=== PATIENT | male | born 1950 | race Caucasian/White ===

== ENCOUNTER 2017-07-27 15:06 | Inpatient (IN) | payer MEDICARE ==
--- OUTSIDE RECORDS SUMMARY | 2017-07-27 15:08 | XMS | Clinical Summary ---
:1950 Author Organization [facility] Address [address] [place] [address] Phone Care Team Providers Name Role Phone , Primary Care Provider Unavailable Allergies Not on File Current Medications Not on file Active Problems Not on file Social History Tobacco Use Types Packs/Day Years Used Date Never Assessed Sex Assigned at Date Recorded Not on file Last Filed Vital Signs Not on file Plan of Treatment Not on file Results Not on filefrom Last 3 Months
[2017-07-27] MEDS ORDERED: Ondansetron HCl/PF 4 MG/2 ML Vial IVP PRN (18:28)
[2017-07-27] MEDS ORDERED: Ondansetron ODT 4 MG TAB SL PRN (18:28)
[2017-07-27] MEDS ORDERED: Acetaminophen 325 MG TAB PO PRN (18:28)
[2017-07-27] MEDS ORDERED: Piperacillin/Tazobactam 3.375 GM in Sodium Chloride 0.9% 100 ML IVPB SCH ×2 (18:30→23:59)
[2017-07-27] MEDS ORDERED: traMADol HCl 50 MG TAB PO PRN (19:09)
[2017-07-27] MEDS ORDERED: PROVENTIL INHALER 6.7 G (200 INHALATIONS) INH PRN (19:09)
[2017-07-27] MEDS ORDERED: Fluticasone Propionate Nasal Spray 16 gm Bottle NASAL PRN (19:09)
--- NOTE | 2017-07-27 20:15 | HP ---
DATE OF ADMISSION: 07/27/2017 CHIEF COMPLAINT: Right hand pain. HISTORY OF PRESENT ILLNESS: Mr. Nelson is a 67-year-old male who was fishing 3 days ago. He was nuvia gifty a catfish when the fin spiked his right index finger. He had a very small puncture wound. Thi s does not bother him initially; however, over the next day, he developed swelling and pain of the f mindy. This has worsened. He had increased pain overnight. He presented to the [facility] earlier today and then was transferred for further care. He has been afebrile. He estela es any other injury. He has had no other recent infection. He is right hand dominant. He was on L evaquin from [place]. He has received vancomycin and Zosyn since arrival here today. PAST MEDICAL HISTORY: 1. Anxiety disorder. 2. Chronic back pain with lumbar radiculopathy. 3. Peptic ulcer disease. 4. Obesity. 5. Gastroesophageal reflux disease. 6. Benign prostatic hypertrophy. 7. History of encephalopathy from pain medication. PSYCHIATRIC HISTORY: Positive for anxiety disorder. PAST SURGICAL HISTORY: Ulcer surgery in 2008, hernia repair, tonsillectomy, cholecystectomy, previo us ACDF, previous lumbar back surgery, previous epidural spinal injection for radiculopathy and nerv e stimulator placement. SOCIAL HISTORY: The patient denies tobacco, alcohol, or drug use. ALLERGIES: To ZANAFLEX. FAMILY MEDICAL HISTORY: Noncontributory. PHYSICAL EXAMINATION: VITAL SIGNS: Temperature is 98.3, pulse is 78, respiratory rate 16, oxygen saturation 98, blood pre ssure 126/52. GENERAL: The patient is alert and oriented, sitting upright, in no apparent distress. RESPIRATORY: Breathing comfortably. ABDOMEN: Soft, nontender, nondistended. MUSCULOSKELETAL: The patient's right hand has swelling and erythema. He is very tender to palpatio n along the flexor tendon sheath. He has fusiform swelling. He has difficulty with flexion and ext ension of the finger. There is no open wound, no drainage. Sensation is intact distally. Two seco nd capillary refill. IMPRESSION: Early flexor tenosynovitis of the right index finger. PLAN: The patient has been started on vancomycin and Zosyn. We will continue this overnight. He s hould be n.p.o. at midnight tonight. He will elevate the hand. If he does not improve by tomorrow morning, we will take him to the operating room for irrigation and debridement of the index finger f lexor tendon sheath to hopefully eradicate infection and speed up his recovery process. He agrees w ith the plan and wants to proceed as scheduled.
[2017-07-27] MEDS: guaiFENesin ER 600 MG TAB PO SCH (21:30)
[2017-07-27] MEDS: Piperacillin/Tazobactam 3.375 GM in Sodium Chloride 0.9% 100 ML IVPB SCH (21:31)
[2017-07-27 21:59] VITALS: BMI 33.8
[2017-07-27] MEDS: ALPRAZolam 1 MG TAB PO PRN (22:21)
[2017-07-27] MEDS ORDERED: Vancomycin HCl 1.5 GM in Sodium Chloride 0.9% 250 ML 300 ML IVPB SCH (23:00)
[2017-07-28] MEDS: Piperacillin/Tazobactam 3.375 GM in Sodium Chloride 0.9% 100 ML IVPB SCH ×4 (04:00→23:35)
[2017-07-28] MEDS: Mometasone/Formoterol 120 PUFF INHALER INH SCH ×2 (08:21→19:58)
[2017-07-28] MEDS ORDERED: Bupivacaine PF 0.5% 30 ML VIAL ONE (08:59)
[2017-07-28] MEDS ORDERED: Midazolam HCl 2 mg/2 ml Vial ONE (08:59)
[2017-07-28] MEDS: guaiFENesin ER 600 MG TAB PO SCH ×2 (09:00→20:37)
[2017-07-28] MEDS ORDERED: Morphine Sulfate 2 MG/ML SYRINGE SLOW IVP PRN (09:22)
[2017-07-28] MEDS ORDERED: Propofol 200 MG/20 ML VIAL ONE (09:31)
[2017-07-28] MEDS ORDERED: Dexamethasone 20 MG/5 ML VIAL ONE (09:31)
[2017-07-28] MEDS ORDERED: Ondansetron HCl/PF 4 MG/2 ML Vial ONE (09:31)
--- NOTE | 2017-07-28 15:52 | OP ---
DATE OF OPERATION: 07/28/2017 OPERATION: Irrigation and debridement of right index finger infection with irrigation of flexor ten don sheath. PREOPERATIVE DIAGNOSIS: Right flexor tenosynovitis of the index finger with hand infection. POSTOPERATIVE DIAGNOSIS: Right flexor tenosynovitis of the index finger with hand infection. COMPLICATIONS: None. ESTIMATED BLOOD LOSS: Minimal. SURGEON: Mahendra Grover M.D. ANESTHESIA: General plus local. INDICATIONS: Mr. Nelson is a 67-year-old male who has developed a severe infection of the right index finger after a catfish fin injured his hands. He has been indicated for irrigation and debridement to eradicate infection and hopefully prevent further complication. Risks have been reviewed. He h as elected to proceed with the operation. DESCRIPTION OF PROCEDURE: Mr. Nelson was identified in the preoperative holding area. His correct ex tremity was marked. He was carried to the operating room. He was positioned supine. General anest hesia was induced. A multidisciplinary timeout was performed. The right upper extremity was preppe d and draped in sterile fashion. We began the procedure with incision of the index finger at the patient's puncture wound. We extend ed this over the palmar aspect to the flexor tendon. We exposed the tendon sheath. The sheath was incised. We cultured fluid from the sheath. At this point, we made a second small oblique incision over the palm proximal to the MCP joint. We again dissected down to the flexor tendon sheath. The sheath was opened once more. This allowed access proximally and distally. We then thoroughly irri gated with copious lavage, flushing the tendon sheath itself with an angiocatheter. We were able to achieve a good irrigation with copious fluid. Once we had a thorough irrigation, we loosely closed the wounds with 4-0 nylon suture. A sterile dressing was applied. The patient was then taken to [facility] recovery room in good condition without complication.
[2017-07-28] MEDS: Vancomycin HCl 1 GM in Premix Bag 1 BAG IVPB SCH (20:37)
[2017-07-29] MEDS: Piperacillin/Tazobactam 3.375 GM in Sodium Chloride 0.9% 100 ML IVPB SCH ×2 (05:50→12:18)
[2017-07-29] MEDS: Mometasone/Formoterol 120 PUFF INHALER INH SCH ×2 (06:23→18:43)
[2017-07-29] MEDS: HYDROcodone/Acetaminophen 5/325 mg Tablet PO PRN ×3 (06:38→21:41)
[2017-07-29] MEDS: ALPRAZolam 1 MG TAB PO PRN ×2 (06:38→23:30)
[2017-07-29] MEDS ORDERED: Milk Of Magnesia 30 ML UDCUP PO PRN (09:02)
[2017-07-29] MEDS: Vancomycin HCl 1 GM in Premix Bag 1 BAG IVPB SCH ×2 (10:10→10:26)
[2017-07-29] MEDS: guaiFENesin ER 600 MG TAB PO SCH ×2 (10:10→21:35)
[2017-07-29] MEDS: Amoxicillin/Potassium Clav 875 MG TAB PO SCH (21:34)
[2017-07-29] MEDS: Docusate 100 MG CAP PO SCH (21:35)
[2017-07-30] MEDS: Mometasone/Formoterol 120 PUFF INHALER INH SCH (07:08)
[2017-07-30 09:12] VITALS: BP 169/112; TEMP 98.4
[2017-07-30] MEDS: Docusate 100 MG CAP PO SCH (09:26)
[2017-07-30] MEDS: guaiFENesin ER 600 MG TAB PO SCH (09:26)
[2017-07-30] MEDS: Amoxicillin/Potassium Clav 875 MG TAB PO SCH (09:26)
[2017-07-30] MEDS: HYDROcodone/Acetaminophen 5/325 mg Tablet PO PRN (09:31)
--- NOTE | 2017-07-31 12:59 | DIS ---
DATE OF ADMISSION: 07/27/2017 DATE OF DISCHARGE: 07/30/2017 PREOPERATIVE DIAGNOSIS: Right flexor tenosynovitis to the index finger with hand infection secondar y to catfish sting. DISCHARGE DIAGNOSIS: Right flexor tenosynovitis to the index finger with hand infection secondary t o catfish sting. PROCEDURE: The patient underwent irrigation and debridement of right index finger infection with ir rigation of flexor tendon sheath. HOSPITAL COURSE: Hospital stay was unremarkable. The patient did not get a block, it did not wear off until late the second day, and by the time he started feeling better and moving his hand, he was a little bit dizzy , so he did spent a little more time in the hospital, though was anticipated, bu t he had no really other dramatic hospital complications. DISCHARGE CONDITION: Good/stable. DISPOSITION: Home. FOLLOWUP: Followup would be in 7-10 days, sooner if there are problems or concerns. DISCHARGE MEDICATIONS: Given with usage instructions. This is Seamus Hayward PA-C, dictating for Mahendra Grover M.D.
== END 2017-07-30 11:23 | disposition home or self-care (01) | DRG 514 ==
LOC: ERS 15:06 → SURG B 18:15
PROVIDERS: ADMIT Orthopaedic Surgery; ATTEND Orthopaedic Surgery
PROC: 0JDJ0ZZ Extraction of Right Hand Subcutaneous Tissue and Fascia, Open Approach (ICD-10-PCS; principal; 2017-07-28)
DX: M65.841 Other synovitis and tenosynovitis, right hand (principal); K27.9 Peptic ulcer, site unspecified, unspecified as acute or chronic, without hemorrhage or perforation; L03.011 Cellulitis of right finger; F41.9 Anxiety disorder, unspecified; G89.29 Other chronic pain; M54.9 Dorsalgia, unspecified; M54.16 Radiculopathy, lumbar region; E66.9 Obesity, unspecified; Z68.33 Body mass index [BMI] 33.0-33.9, adult; K21.9 Gastro-esophageal reflux disease without esophagitis; N40.0 Benign prostatic hyperplasia without lower urinary tract symptoms; Z88.8 Allergy status to other drugs, medicaments and biological substances; Z96.651 Presence of right artificial knee joint
CPT/HCPCS: 87070; 87205; 94664; 96374; A4216; J1100; J2250; J2270; J2405; J2543; J2704; J3370; J7050; S0020

== ENCOUNTER 2018-04-25 18:00 | Emergency (ER) | payer MEDICARE ==
--- NOTE | 2018-04-25 21:53 | CT ---
CTA OF THE CHEST WITH CONTRAST: 04/25/18 HISTORY: Elevated D-dimer and shortness of breath. TECHNIQUE: Multiple contiguous axial images were obtained in a CTA of the chest per pulmonary embolism protocol. 3D oblique MIP reformats and direct coronal reformats were performed. FINDINGS: The pulmonary arteries are well opacified without filling defects to suggest pulmonary emboli. The he art is normal in size. No hilar or mediastinal lymphadenopathy are seen. Atelectasis is seen in the dependent aspect of the lungs. No pneumothorax or pleural effusion are see n. No focal infiltrates or suspicious pulmonary nodules are seen. The visualized subdiaphragmatic structures are unremarkable. The patient is status post cholecystecto my. Degenerative changes are seen in the spine. A spinal stimulation device is seen in the mid thorac ic spine. the chest wall soft tissues are unremarkable. IMPRESSION: No evidence of pulmonary thromboembolism. POS: [facility]
[2018-04-25 22:45] LABS: Troponin I 0.035 ng/mL (< 0.028)
== END 2018-04-25 22:45 | disposition home or self-care (01) ==
LOC: ERS 18:00
DX: R06.00 Dyspnea, unspecified (principal); J06.9 Acute upper respiratory infection, unspecified; K21.9 Gastro-esophageal reflux disease without esophagitis; F17.220 Nicotine dependence, chewing tobacco, uncomplicated; Z79.899 Other long term (current) drug therapy
CPT/HCPCS: 36415; 71275; 83605; 83690; 85379; 94640; J7620

== ENCOUNTER 2019-02-13 19:33 | Emergency (ER) | payer MEDICARE ==
--- NOTE | 2019-02-13 20:53 | RAD ---
Chest 2 views HISTORY: Fall. Chest injury. COMPARISON: 04/25/2018. FINDINGS: Cardiac silhouette and pulmonary vasculature are unremarkable. Mediastinum is midline with dorsal column stimulator leads. No confluent airspace consolidation, pneumothorax, or pleural fluid. Degenerative changes of the thoracic spine. IMPRESSION: No active cardiopulmonary abnormalities are demonstrated.
--- NOTE | 2019-02-13 20:54 | RAD ---
Left knee 4 views HISTORY: Left knee injury. FINDINGS: Joint spaces are preserved. Osteophytosis most pronounced at the tibial spines. Tiny linear ossific fragment lies immediately medial to the medial tibial spine. No acute fracture, dislocation, or fluid distention of the suprapatellar bursa are apparent. IMPRESSION: Degenerative changes. No acute osseous abnormalities are demonstrated.
--- NOTE | 2019-02-13 21:15 | CT ---
CT head noncontrast HISTORY: Head injury. COMPARISON: 01/27/2018. FINDINGS: There is no evidence of acute intracranial hemorrhage or infarct. Postoperative changes lef t parietal calvarium with underlying encephalomalacia, stable. 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 There is no mass effect or shift of midline structures. Visualized para nasal sinuses remain well aerated. IMPRESSION: Chronic type findings are stable. No acute intracranial abnormalities are demonstrated.
[2019-02-13] MEDS ORDERED: Ketorolac Tromethamine 30 MG/ML VIAL ONE (21:56)
[2019-02-13] MEDS ORDERED: Acetaminophen 325 MG TAB ONE (21:56)
[2019-02-13] MEDS ORDERED: Bacitracin Zinc 1 Packet ONE (22:14)
== END 2019-02-13 22:52 | disposition home or self-care (01) ==
LOC: ERS 19:33
DX: S51.811A Laceration without foreign body of right forearm, initial encounter (principal); S80.212A Abrasion, left knee, initial encounter; K21.9 Gastro-esophageal reflux disease without esophagitis; F41.9 Anxiety disorder, unspecified; F17.220 Nicotine dependence, chewing tobacco, uncomplicated; Z79.899 Other long term (current) drug therapy; Z79.51 Long term (current) use of inhaled steroids; W18.30XA Fall on same level, unspecified, initial encounter; Y93.02 Activity, running
CPT/HCPCS: 70450; 71046; 96372; J1885

== ENCOUNTER 2020-09-27 14:38 | Inpatient (IN) | payer MEDICARE ==
[~2020-09-27 14:38] MED LIST: Iopamidol-370 76% 500 ML 1 ML ONE
[2020-09-27] MEDS ORDERED: Senokot S 8.6-50 MG TAB PO PRN (16:05)
[2020-09-27] MEDS ORDERED: Acetaminophen 325 MG TAB PO PRN (16:05)
[2020-09-27] MEDS ORDERED: Ondansetron PF 4 MG/2 ML Vial IVP PRN (16:05)
[2020-09-27] MEDS ORDERED: Ketorolac Tromethamine 30 MG/ML VIAL ONE (16:28)
[2020-09-27 16:40] LABS: PTT 29.9 sec (22.9-36.1); Prothrombin Time 13.7 sec (12.0-14.7)
[2020-09-27] MEDS ORDERED: Albuterol 200 PUFF (6.7GM INHALER) INH PRN (16:42)
[2020-09-27] MEDS ORDERED: Morphine 4 MG/ML VIAL ONE (17:04)
[2020-09-27] MEDS ORDERED: Dexamethasone 4 mg/ml Vial ONE (17:04)
[2020-09-27 17:13] LABS: SARS-CoV-2 NAA Rapid Test Not Detected (NotDetected)
[2020-09-27] MEDS ORDERED: cefTRIAXone\\ROCEPHIN 1 GM in Sodium Chloride 0.9% 100 ML IVPB SCH (18:00)
--- NOTE | 2020-09-27 21:09 | CT ---
CTA THORAX WITH CONTRAST: 09/27/20at 8:40 p.m. (Computed Tomographic Angiography, chest(noncoronary) with contrast material, and image postprocessin g) (PE protocol) HISTORY: 70-year-old male with chest pain and hypoxia with dyspnea. TECHNIQUE: IV injection of iodinated contrast: 100 mL Isovue 370 Scan acquisition timing attempted to coincide with iodinated contrast bolus reaching maximal density in pulmonary arteries. 3D MIP reconstructions. COMPARISON: 04/25/18. FINDINGS: There is a new finding of multifocal patchy infiltrates in central and peripheral locations throughou t superior and posterior segments of bilateral lower lobes, bilateral upper lobes, right greater than left. There is milder involvement of the right middle lobe. No pleural effusion or pneumothorax. No thoracic aortic aneurysm or dissection. No evidence of pulmonary thromboembolism. There is again demonstration of a small soft tissue density filling defect in the right side of the l umen of the distal trachea, including at the justino. This could be recurrent secretion or a polyp. No high grade stenosis of trachea or bilateral mainstem bronchi. IMPRESSION: 1. Moderately severe bilateral lower lobe and upper lobe infiltrates representing pneumonia. 2. No pulmonary thromboembolism. jn[] POS: [facility]
[2020-09-27] MEDS: Azithromycin 500 MG in Sodium Chloride 0.9% 250 ML 250 ML IVPB SCH (22:53)
[2020-09-27] MEDS: Famotidine 20 MG TAB PO SCH (22:53)
[2020-09-27] MEDS: Morphine 4 MG/ML VIAL SLOW IVP PRN (22:54)
[2020-09-27] MEDS: Enoxaparin Sodium 40 MG/0.4 ML SYRINGE SC SCH (22:54)
[2020-09-27] MEDS: Mometasone 200 MCG/Formoterol 5 MCG 120 PUFF INHALER INH SCH (22:58)
[2020-09-27 23:46] VITALS: BMI 33.0
--- NOTE | 2020-09-28 00:18 | HP ---
CHIEF COMPLAINT: Shortness of breath. HISTORY OF PRESENT ILLNESS: The patient is a 70-year-old male, who initially presented at [facility] with complaints of shortness of breath and some chest pain going on for the past week. The patient states that he was at [facility] and was recently discharged on last week . He was unable to tell me what he was treated for. The patient states that he had a Fountain catheter placed at [facility]. He states that his pain in the chest described as tightness, however, this has been going on for the past week. He denies lifting any heavy objects. The patient lives alone. He denies any fever or chills. Denies any cough or sputum production. REVIEW OF SYSTEMS: All negative except for the ones mentioned above in the HPI. PAST MEDICAL HISTORY: 1. The patient has a history of anxiety disorder, chronic back pain with lumbar radiculopathy. 2. Peptic ulcer disease. 3. Obesity. 4. Gastroesophageal reflux disease. 5. Benign prostatic hypertrophy. 6. History of encephalopathy from pain medications. 7. Hepatitis C. PAST SURGICAL HISTORY: 1. He has a history of ulcer surgery in 2008, hernia repair. 2. Tonsillectomy. 3. Cholecystectomy, lumbar back surgery. 4. Previous epidural spinal injection for radiculopathy and nerve stimulator placement. SOCIAL HISTORY: The patient chews tobacco. Denies any alcohol use or drug use. He is a full code. Lives by himself. ALLERGIES: HE IS ALLERGIC TO ZANAFLEX. FAMILY HISTORY: No history of heart disease or stroke. PHYSICAL EXAMINATION: VITAL SIGNS: As of the following; temperature of 97.9, 99% on room air, 111/65, 81 pulse rate, 14. GENERAL: He is awake, alert, and oriented x3. Does not appear in any distress. CV: S1, S2 present. No murmurs, rubs, or gallops. LUNGS: Clear to auscultation. No rhonchi or wheezes noted. ABDOMEN: Soft and nontender. Bowel sounds are present x2. He does have a mid abdominal scar. EXTREMITIES: Mild 1+ lower extremity edema. Pedal pulses are present x2. Neurovascular escoto, he is able to move bilateral upper extremity and bilateral lower extremity. MEDICATIONS: This is per the ER note. The patient does not recall them by heart. 1. Alprazolam 2 mg t.i.d. as needed. 2. Ambien 5 mg daily. 3. Flomax 0.4 mg daily. 4. Protonix 40 mg daily. 5. Zofran as needed and promethazine as needed. REVIEW OF SYSTEMS: As mentioned, all negative except for the ones mentioned in the HPI. LABORATORY RESULTS: WBC of 6.7, hemoglobin of 11.1, hematocrit of 32.1, platelets of 193. He has no neutrophils that are elevated. Chemistry; sodium 138, potassium of 3.7, BUN of 8, creatinine 0.71, glucose is 150. His BNP is 129. His troponin is 0.036. His LDH is 326. The patient had a chest x-ray done that indicate interval appearance of patchy bilateral infiltrates, worse in the right lung. Infectious is presumed and COVID should be strongly considered. ASSESSMENT AND PLAN: The patient is a 70-year-old male, who presents to the hospital with shortness of breath. 1. Shortness of breath could be secondary to COVID pneumonia versus influenza versus bacterial pneumonia. At this time, he does not have a significant elevated white count. He is afebrile. He is on room air. His BNP is just mildly elevated. Also, heart failure is definitely a possibility. His last echocardiogram was in 2016, which indicated an EF of 55% to 60% with mild MR and TR. I will go ahead and get records from [facility] to see if he was recently there. He will be undergoing a CTA. I will take a look at that. I will start him on prophylactic Decadron for now. We will check COVID swab on him and continue to monitor. I will also go ahead and start the patient on prophylactic antibiotics. He states that he was in the hospital and was discharged last . At this time, I will put him on some vancomycin and some Zosyn until I get the CT scan and then will go from there. I will also order some inflammatory markers and put him on a droplet precaution. 2. Chest pain. The patient's pain is reproducible upon palpation. His troponins are mildly elevated, however, they are not significantly elevated from his previous one. The patient is unable to tell me if he really has seen a cafeteria director. Does not know if he has any stents. He is not a very great historian. I will go ahead and order an echocardiogram once his COVID is ruled out. 3. Chronic back pain. We will continue his home medications. 4. Deep venous thrombosis prophylaxis. We will put the patient on subcu Lovenox. Job ID: [id number]
[2020-09-28] MEDS: Piperacillin/Tazobactam 3.375 GM in Sodium Chloride 0.9% 100 ML IVPB SCH ×5 (00:56→23:55)
[2020-09-28 01:44] LABS: Bacteria/HPF None Seen HPF (None Seen); Bilirubin Negative (Negative); Blood, Urine 2+ (Negative); Clarity Clear (Clear); Glucose, Urine (Dipstick) Normal (Negative); Ketone, Urine Negative (Negative); Leukocyte Negative Leu/uL (Negative); Nitrite Negative (Negative); Protein, Urine (Dipstick) Negative (Neg-Trace); Specific Gravity, Urine 1.013 (1.002-1.036); Squamous Epithelial None Seen HPF (0-3); Urobilinogen Normal mg/dL (Less than 2); WBC/HPF 0-3 HPF (0-3)
[2020-09-28 01:52] LABS: Urine Culture Reflex No No
[2020-09-28 05:44] LABS: #Lymphocytes 0.7 thou/uL (1.20-3.40); #Monocytes 0.1 thou/uL (0.11-0.59); #Neutrophils 1.6 thou/uL (1.40-6.50); %Basophils 0.4 % (0.0-1.0); %Eosinophils 0.1 % (0.0-10.0); %Lymphocytes 30.5 % (21.0-51.0); %Monocytes 3.3 % (0.0-10.0); %Neutrophils 65.7 % (42.0-75.0); Mean Corpuscular HGB CONC 33.6 g/dL (32.0-36.0); Mean Corpuscular Hemoglobin 30.6 pg (27.0-31.0); Mean Corpuscular Volume 91.2 fL (78.0-98.0); Mean Platelet Volume 7.9 fL (7.4-10.4); Platelet Count 212 thou/uL (130-400); RBC Distribution Width 12.9 % (11.5-14.5); Red Blood Cell (RBC) Count 3.59 mill/uL (4.70-6.10); White Blood Cell (WBC) Count 2.4 thou/uL (4.8-10.8)
[2020-09-28 06:09] LABS: ALT (SGPT) 21 U/L (8-55); AST (SGOT) 23 U/L (5-34); Albumin 3.1 g/dL (3.4-4.8); Alkaline Phosphatase 91 U/L (40-110); Anion Gap 14 mmol/L (10-20); BUN (Urea Nitrogen) 11 mg/dL (8.4-25.7); Bilirubin, Total 0.5 mg/dL (0.2-1.2); Calc. Creatinine Clearance 135 mL/min (70-130); Calcium 8.4 mg/dL (7.8-10.44); Carbon Dioxide 19 mmol/L (23-31); Chloride 110 mmol/L (98-107); Globulin 3.8 g/dL (2.4-3.5); Glucose 204 mg/dL (80-115); Potassium 4.6 mmol/L (3.5-5.1); Protein, Total 6.9 g/dL (5.8-8.1); Sodium 138 mmol/L (136-145)
[2020-09-28] MEDS: Morphine 4 MG/ML VIAL SLOW IVP PRN ×3 (06:16→16:31)
[2020-09-28] MEDS: Mometasone 200 MCG/Formoterol 5 MCG 120 PUFF INHALER INH SCH ×2 (06:17→18:32)
[2020-09-28] MEDS ORDERED: Dexamethasone 4 mg/ml Vial SLOW IVP SCH (09:00)
[2020-09-28] MEDS: Enoxaparin Sodium 40 MG/0.4 ML SYRINGE SC SCH ×2 (09:02→20:04)
[2020-09-28] MEDS: Famotidine 20 MG TAB PO SCH ×2 (09:03→20:04)
[2020-09-28] MEDS: Tamsulosin HCl 0.4 MG CAP PO SCH (09:03)
[2020-09-28] MEDS: Gabapentin 300 MG CAP PO SCH (09:03)
[2020-09-28 14:45] LABS: SARS-CoV-2 MS2 Positive; SARS-CoV-2 N Gene Negative; SARS-CoV-2 S Gene Negative; SARS-CoV-2 by NAA Not Detected (NotDetected); SARS-CoV-2 orf1ab Negative
[2020-09-28] MEDS: Azithromycin 500 MG in Sodium Chloride 0.9% 250 ML 250 ML IVPB SCH (20:10)
[2020-09-28] MEDS ORDERED: chlorproMAZINE HCl 50 MG/2 ML AMP IM PRN (20:54)
[2020-09-28] MEDS: ALPRAZolam 1 MG TAB PO PRN (21:51)
[2020-09-28] MEDS: HYDROcodone/Acetaminophen 5/325 mg Tablet PO PRN (23:56)
[2020-09-29] MEDS ORDERED: Baclofen 10 MG TAB PO PRN (02:32)
[2020-09-29] MEDS: HYDROcodone/Acetaminophen 5/325 mg Tablet PO PRN ×4 (04:01→23:05)
[2020-09-29] MEDS: Piperacillin/Tazobactam 3.375 GM in Sodium Chloride 0.9% 100 ML IVPB SCH ×2 (06:13→12:11)
[2020-09-29] MEDS: Mometasone 200 MCG/Formoterol 5 MCG 120 PUFF INHALER INH SCH ×2 (06:14→17:38)
[2020-09-29] MEDS ORDERED: Furosemide 20 MG/2 ML VIAL SLOW IVP SCH (08:00)
--- NOTE | 2020-09-29 08:05 | PDOC.HOSPP ---
- Subjective Encounter Date: 09/29/20 Encounter Time: 11:15 Subjective: pt up in bed complains of pain to his right shoulder. - Objective Vital Signs & Weight: Vital Signs (12 hours) Temp Pulse Resp BP Pulse Ox 09/29/20 06:14 78 20 95 09/29/20 03:50 97.9 F 72 20 130/67 95 09/28/20 23:25 97.6 F 84 20 120/59 L 93 L 09/28/20 21:45 97.7 F 86 18 107/56 L 95 Weight Weight 230 lb 1.6 oz I&O: 09/28/20 09/29/20 09/30/20 06:59 06:59 06:59 Intake Total 240 Output Total 800 1300 Balance -560 -1300 Result Diagrams: 09/29/20 09:05 09/29/20 09:05 Hospitalist ROS - Review of Systems Cardiovascular: denies: chest pain, palpitations, orthopnea, paroxysmal noc. dyspnea, edema, light headedness, other Gastrointestinal: denies: nausea, vomiting, abdominal pain, diarrhea, constipation, melena, hematochezia, other Genitourinary: denies: dysuria, frequency, incontinence, hematuria, retention, other - Medication Medications: Active Medications Generic Name Dose Route Start Last Admin Trade Name Freq PRN Reason Stop Dose Admin Acetaminophen 650 mg 09/27/20 16:05 09/28/20 04:31 Acetaminophen 325 Mg Tab PO 650 mg Q6H PRN Administration Headache/Fever/Mild Pain (1-3) Hydrocodone Bitart/Acetaminophen 1 tab 09/28/20 23:43 09/28/20 23:56 Hydrocodone/Acetaminophen 5/325 Mg Tablet PO 1 tab Q4H PRN Administration Moderate Pain (4-6) Alprazolam 2 mg 09/28/20 03:54 09/28/20 21:51 Alprazolam 1 Mg Tab PO 2 mg TIDPRN PRN Administration ANXIETY Chlorpromazine HCl 25 mg 09/28/20 20:54 09/28/20 23:57 Chlorpromazine Hcl 50 Mg/2 Ml Amp IM 09/29/20 20:55 25 mg ONE PRN Administration Hiccups Famotidine 20 mg 09/27/20 21:00 09/28/20 20:04 Famotidine 20 Mg Tab PO 20 mg BID MIKE Administration Gabapentin 300 mg 09/28/20 09:00 09/28/20 09:03 Gabapentin 300 Mg Cap PO 300 mg DAILY MIKE Administration Azithromycin 500 mg/ Sodium 250 mls @ 250 mls/hr 09/27/20 18:00 09/28/20 20:10 Chloride IVPB 250 mls Q24HR MIKE Administration Piperacillin Sod/Tazobactam 100 mls @ 200 mls/hr 09/27/20 23:59 09/29/20 06:13 Sod 3.375 gm/ Sodium Chloride IVPB 100 mls Q6HR MIKE Administration Mometasone Furoate/Formoterol Fumar 2 puff 09/27/20 18:30 09/29/20 06:14 Mometasone 200 Mcg/Formoterol 5 Mcg 120 Puff Inhaler INH 2 puff BID-RT MIKE Administration Senna/Docusate Sodium 2 tab 09/27/20 16:05 09/28/20 23:56 Senokot S 8.6-50 Mg Tab PO 2 tab BIDPRN PRN Administration Constipation Tamsulosin HCl 0.4 mg 09/28/20 09:00 09/28/20 09:03 Tamsulosin Hcl 0.4 Mg Cap PO 0.4 mg DAILY MIKE Administration - Exam Neck: negative: supple, symmetric, no JVD, no thyromegaly, no lymphadenopathy, no carotid bruit, JVD Heart: negative: RRR, no murmur, no gallops, no rubs, normal peripheral pulses, irregular, diminshed peripheral pulses, murmur present, II/IV, III/IV Respiratory: negative: CTAB, no wheezes, no rales, no ronchi, normal chest expansion, no tachypnea, normal percussion, rales, rhonchi, tachypneic, wheezes Gastrointestinal: negative: soft, non-tender, non-distended, normal bowel sounds, no palpable masses, no hepatomegaly, no splenomegaly, no bruit, no guarding, no rigidity, tender to palpation, distended, diminished bowl sounds, voluntary guarding Extremities: 1+ LE edema Hosp A/P (1) Bilateral pneumonia Code(s): J18.9 - PNEUMONIA, UNSPECIFIED ORGANISM Status: Acute (2) Anxiety and depression Code(s): F41.9 - ANXIETY DISORDER, UNSPECIFIED; F32.9 - MAJOR DEPRESSIVE DISORDER, SINGLE EPISODE, UNSPECIFIED Status: Chronic (3) BPH (benign prostatic hypertrophy) Code(s): N40.0 - BENIGN PROSTATIC HYPERPLASIA WITHOUT LOWER URINRY TRACT SYMP Status: Chronic (4) Cervical radiculopathy Code(s): M54.12 - RADICULOPATHY, CERVICAL REGION Status: Chronic (5) GERD (gastroesophageal reflux disease) Code(s): K21.9 - GASTRO-ESOPHAGEAL REFLUX DISEASE WITHOUT ESOPHAGITIS Status: Chronic (6) Hepatitis C Code(s): B19.20 - UNSPECIFIED VIRAL HEPATITIS C WITHOUT HEPATIC COMA Status: Chronic - Plan pt's two covid test negative. will continue abx for pneumonia. His cta has high suspicious of covid. will get PT to evaluate pt. Pt on dvt ppx.
[2020-09-29] MEDS: Famotidine 20 MG TAB PO SCH ×2 (08:56→19:57)
[2020-09-29] MEDS: Tamsulosin HCl 0.4 MG CAP PO SCH (08:56)
[2020-09-29] MEDS: Gabapentin 300 MG CAP PO SCH (08:57)
[2020-09-29] MEDS: Enoxaparin Sodium 40 MG/0.4 ML SYRINGE SC SCH (08:57)
[2020-09-29 09:20] LABS: #Lymphocytes 1.2 thou/uL (1.20-3.40); #Monocytes 0.4 thou/uL (0.11-0.59); #Neutrophils 7.7 thou/uL (1.40-6.50); %Basophils 0.2 % (0.0-1.0); %Eosinophils 0.2 % (0.0-10.0); %Lymphocytes 13.3 % (21.0-51.0); %Monocytes 3.7 % (0.0-10.0); %Neutrophils 82.7 % (42.0-75.0); Hemoglobin 10.4 g/dL (14.0-18.0); Mean Corpuscular HGB CONC 33.2 g/dL (32.0-36.0); Mean Corpuscular Volume 93.4 fL (78.0-98.0); Mean Platelet Volume 7.7 fL (7.4-10.4); Platelet Count 232 thou/uL (130-400); RBC Distribution Width 12.9 % (11.5-14.5); Red Blood Cell (RBC) Count 3.35 mill/uL (4.70-6.10); White Blood Cell (WBC) Count 9.3 thou/uL (4.8-10.8)
[2020-09-29 09:37] LABS: ALT (SGPT) 24 U/L (8-55); AST (SGOT) 22 U/L (5-34); Albumin 3.2 g/dL (3.4-4.8); Alkaline Phosphatase 89 U/L (40-110); Anion Gap 15 mmol/L (10-20); BUN (Urea Nitrogen) 13 mg/dL (8.4-25.7); Bilirubin, Total 0.4 mg/dL (0.2-1.2); Calc. Creatinine Clearance 115 mL/min (70-130); Calcium 8.6 mg/dL (7.8-10.44); Carbon Dioxide 20 mmol/L (23-31); Chloride 112 mmol/L (98-107); Globulin 3.7 g/dL (2.4-3.5); Glucose 172 mg/dL (80-115); Potassium 3.8 mmol/L (3.5-5.1); Protein, Total 6.9 g/dL (5.8-8.1); Sodium 143 mmol/L (136-145)
[2020-09-29] MEDS: Lidocaine 4% Topical Sol 50 ML BOT TOP SCH ×2 (12:11→15:39)
--- NOTE | 2020-09-29 15:17 | PDOC.HOSPP ---
- Subjective Encounter Date: 09/29/20 Encounter Time: 11:15 Subjective: pt up in bed denies any chest pain or sob. - Objective Vital Signs & Weight: Vital Signs (12 hours) Temp Pulse Resp BP Pulse Ox 09/29/20 12:30 97.1 F L 72 16 133/81 100 09/29/20 08:40 97.6 F 90 18 142/82 H 100 09/29/20 06:14 78 20 95 09/29/20 03:50 97.9 F 72 20 130/67 95 Weight Weight 230 lb 1.6 oz I&O: 09/28/20 09/29/20 09/30/20 06:59 06:59 06:59 Intake Total 240 Output Total 800 1300 Balance -560 -1300 Result Diagrams: 09/29/20 09:05 09/29/20 09:05 Hospitalist ROS - Review of Systems Cardiovascular: denies: chest pain, palpitations, orthopnea, paroxysmal noc. dyspnea, edema, light headedness, other Gastrointestinal: denies: nausea, vomiting, abdominal pain, diarrhea, constipation, melena, hematochezia, other Genitourinary: denies: dysuria, frequency, incontinence, hematuria, retention, other - Medication Medications: Active Medications Generic Name Dose Route Start Last Admin Trade Name Freq PRN Reason Stop Dose Admin Acetaminophen 650 mg 09/27/20 16:05 09/28/20 04:31 Acetaminophen 325 Mg Tab PO 650 mg Q6H PRN Administration Headache/Fever/Mild Pain (1-3) Hydrocodone Bitart/Acetaminophen 1 tab 09/28/20 23:43 09/29/20 08:56 Hydrocodone/Acetaminophen 5/325 Mg Tablet PO 1 tab Q4H PRN Administration Moderate Pain (4-6) Alprazolam 2 mg 09/28/20 03:54 09/28/20 21:51 Alprazolam 1 Mg Tab PO 2 mg TIDPRN PRN Administration ANXIETY Chlorpromazine HCl 25 mg 09/28/20 20:54 09/28/20 23:57 Chlorpromazine Hcl 50 Mg/2 Ml Amp IM 09/29/20 20:55 25 mg ONE PRN Administration Hiccups Enoxaparin Sodium 40 mg 09/29/20 09:00 09/29/20 08:57 Enoxaparin Sodium 40 Mg/0.4 Ml Syringe SC 40 mg DAILY MIKE Administration Famotidine 20 mg 09/27/20 21:00 09/29/20 08:56 Famotidine 20 Mg Tab PO 20 mg BID MIKE Administration Gabapentin 300 mg 09/28/20 09:00 09/29/20 08:57 Gabapentin 300 Mg Cap PO 300 mg DAILY MIKE Administration Azithromycin 500 mg/ Sodium 250 mls @ 250 mls/hr 09/27/20 18:00 09/28/20 20:10 Chloride IVPB 250 mls Q24HR MIKE Administration Piperacillin Sod/Tazobactam 100 mls @ 200 mls/hr 09/27/20 23:59 09/29/20 12:11 Sod 3.375 gm/ Sodium Chloride IVPB 100 mls Q6HR MIKE Administration Mometasone Furoate/Formoterol Fumar 2 puff 09/27/20 18:30 09/29/20 06:14 Mometasone 200 Mcg/Formoterol 5 Mcg 120 Puff Inhaler INH 2 puff BID-RT MIKE Administration Senna/Docusate Sodium 2 tab 09/27/20 16:05 09/28/20 23:56 Senokot S 8.6-50 Mg Tab PO 2 tab BIDPRN PRN Administration Constipation Tamsulosin HCl 0.4 mg 09/28/20 09:00 09/29/20 08:56 Tamsulosin Hcl 0.4 Mg Cap PO 0.4 mg DAILY MIKE Administration - Exam Neck: negative: supple, symmetric, no JVD, no thyromegaly, no lymphadenopathy, no carotid bruit, JVD Heart: negative: RRR, no murmur, no gallops, no rubs, normal peripheral pulses, irregular, diminshed peripheral pulses, murmur present, II/IV, III/IV Respiratory: negative: CTAB, no wheezes, no rales, no ronchi, normal chest expansion, no tachypnea, normal percussion, rales, rhonchi, tachypneic, wheezes Gastrointestinal: negative: soft, non-tender, non-distended, normal bowel sounds, no palpable masses, no hepatomegaly, no splenomegaly, no bruit, no guarding, no rigidity, tender to palpation, distended, diminished bowl sounds, voluntary guarding Extremities: 1+ LE edema Hosp A/P (1) Bilateral pneumonia Code(s): J18.9 - PNEUMONIA, UNSPECIFIED ORGANISM Status: Acute (2) Anxiety and depression Code(s): F41.9 - ANXIETY DISORDER, UNSPECIFIED; F32.9 - MAJOR DEPRESSIVE DISORDER, SINGLE EPISODE, UNSPECIFIED Status: Chronic (3) BPH (benign prostatic hypertrophy) Code(s): N40.0 - BENIGN PROSTATIC HYPERPLASIA WITHOUT LOWER URINRY TRACT SYMP Status: Chronic (4) Cervical radiculopathy Code(s): M54.12 - RADICULOPATHY, CERVICAL REGION Status: Chronic (5) GERD (gastroesophageal reflux disease) Code(s): K21.9 - GASTRO-ESOPHAGEAL REFLUX DISEASE WITHOUT ESOPHAGITIS Status: Chronic (6) Hepatitis C Code(s): B19.20 - UNSPECIFIED VIRAL HEPATITIS C WITHOUT HEPATIC COMA Status: Chronic - Plan pt's two covid test negative. will continue abx for pneumonia. His cta has high suspicious of covid. will get PT to evaluate pt. Pt on dvt ppx. 09/29 will check another coivd test and will give him one dose of lasix. Asked for records from [facility]. pt had gama placed at [facility]. will continue current abx. pt evaluated by speech no change in consistency. PT recommeded pt for rehab. will consult correctional case records supervisor.
[2020-09-29 17:40] LABS: Anion Gap 16 mmol/L (10-20); BUN (Urea Nitrogen) 16 mg/dL (8.4-25.7); Calc. Creatinine Clearance 125 mL/min (70-130); Calcium 8.7 mg/dL (7.8-10.44); Carbon Dioxide 17 mmol/L (23-31); Chloride 113 mmol/L (98-107); Glucose 135 mg/dL (80-115); Potassium 4.2 mmol/L (3.5-5.1); Sodium 142 mmol/L (136-145)
[2020-09-29] MEDS ORDERED: Metoprolol Tartrate 25 MG TAB PO SCH (19:15)
[2020-09-29] MEDS: ALPRAZolam 1 MG TAB PO PRN (19:55)
[2020-09-29 20:10] LABS: SARS-CoV-2 MS2 Positive; SARS-CoV-2 N Gene Negative; SARS-CoV-2 S Gene Negative; SARS-CoV-2 by NAA Not Detected (NotDetected); SARS-CoV-2 orf1ab Negative
[2020-09-30] MEDS: Mometasone 200 MCG/Formoterol 5 MCG 120 PUFF INHALER INH SCH ×2 (06:48→18:38)
[2020-09-30] MEDS: Enoxaparin Sodium 40 MG/0.4 ML SYRINGE SC SCH (08:07)
[2020-09-30] MEDS: Gabapentin 300 MG CAP PO SCH (08:08)
[2020-09-30] MEDS: Famotidine 20 MG TAB PO SCH ×2 (08:08→20:32)
[2020-09-30] MEDS: Tamsulosin HCl 0.4 MG CAP PO SCH (08:09)
[2020-09-30] MEDS: HYDROcodone/Acetaminophen 5/325 mg Tablet PO PRN ×3 (08:51→20:32)
[2020-09-30] MEDS: ALPRAZolam 1 MG TAB PO PRN ×2 (10:27→23:19)
--- NOTE | 2020-09-30 16:34 | PDOC.HOSPP ---
- Subjective Encounter Date: 09/30/20 Encounter Time: 11:45 Subjective: pt up in bed no complains - Objective Vital Signs & Weight: Vital Signs (12 hours) Temp Pulse Resp BP Pulse Ox 09/30/20 16:07 98.2 F 77 20 122/71 97 09/30/20 08:00 97.8 F 74 24 H 135/70 100 Weight Weight 230 lb 1.6 oz I&O: 09/29/20 09/30/20 10/01/20 06:59 06:59 06:59 Intake Total 480 Output Total 1300 900 Balance -1300 -420 Result Diagrams: 09/29/20 09:05 09/29/20 17:14 Hospitalist ROS - Review of Systems Cardiovascular: denies: chest pain, palpitations, orthopnea, paroxysmal noc. dyspnea, edema, light headedness, other Gastrointestinal: denies: nausea, vomiting, abdominal pain, diarrhea, constipation, melena, hematochezia, other Genitourinary: denies: dysuria, frequency, incontinence, hematuria, retention, other - Medication Medications: Active Medications Generic Name Dose Route Start Last Admin Trade Name Freq PRN Reason Stop Dose Admin Acetaminophen 650 mg 09/27/20 16:05 09/28/20 04:31 Acetaminophen 325 Mg Tab PO 650 mg Q6H PRN Administration Headache/Fever/Mild Pain (1-3) Hydrocodone Bitart/Acetaminophen 1 tab 09/28/20 23:43 09/29/20 17:38 Hydrocodone/Acetaminophen 5/325 Mg Tablet PO 1 tab Q4H PRN Administration Moderate Pain (4-6) Hydrocodone Bitart/Acetaminophen 2 tab 09/28/20 23:43 09/30/20 13:03 Hydrocodone/Acetaminophen 5/325 Mg Tablet PO 2 tab Q4H PRN Administration Severe Pain (7-10) Alprazolam 2 mg 09/28/20 03:54 09/30/20 10:27 Alprazolam 1 Mg Tab PO 2 mg TIDPRN PRN Administration ANXIETY Enoxaparin Sodium 40 mg 09/29/20 09:00 09/30/20 08:07 Enoxaparin Sodium 40 Mg/0.4 Ml Syringe SC 40 mg DAILY MIKE Administration Famotidine 20 mg 09/27/20 21:00 09/30/20 08:08 Famotidine 20 Mg Tab PO 20 mg BID MIKE Administration Gabapentin 300 mg 09/28/20 09:00 09/30/20 08:08 Gabapentin 300 Mg Cap PO 300 mg DAILY MIKE Administration Levofloxacin 750 mg/ Device 150 mls @ 100 mls/hr 09/29/20 16:00 09/30/20 15:33 IVPB 150 mls 1600 MIKE Administration Mometasone Furoate/Formoterol Fumar 2 puff 09/27/20 18:30 09/30/20 06:48 Mometasone 200 Mcg/Formoterol 5 Mcg 120 Puff Inhaler INH 2 puff BID-RT IMKE Administration Senna/Docusate Sodium 2 tab 09/27/20 16:05 09/28/20 23:56 Senokot S 8.6-50 Mg Tab PO 2 tab BIDPRN PRN Administration Constipation Tamsulosin HCl 0.4 mg 09/28/20 09:00 09/30/20 08:09 Tamsulosin Hcl 0.4 Mg Cap PO 0.4 mg DAILY MIKE Administration - Exam Neck: negative: supple, symmetric, no JVD, no thyromegaly, no lymphadenopathy, no carotid bruit, JVD Heart: negative: RRR, no murmur, no gallops, no rubs, normal peripheral pulses, irregular, diminshed peripheral pulses, murmur present, II/IV, III/IV Respiratory: negative: CTAB, no wheezes, no rales, no ronchi, normal chest expansion, no tachypnea, normal percussion, rales, rhonchi, tachypneic, wheezes Gastrointestinal: negative: soft, non-tender, non-distended, normal bowel sounds, no palpable masses, no hepatomegaly, no splenomegaly, no bruit, no guarding, no rigidity, tender to palpation, distended, diminished bowl sounds, voluntary guarding Hosp A/P (1) Bilateral pneumonia Code(s): J18.9 - PNEUMONIA, UNSPECIFIED ORGANISM Status: Acute (2) Anxiety and depression Code(s): F41.9 - ANXIETY DISORDER, UNSPECIFIED; F32.9 - MAJOR DEPRESSIVE DISORDER, SINGLE EPISODE, UNSPECIFIED Status: Chronic (3) BPH (benign prostatic hypertrophy) Code(s): N40.0 - BENIGN PROSTATIC HYPERPLASIA WITHOUT LOWER URINRY TRACT SYMP Status: Chronic (4) Cervical radiculopathy Code(s): M54.12 - RADICULOPATHY, CERVICAL REGION Status: Chronic (5) GERD (gastroesophageal reflux disease) Code(s): K21.9 - GASTRO-ESOPHAGEAL REFLUX DISEASE WITHOUT ESOPHAGITIS Status: Chronic (6) Hepatitis C Code(s): B19.20 - UNSPECIFIED VIRAL HEPATITIS C WITHOUT HEPATIC COMA Status: Chronic - Plan pt's two covid test negative. will continue abx for pneumonia. His cta has high suspicious of covid. will get PT to evaluate pt. Pt on dvt ppx. 09/29 will check another coivd test and will give him one dose of lasix. Asked for records from [facility]. pt had gama placed at [facility]. will continue current abx. pt evaluated by speech no change in consistency. PT recommeded pt for rehab. will consult case resolution specialist. 09/30 patient had a run of PAT last night electrolytes checks they were normal. Patient currently off oxygen doing well. Will get infectious disease to see the patient since patient has had 3 - Covid test. Antibiotics changed yesterday to Levaquin.
--- NOTE | 2020-09-30 18:02 | CON ---
DATE OF CONSULTATION: 09/30/2020 REASON FOR CONSULTATION: Pneumonia. 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 At the time, he presented with dysuria, frequency, fever, and lower abdominal pain. On arrival to [facility] Emergency Room, a Fountain had to be placed and there was evidence of clots and gross hematuria, and continuous bladder irrigation was initiated in the emergency room. COVID test was negative and this was the fifth COVID test the patient had had in the past few months at [facility]. Patient was discharged on the , three days later with a Fountain catheter and he was prescribed cefdinir, lactobacillus, alprazolam, aspirin, budesonide, dutasteride, and tramadol. He was supposed to have a visit with the urologist for a voiding trial. Patient had a CT of abdomen and pelvis done close to discharge, which showed ground-glass opacities in the visualized right lung base. The patient then presented four days later to [facility]. He was in home and he lives in a [place] in [place]. He lives by himself. He developed dyspnea and some chest pain few days before. He came back to the emergency room at [facility], was sent over here and admitted. He still had a Fountain catheter in and temperature was 97.9, satting 99% on room air, BP was 111/65, and pulse rate 81. He is awake and oriented. Lungs are clear. Abdomen is soft. Here, he had a white cell count 2.4, hemoglobin 11, platelets 212, with lymphocytes 0.7 and 1.2; the creatinine is 0.75; CRP 3.35 and ferritin was normal at 167. Urinalysis with 0 to 3 wbc's. He had 3 COVID tests since admission and they were all negative. The microbiology at [facility] included negative sets of blood cultures. Urine culture was negative as well. Currently, Mr. Nelson is sitting by the bedside. He is asking to go home. He does not feel in any distress. No headaches. No shortness of breath anymore. No chest pain. No cough. No abdominal pain. Still has a Fountain catheter, but would like to see if it can be removed. No joint symptoms. PAST MEDICAL HISTORY: Includes ischemic cardiomyopathy, EF 45%; prior stenting; BPH, gross hematuria with obstruction, requiring Fountain catheterization and continuous bladder irrigation at [facility] recently. He has had thus far 8 negative COVID tests, 5 before admission and 3 after admission. The patient has had history of CKD, AFib, Aflutter, type 2 diabetes, and hypertension. There is a history of hepatitis C here, depression, prior myocardial infarction, obesity, obstructive sleep apnea, and history of pancreatitis. PAST SURGICAL HISTORY: Hernia repair; back surgery, L4-5 laminectomy; knee surgery; coronary angiogram with stents; spinal cord stimulator implant; tonsillectomy; perforated gastric ulcer. CURRENT MEDICATIONS: 1. Albuterol. 2. Alprazolam. 3. Baclofen. 4. Enoxaparin. 5. Pepcid. 6. Neurontin. 7. Hydrocodone. 8. Levofloxacin. 9. Tamsulosin. ALLERGIES: TIZANIDINE. FAMILY HISTORY: Noncontributory. PHYSICAL EXAMINATION: VITAL SIGNS: He has been afebrile in the hospital, BP 120/71, and he is satting 97 on room air. SKIN: Area of callus in the right heel and a few other areas of abrasion in the medial aspect of the left heel and medial aspect of the left knee after a fall. Anyways, he has a peripheral IV access and Fountain catheter. GENERAL: He is awake, alert, and oriented. Speaks in full sentences. No distress. Has a sense of humor. He is oriented. LYMPHATICS: No lymphadenopathy. HEENT: Ocular movements conjugate. Oral cavity with tobacco from chewing tobacco in his oral cavity, teeth with quite a bit of decay. NECK: Supple. No jugular vein distention. LUNGS: With fairly clear breath sounds. HEART: S1 and S2. Regular rate with a soft aortic murmur. No S4. ABDOMEN: Soft. Not distended or tender. No ascites. No bladder distention. EXTREMITIES: No joint inflammatory activity. Pulses 1+ in dorsalis pedis. He is able to move extremities on command. NEUROLOGIC: Nonfocal. LABORATORY STUDIES: He got 3 SARS-CoV negative PCRs here in the hospital. White cell count 9.3, hemoglobin 10.4, and platelets 232. Creatinine 0.81. Liver profile normal. Albumin 3.2. I do not think a BNP was done. Urinalysis with 0 to 3 wbc's. He had a chest CT done here on admission, which showed some ground-glass opacities, mostly in the upper lungs in the dependant areas. The anterior aspect of the lungs lower segments are clear, showed more in the upper segments. Two sets of blood cultures negative. Urine culture is negative for influenza as well. ASSESSMENT: 1. Ischemic cardiomyopathy, ejection fraction of 45%. 2. Recent admission with urinary obstruction requiring Fountain catheterization and continuous bladder irrigation with microscopic hematuria and clots, but negative cultures, both urine and blood. 3. Numerous negative COVID tests. 4. Abnormal findings on CT of chest, both here and at [place] and [place] with those ground-glass opacities. DISCUSSION: Patient has normal O2 saturations on room air. Evidently, ground-glass opacities are not specific for COVID. He lives by himself and does not have exposures, except for the hospital admission recently, but I think that his ground-glass opacities are due to pulmonary edema from his cardiomyopathy rather than COVID or other infectious disorder, so I will go ahead and stop antimicrobial therapy. Submit the COVID antibody test for completeness sake and consider discharge planning tomorrow. I would consider a voiding trial as well before he goes home. Job ID: [id number]
--- NOTE | 2020-10-01 04:59 | PDOC.EVN ---
Event Note - Event Note Event Note: Nursing called. Patient had asymptomatic, 16sec run AJR x 2 episodes. Will check lytes and get 12 lead EKG.
[2020-10-01 05:31] LABS: #Lymphocytes 1.5 thou/uL (1.20-3.40); #Monocytes 0.4 thou/uL (0.11-0.59); #Neutrophils 1.8 thou/uL (1.40-6.50); %Basophils 0.3 % (0.0-1.0); %Eosinophils 1.2 % (0.0-10.0); %Lymphocytes 40.5 % (21.0-51.0); %Monocytes 9.6 % (0.0-10.0); %Neutrophils 48.4 % (42.0-75.0); Hemoglobin 10.3 g/dL (14.0-18.0); Mean Corpuscular HGB CONC 32.7 g/dL (32.0-36.0); Mean Corpuscular Hemoglobin 29.9 pg (27.0-31.0); Mean Corpuscular Volume 91.4 fL (78.0-98.0); Mean Platelet Volume 7.4 fL (7.4-10.4); Platelet Count 227 thou/uL (130-400); Red Blood Cell (RBC) Count 3.45 mill/uL (4.70-6.10); White Blood Cell (WBC) Count 3.7 thou/uL (4.8-10.8)
[2020-10-01 05:51] LABS: Anion Gap 15 mmol/L (10-20); BUN (Urea Nitrogen) 16 mg/dL (8.4-25.7); Calc. Creatinine Clearance 135 mL/min (70-130); Calcium 8.4 mg/dL (7.8-10.44); Carbon Dioxide 21 mmol/L (23-31); Chloride 109 mmol/L (98-107); Glucose 179 mg/dL (80-115); Magnesium 1.8 mg/dL (1.6-2.6); Potassium 3.3 mmol/L (3.5-5.1); Sodium 142 mmol/L (136-145)
[2020-10-01] MEDS: HYDROcodone/Acetaminophen 5/325 mg Tablet PO PRN ×4 (06:47→21:46)
[2020-10-01] MEDS ORDERED: Furosemide 20 MG/2 ML VIAL SLOW IVP SCH (08:30)
[2020-10-01] MEDS ORDERED: Potassium Chloride 20 MEQ TAB PO SCH (08:30)
[2020-10-01] MEDS: Tamsulosin HCl 0.4 MG CAP PO SCH (08:43)
[2020-10-01] MEDS: Enoxaparin Sodium 40 MG/0.4 ML SYRINGE SC SCH (08:43)
[2020-10-01] MEDS: Famotidine 20 MG TAB PO SCH ×2 (08:43→21:46)
[2020-10-01] MEDS: Gabapentin 300 MG CAP PO SCH (08:47)
[2020-10-01] MEDS: ALPRAZolam 1 MG TAB PO PRN ×2 (10:41→14:06)
[2020-10-01 13:06] LABS: SARS-CoV-2 IgG Ab Reactive (NonReactive); SARS-CoV-2 IgG Index 7.59 S/CO (< 1.40)
--- NOTE | 2020-10-01 16:53 | PDOC.HOSPP ---
- Subjective Encounter Date: 10/01/20 Encounter Time: 10:30 Subjective: Patient up in bed no complaints. - Objective Vital Signs & Weight: Vital Signs (12 hours) Temp Pulse Pulse Pulse Resp BP BP 10/01/20 15:45 96.4 F L 94 10/01/20 11:32 98.3 F 82 20 10/01/20 09:32 109 H 72 141/89 H 139/73 10/01/20 08:55 98.7 F 85 10/01/20 08:50 BP Pulse Ox Pulse Ox Pulse Ox 10/01/20 15:45 137/78 100 10/01/20 11:32 123/70 96 10/01/20 09:32 100 96 10/01/20 08:55 147/81 H 94 L 10/01/20 08:50 94 L Weight Weight 230 lb 1.6 oz I&O: 09/30/20 10/01/20 10/02/20 06:59 06:59 06:59 Intake Total 720 Output Total 2250 1100 Balance -1530 -1100 Result Diagrams: 10/01/20 05:10 10/01/20 05:10 Hospitalist ROS - Review of Systems Respiratory: denies: cough, dry, shortness of breath, hemoptysis, SOB with excertion, pleuritic pain, sputum, wheezing, other Cardiovascular: denies: chest pain, palpitations, orthopnea, paroxysmal noc. dyspnea, edema, light headedness, other Gastrointestinal: denies: nausea, vomiting, abdominal pain, diarrhea, constipation, melena, hematochezia, other - Medication Medications: Active Medications Generic Name Dose Route Start Last Admin Trade Name Umbertoq PRN Reason Stop Dose Admin Acetaminophen 650 mg 09/27/20 16:05 09/28/20 04:31 Acetaminophen 325 Mg Tab PO 650 mg Q6H PRN Administration Headache/Fever/Mild Pain (1-3) Hydrocodone Bitart/Acetaminophen 1 tab 09/28/20 23:43 09/29/20 17:38 Hydrocodone/Acetaminophen 5/325 Mg Tablet PO 1 tab Q4H PRN Administration Moderate Pain (4-6) Hydrocodone Bitart/Acetaminophen 2 tab 09/28/20 23:43 10/01/20 10:47 Hydrocodone/Acetaminophen 5/325 Mg Tablet PO 2 tab Q4H PRN Administration Severe Pain (7-10) Alprazolam 2 mg 09/28/20 03:54 10/01/20 14:06 Alprazolam 1 Mg Tab PO 2 mg TIDPRN PRN Administration ANXIETY Enoxaparin Sodium 40 mg 09/29/20 09:00 10/01/20 08:43 Enoxaparin Sodium 40 Mg/0.4 Ml Syringe SC 40 mg DAILY MIKE Administration Famotidine 20 mg 09/27/20 21:00 10/01/20 08:43 Famotidine 20 Mg Tab PO 20 mg BID MIKE Administration Gabapentin 300 mg 09/28/20 09:00 10/01/20 08:47 Gabapentin 300 Mg Cap PO 300 mg DAILY MIKE Administration Mometasone Furoate/Formoterol Fumar 2 puff 09/27/20 18:30 09/30/20 18:38 Mometasone 200 Mcg/Formoterol 5 Mcg 120 Puff Inhaler INH 2 puff BID-RT MIKE Administration Senna/Docusate Sodium 2 tab 09/27/20 16:05 09/28/20 23:56 Senokot S 8.6-50 Mg Tab PO 2 tab BIDPRN PRN Administration Constipation Tamsulosin HCl 0.4 mg 09/28/20 09:00 10/01/20 08:43 Tamsulosin Hcl 0.4 Mg Cap PO 0.4 mg DAILY MIKE Administration - Exam Heart: negative: RRR, no murmur, no gallops, no rubs, normal peripheral pulses, irregular, diminshed peripheral pulses, murmur present, II/IV, III/IV Respiratory: negative: CTAB, no wheezes, no rales, no ronchi, normal chest expansion, no tachypnea, normal percussion, rales, rhonchi, tachypneic, wheezes Gastrointestinal: negative: soft, non-tender, non-distended, normal bowel sounds, no palpable masses, no hepatomegaly, no splenomegaly, no bruit, no guarding, no rigidity, tender to palpation, distended, diminished bowl sounds, voluntary guarding Extremities: 1+ LE edema Hosp A/P (1) Bilateral pneumonia Code(s): J18.9 - PNEUMONIA, UNSPECIFIED ORGANISM Status: Acute (2) Anxiety and depression Code(s): F41.9 - ANXIETY DISORDER, UNSPECIFIED; F32.9 - MAJOR DEPRESSIVE DISORDER, SINGLE EPISODE, UNSPECIFIED Status: Chronic (3) BPH (benign prostatic hypertrophy) Code(s): N40.0 - BENIGN PROSTATIC HYPERPLASIA WITHOUT LOWER URINRY TRACT SYMP Status: Chronic (4) Cervical radiculopathy Code(s): M54.12 - RADICULOPATHY, CERVICAL REGION Status: Chronic (5) GERD (gastroesophageal reflux disease) Code(s): K21.9 - GASTRO-ESOPHAGEAL REFLUX DISEASE WITHOUT ESOPHAGITIS Status: Chronic (6) Hepatitis C Code(s): B19.20 - UNSPECIFIED VIRAL HEPATITIS C WITHOUT HEPATIC COMA Status: Chronic (7) Arrhythmia Code(s): I49.9 - CARDIAC ARRHYTHMIA, UNSPECIFIED Status: Acute - Plan pt's two covid test negative. will continue abx for pneumonia. His cta has high suspicious of covid. will get PT to evaluate pt. Pt on dvt ppx. 09/29 will check another coivd test and will give him one dose of lasix. Asked for records from [facility]. pt had gama placed at [facility]. will continue current abx. pt evaluated by speech no change in consistency. PT recommeded pt for rehab. will consult immigration case manager. 09/30 patient had a run of PAT last night electrolytes checks they were normal. Patient currently off oxygen doing well. Will get infectious disease to see the patient since patient has had 3 - Covid test. Antibiotics changed yesterday to Levaquin. 10/01 patient's antibiotics have been discontinued. He continues to have s ignificant arrhythmia on the monitor we will replace the potassium back is stable we will get cardiology to see the patient. Patient wants to go to [facility] will consult for inpatient rehabilitation. Patient's antibody is positive most likely patient had Covid.
[2020-10-01] MEDS: Mometasone 200 MCG/Formoterol 5 MCG 120 PUFF INHALER INH SCH ×2 (18:50→21:42)
[2020-10-02] MEDS: Mometasone 200 MCG/Formoterol 5 MCG 120 PUFF INHALER INH SCH ×2 (05:15→18:36)
[2020-10-02] MEDS: HYDROcodone/Acetaminophen 5/325 mg Tablet PO PRN ×4 (08:47→23:18)
[2020-10-02] MEDS: Famotidine 20 MG TAB PO SCH ×2 (08:48→20:53)
[2020-10-02] MEDS: Gabapentin 300 MG CAP PO SCH (08:48)
[2020-10-02] MEDS: Enoxaparin Sodium 40 MG/0.4 ML SYRINGE SC SCH (08:49)
[2020-10-02] MEDS: Tamsulosin HCl 0.4 MG CAP PO SCH (08:49)
[2020-10-02] MEDS: ALPRAZolam 1 MG TAB PO PRN ×2 (12:24→20:53)
--- NOTE | 2020-10-02 15:34 | PRG ---
DATE OF SERVICE: 10/02/2020 SUBJECTIVE: Does not have any major symptoms, specifically no dyspnea or chest pain. No hemoptysis or cough. No abdominal pain or diarrhea. He is saturating 95% to 97% on room air. OBJECTIVE: VITAL SIGNS: He is afebrile. pulse 84 to 92, BP 140/84. LUNGS: Symmetric air entry. HEART: S1, S2, regular rate. ABDOMEN: Soft, not distended or tender. No ascites. No bladder distention. He had some arrhythmias and Dr. Rodriguez was consulted. White cell count 3.7, hemoglobin 10.3, creatinine 0.75. CRP is 1 and ferritin 167. Interestingly, his SARS-CoV2 IgG antibody was 7.59 index which was clearly reactive. ASSESSMENT AND DISCUSSION: Ischemic cardiomyopathy with EF 45%, recent admission with urinary obstruction requiring Fountain catheterization and continuing bladder irrigation with macroscopic hematuria and clots, but negative cultures and then 8 negative COVID tests for PCR, but one positive antibody test with abnormal findings on CT consistent with COVID infection. So this is a kind of extreme example of patients who have negative COVID PCRs from the nasopharynx and still have evidence of COVID infection; in this case, both the CT appearance as well as the antibody titers. He is not infectious anymore and isolation precautions can be discontinued. Discharge planning according to his cardiac evaluation. Voiding trial recommended before discharge. Job ID: [id number]
--- NOTE | 2020-10-02 17:08 | PDOC.HOSPP ---
- Subjective Encounter Date: 10/02/20 Encounter Time: 10:30 Subjective: Patient up in bed no complaints. - Objective Vital Signs & Weight: Vital Signs (12 hours) Temp Pulse Resp BP Pulse Ox 10/02/20 12:25 98.2 F 92 18 147/84 H 95 10/02/20 08:48 98.6 F 84 16 159/78 H 97 10/02/20 05:15 97.7 F 72 16 138/67 100 Weight Weight 226 lb 14.4 oz I&O: 10/01/20 10/02/20 10/03/20 06:59 06:59 06:59 Intake Total 720 1300 800 Output Total 2250 1700 250 Balance -1530 -400 550 Result Diagrams: 10/01/20 05:10 10/01/20 05:10 Hospitalist ROS - Review of Systems Cardiovascular: denies: chest pain, palpitations, orthopnea, paroxysmal noc. dyspnea, edema, light headedness, other Gastrointestinal: denies: nausea, vomiting, abdominal pain, diarrhea, constipation, melena, hematochezia, other Genitourinary: denies: dysuria, frequency, incontinence, hematuria, retention, other - Medication Medications: Active Medications Generic Name Dose Route Start Last Admin Trade Name Freq PRN Reason Stop Dose Admin Acetaminophen 650 mg 09/27/20 16:05 09/28/20 04:31 Acetaminophen 325 Mg Tab PO 650 mg Q6H PRN Administration Headache/Fever/Mild Pain (1-3) Hydrocodone Bitart/Acetaminophen 1 tab 09/28/20 23:43 09/29/20 17:38 Hydrocodone/Acetaminophen 5/325 Mg Tablet PO 1 tab Q4H PRN Administration Moderate Pain (4-6) Hydrocodone Bitart/Acetaminophen 2 tab 09/28/20 23:43 10/02/20 13:53 Hydrocodone/Acetaminophen 5/325 Mg Tablet PO 2 tab Q4H PRN Administration Severe Pain (7-10) Alprazolam 2 mg 09/28/20 03:54 10/02/20 12:24 Alprazolam 1 Mg Tab PO 2 mg TIDPRN PRN Administration ANXIETY Enoxaparin Sodium 40 mg 09/29/20 09:00 10/02/20 08:49 Enoxaparin Sodium 40 Mg/0.4 Ml Syringe SC 40 mg DAILY MIKE Administration Famotidine 20 mg 09/27/20 21:00 10/02/20 08:48 Famotidine 20 Mg Tab PO 20 mg BID MIKE Administration Gabapentin 300 mg 09/28/20 09:00 10/02/20 08:48 Gabapentin 300 Mg Cap PO 300 mg DAILY MIKE Administration Mometasone Furoate/Formoterol Fumar 2 puff 09/27/20 18:30 10/02/20 05:15 Mometasone 200 Mcg/Formoterol 5 Mcg 120 Puff Inhaler INH Not Given BID-RT MIKE Senna/Docusate Sodium 2 tab 09/27/20 16:05 09/28/20 23:56 Senokot S 8.6-50 Mg Tab PO 2 tab BIDPRN PRN Administration Constipation Tamsulosin HCl 0.4 mg 09/28/20 09:00 10/02/20 08:49 Tamsulosin Hcl 0.4 Mg Cap PO 0.4 mg DAILY MIKE Administration - Exam Neck: negative: supple, symmetric, no JVD, no thyromegaly, no lymphadenopathy, no carotid bruit, JVD Heart: negative: RRR, no murmur, no gallops, no rubs, normal peripheral pulses, irregular, diminshed peripheral pulses, murmur present, II/IV, III/IV Respiratory: negative: CTAB, no wheezes, no rales, no ronchi, normal chest expansion, no tachypnea, normal percussion, rales, rhonchi, tachypneic, wheezes Gastrointestinal: negative: soft, non-tender, non-distended, normal bowel sounds, no palpable masses, no hepatomegaly, no splenomegaly, no bruit, no guarding, no rigidity, tender to palpation, distended, diminished bowl sounds, voluntary guarding Hosp A/P (1) Bilateral pneumonia Code(s): J18.9 - PNEUMONIA, UNSPECIFIED ORGANISM Status: Acute (2) Anxiety and depression Code(s): F41.9 - ANXIETY DISORDER, UNSPECIFIED; F32.9 - MAJOR DEPRESSIVE DISORDER, SINGLE EPISODE, UNSPECIFIED Status: Chronic (3) BPH (benign prostatic hypertrophy) Code(s): N40.0 - BENIGN PROSTATIC HYPERPLASIA WITHOUT LOWER URINRY TRACT SYMP Status: Chronic (4) Cervical radiculopathy Code(s): M54.12 - RADICULOPATHY, CERVICAL REGION Status: Chronic (5) GERD (gastroesophageal reflux disease) Code(s): K21.9 - GASTRO-ESOPHAGEAL REFLUX DISEASE WITHOUT ESOPHAGITIS Status: Chronic (6) Hepatitis C Code(s): B19.20 - UNSPECIFIED VIRAL HEPATITIS C WITHOUT HEPATIC COMA Status: Chronic (7) Arrhythmia Code(s): I49.9 - CARDIAC ARRHYTHMIA, UNSPECIFIED Status: Acute - Plan pt's two covid test negative. will continue abx for pneumonia. His cta has high suspicious of covid. will get PT to evaluate pt. Pt on dvt ppx. 09/29 will check another coivd test and will give him one dose of lasix. Asked for records from [facility]. pt had gama placed at [facility]. will continue current abx. pt evaluated by speech no change in consistency. PT recommeded pt for rehab. will consult rehabilitation caseworker. 09/30 patient had a run of PAT last night electrolytes checks they were normal. Patient currently off oxygen doing well. Will get infectious disease to see the patient since patient has had 3 - Covid test. Antibiotics changed yesterday to Levaquin. 10/01 patient's antibiotics have been discontinued. He continues to have significant arrhythmia on the monitor we will replace the potassium back is stable we will get cardiology to see the patient. Patient wants to go to [facility] will consult for inpatient rehabilitation. Patient's antibody is positive most likely patient had Covid. 10/02 cardiology to evaluate patient. Antibodies positive for Covid. Isolation has been discontinued. Patient wants to go to [facility] rehab. We will try and remove Gama catheter. Patient was on aspirin which was held due to hematuria at [facility]. He has been put on aspirin per cardiology will continue.
[2020-10-02] MEDS: Carvedilol 3.125 MG TAB PO SCH (18:35)
--- NOTE | 2020-10-02 18:37 | CON ---
DATE OF CONSULTATION: 10/02/2020 INDICATION FOR CONSULTATION: A 70-year-old patient with multiple medical problems, who was admitted with possible COVID and actually was diagnosed as already having some antibodies and most likely already suffered COVID infection. He was admitted due to multiple falls and complaining of weakness. We were asked to see him due to some history of an arrhythmias with short episodes of atrial fibrillation also accelerated junctional rhythm. HISTORY OF PRESENT ILLNESS: This is a very unfortunate 70-year-old gentleman, has an extensive past medical history including extensive cardiac history. He recently was seen at [facility], I believe last year and underwent angioplasty and stent placement. He has three-vessel coronary artery disease. He has also had some peripheral vascular disease. His last cardiac catheterization that I can determine shows a left main of 0%, LAD was 70% mid, he had ostial diagonal of 70%, the circumflex also had mild disease, right coronary artery had 20% disease. He underwent angioplasty and stent placement to the LAD and diagonal branch with a 3.5 x 16 mm Synergy drug-eluting stent to the mid left anterior descending artery and a 2.5 x 8 mm stent, also a drug-eluting stent to the ostium of first diagonal branch. What I can determine, this was performed in February of 2019 more than 12 months ago. He did have an unremarkable nuclear study apparently in July of 2019, which showed no evidence of ischemia. He had complained of some chest pain in May of 2020 and had negative cardiac enzymes. He was stabilized on medical management and was discharged home. Unfortunately, he apparently is noncompliant with his medications. He has chronic diabetes. He has not been taking his medications appropriately. He denied any chest pain. Prior to undergoing the stent placement, he has had some chest discomfort, in which underwent stress testing and does ended up with stents. At this time, we are seeing him due to the arrhythmias. I believe he has also had arrhythmias in the past. He has been seen by Dr. Albright at [facility] and has undergone a possible ablation, this is for atrial flutter. He also had some episodes of atrial fibrillation in the past. At this time, he continued to have short episodes of atrial fibrillation, was noted on the monitor also accelerated junctional rhythm, but he denied any symptoms associated with this. PAST MEDICAL HISTORY: Significant for coronary artery disease, angioplasty, stent placement, atrial fibrillation, and atrial flutter. He has undergone a flutter ablation. He has a history of anxiety. He also has a history of asthma apparently. He has a history of benign prostatic hypertrophy. He has had history of congestive heart failure in the past and he has a combination of systolic as well as diastolic heart failure. His most recent ejection fraction in May of 2020 was estimated 45% ejection fraction and apparently also had diastolic dysfunction. He has chronic kidney disease, chronic pain syndrome, history of diabetes, hypertension, and gastroesophageal reflux disease. He has had pneumonias in the past. He had hepatitis C. History of major depression. He has also had some history of myocardial infarction in the past, which is ST-segment elevation myocardial infarction. He has a history of obstructive sleep apnea. He has had a history of pancreatitis. He has had a history of a right bundle-branch block for quite some time. He has some problems with sensorineural hearing loss. He has sleep apnea and he has had a history of tobacco abuse in the form of using chewing tobacco. He has had some abdominal surgery. He has had back surgery. He has a hernia repair. He has had an indwelling catheter was placed. He has had knee surgery, some type. He has had a spinal cord stimulator implant. He has had right shoulder surgery. He has had perforated ulcer, which underwent repair with a Thai patch. He has had a tonsillectomy. FAMILY HISTORY: Positive for multiple medical problems, also with coronary artery disease as well as asthma, cancer, and arthritis. ALLERGIES: HE IS ALLERGIC TO TIZANIDINE. SOCIAL HISTORY: Apparently he lives alone. He does not use any alcohol. He uses tobacco products, but does not smoke. He has never smoked according to the records and he says he does not smoke. REVIEW OF SYSTEMS: Please refer to the notes already dictated by the Primary Care Service, but according to me, he did not have any other significant complaints at this time. He actually wanting to go home. He does have multiple complaints from his pain, but says that the pain stimulator has completely resolved those problems, which he previously had a chronic pain syndrome. MEDICATIONS: At this time include; 1. Lovenox 40 mg daily. 2. Pepcid 20 mg b.i.d. 3. Neurontin 300 mg once a day. 4. He is on Flomax. 5. He is also on inhalers. 6. He has been on Tylenol p.r.n. 7. He is on a Ventolin inhaler. 8. Alprazolam. 9. He is on baclofen. 10. Hydrocodone. 11. Zofran. 12. But, at this time he is not on any other cardiac medications. 13. He is not on any diuretics. 14. No beta blockers. 15. No CAN inhibitors. 16. Also not on any oral anticoagulations or antiplatelet medications. Uncertain as to how long he was on antiplatelet medications as far as his stents were concerned, but does not appear that he is on any of these medications at this time. DIAGNOSTIC STUDIES: His EKG on admission showed a normal sinus rhythm with what appeared to be an incomplete right bundle branch block, evidence of possible old inferior myocardial infarction. He recently then developed episodes of junctional rhythm and was actually accelerated junctional rhythm. He continues to have a right bundle branch block. He has also had short episodes of atrial fibrillation. LABORATORY DATA: As of yesterday; sodium was 142, potassium was 3.3, chloride was 109, bicarb was 21, his blood sugars 179, BUN was 16, and creatinine was 0.75. WBC was 3.7, hemoglobin 10.3, hematocrit 31.5, and platelet count was 227,000. I do not see that any cardiac enzymes have been taken in this patient except I believe on the very first admission on 09/27, he did have a troponin I of 0.036 and subsequently that he has had an elevated cardiac enzymes since 2015, he had a slight elevation of cardiac enzyme at 0.07 and again in 2020, in June, he had a troponin I of 0.05 and at this time, it is 0.036. Previous to that, he did not have any elevation of the cardiac enzymes since October of 2014 up until February of 2016, cardiac enzymes were unremarkable on various different draws. His BNP on admission was 129, not indicative of congestive heart failure. IMPRESSION AND PLAN: 1. Arrhythmias in a patient with multiple medical problems, who has had COVID pneumonia apparently or at least infected with COVID. Arrhythmias would not be unusual in this population. He also has had some history of arrhythmias in the past, for which he has undergone ablation by Dr. Albright at [facility]. At this time, he is not on beta maritza or any other antiarrhythmic medications. According to the records, a history of asthma, but when I spoke to the patient, he said that he did not have any history of asthma in the past and certainly, we can try a low-dose of beta maritza to see whether or not this may control some of the arrhythmias, but with an accelerated junctional rhythm. The AV becomes bradycardic, he may actually have underlying tachy-romie syndrome or sick sinus syndrome and eventually may need to undergo pacemaker insertion. Otherwise, he appears to be stable and asymptomatic with the arrhythmia. He is not on any oral anticoagulation and this certainly is something that we would need to consider in this patient, who has had this one episode of some atrial fibrillation. 2. History of atrial flutter, which has been ablated in the past. I see no indication the patient has any further atrial flutter. 3. Short episode of atrial fibrillation. We will need to consider oral anticoagulation in the form of Xarelto or Eliquis or Pradaxa should he have further episodes of atrial fibrillation. We will also could consider having electrophysiological evaluation. 4. History of coronary artery disease, angioplasty and stent placement. This appears to be relatively stable at this time. He denies any chest pain. There is no indication on the EKG that he has any ischemic changes and there have been no significant enzyme elevations. He did have one on the , but there has been no repeat enzymes obtained. For his other multiple medical problems, these will be dealt with by the Primary Care Service. As noted above in his past medical history, he does have multiple medical problems. At this time, I will try a very low dose of a beta-maritza, I did not see whether or not he tolerates this. His last echocardiogram that I can determine was back in 2016 in this hospital. It is unlikely that we will repeat the echocardiogram at this time since he is relatively asymptomatic. No indication that he has any congestive heart failure symptoms and no chest pain and so this can be done as an outpatient if necessary once he is discharged to home or he can follow with [facility] as they have had his previous echocardiograms in the past. We will be more than happy to continue to follow the patient with you throughout this hospitalization. I will put him on a low dose of beta maritza and see whether or not he tolerates this and see whether or not the rhythms stabilize. Job ID: [id number]
[2020-10-03] MEDS: Mometasone 200 MCG/Formoterol 5 MCG 120 PUFF INHALER INH SCH ×2 (05:30→18:43)
[2020-10-03] MEDS: Famotidine 20 MG TAB PO SCH (07:48)
[2020-10-03] MEDS: ALPRAZolam 1 MG TAB PO PRN ×2 (07:48→16:21)
[2020-10-03] MEDS: Tamsulosin HCl 0.4 MG CAP PO SCH (07:49)
[2020-10-03] MEDS: Gabapentin 300 MG CAP PO SCH (07:49)
[2020-10-03] MEDS: Enoxaparin Sodium 40 MG/0.4 ML SYRINGE SC SCH (07:50)
[2020-10-03] MEDS: Carvedilol 3.125 MG TAB PO SCH ×2 (07:50→16:21)
[2020-10-03] MEDS ORDERED: Lisinopril 5 MG TAB PO SCH (09:00)
[2020-10-03] MEDS ORDERED: Aspirin 81 mg Enteric Coated Tablet PO SCH (09:00)
[2020-10-03] MEDS: HYDROcodone/Acetaminophen 5/325 mg Tablet PO PRN ×3 (09:52→18:42)
--- NOTE | 2020-10-03 13:18 | PDOC.CPN ---
- Subjective Date: 10/03/20 Time: 12:45 Interval history: No overnight events, no arrhythmias noted on telemetry records overnight. He remains in SR HR 60'-70's during exam today. He denies chest pain, shortness of breath, palpitations, dizziness. He has no new complaints today. - Review of Systems General: denies: fever/chills, weight/appetite/sleep changes, night sweats, fatigue Respiratory: denies: cough, congestion, shortness of breath, exercise intolerance Cardiovascular: denies: chest pain, palpitation, edema, paroxysmal nocturnal dyspnea, orthopnea Gastrointestinal: denies: nausea, vomiting, diarrhea, constipation, abd pain, GI bleeding Musculoskeletal: denies: pain, tenderness, stiffness, swelling, arthritis/arthralgias Neurological: denies: numbness, syncope, seizure, weakness - Objective Allergies/Adverse Reactions: Allergies Allergy/AdvReac Type Severity Reaction Status Date / Time tizanidine Allergy Verified 09/27/20 23:27 Visit Medications: Current Medications Acetaminophen (Acetaminophen 325 Mg Tab) 650 mg PO Q6H PRN PRN Reason: Headache/Fever/Mild Pain (1-3) Last Admin: 09/28/20 04:31 Dose: 650 mg Documented by: Hydrocodone Bitart/Acetaminophen (Hydrocodone/Acetaminophen 5/325 Mg Tablet) 1 tab PO Q4H PRN PRN Reason: Moderate Pain (4-6) Last Admin: 09/29/20 17:38 Dose: 1 tab Documented by: Hydrocodone Bitart/Acetaminophen (Hydrocodone/Acetaminophen 5/325 Mg Tablet) 2 tab PO Q4H PRN PRN Reason: Severe Pain (7-10) Last Admin: 10/03/20 09:52 Dose: 2 tab Documented by: Albuterol Sulfate (Albuterol 200 Puff (6.7gm Inhaler)) 2 puff INH Q6H PRN PRN Reason: SOB &/or Wheezing Alprazolam (Alprazolam 1 Mg Tab) 2 mg PO TIDPRN PRN PRN Reason: ANXIETY Last Admin: 10/03/20 07:48 Dose: 2 mg Documented by: Aspirin (Aspirin 81 Mg Enteric Coated Tablet) 81 mg PO DAILY MIKE Last Admin: 10/03/20 07:49 Dose: 81 mg Documented by: Atorvastatin Calcium (Atorvastatin Calcium 40 Mg Tab) 40 mg PO HS [facility] Baclofen (Baclofen 10 Mg Tab) 10 mg PO BIDPRN PRN PRN Reason: Hiccups Carvedilol (Carvedilol 3.125 Mg Tab) 3.125 mg PO BID-WM [facility] Last Admin: 10/03/20 07:50 Dose: 3.125 mg Documented by: Enoxaparin Sodium (Enoxaparin Sodium 40 Mg/0.4 Ml Syringe) 40 mg SC DAILY [facility] Last Admin: 10/03/20 07:50 Dose: 40 mg Documented by: Famotidine (Famotidine 20 Mg Tab) 20 mg PO BID [facility] Last Admin: 10/03/20 07:48 Dose: 20 mg Documented by: Gabapentin (Gabapentin 300 Mg Cap) 300 mg PO DAILY [facility] Last Admin: 10/03/20 07:49 Dose: 300 mg Documented by: Lisinopril (Lisinopril 5 Mg Tab) 5 mg PO DAILY [facility] Last Admin: 10/03/20 07:49 Dose: 5 mg Documented by: Mometasone Furoate/Formoterol Fumar (Mometasone 200 Mcg/Formoterol 5 Mcg 120 Puff Inhaler) 2 puff INH BID-RT [facility] Last Admin: 10/03/20 05:30 Dose: 2 puff Documented by: Ondansetron HCl (Ondansetron Pf 4 Mg/2 Ml Vial) 4 mg IVP Q6H PRN PRN Reason: Nausea/Vomiting Senna/Docusate Sodium (Senokot S 8.6-50 Mg Tab) 2 tab PO BIDPRN PRN PRN Reason: Constipation Last Admin: 09/28/20 23:56 Dose: 2 tab Documented by: Tamsulosin HCl (Tamsulosin Hcl 0.4 Mg Cap) 0.4 mg PO DAILY [facility] Last Admin: 10/03/20 07:49 Dose: 0.4 mg Documented by: Vital Signs & Weight: Vital Signs Temp Pulse Resp BP Pulse Ox 10/03/20 11:15 98.1 F 70 18 122/65 95 10/03/20 07:54 96.9 F L 72 18 138/69 94 L 10/03/20 04:00 97.7 F 66 18 132/79 95 Weight 226 lb 14.4 oz - Physical Exam General: alert & oriented x3, no apparent distress HEENT: mucus membranes moist Neck: supple neck, no masses, no bruit Cardiac: regular rate and rhythm, no murmur Lungs: clear to auscultation, normal breath sounds, no wheeze, rales, rhonchi Neuro: grossly intact, motor function intact Abdomen: soft, non-tender Extremities: no cyanosis, no clubbing, no edema, 2+ Posterior Tibial, 2+ Dorsalis Pedus Skin: other (scattered bruising throughout bilateral arms) Musculoskeletal: normal range of motion - Labs Result Diagrams: 10/01/20 05:10 10/01/20 05:10 - EKG Interpretation EKG Method: Telemetry EKG: sinus rhythm (SR with BBB Hr maintaining 60's-70's today) - Assessment/Plan Assessment/Plan: 1. Arrhythmias and episodes of atrial fibrillation: no arrythmias present over night, patient did have some short episodes of atrial fibrillation and and accelerated junctional rhythm. He has denied any symptom associated with this. He has undergone an ablation in the past for atrial flutter. We have started him on low-dose beta blockers, he seems to be tolerating this well for now. Consider OAC, but per records patient was recently dc'd on Aspirin d/t hematuria at [facility]. The patient did not mention or recall this, but I will try and find records and the cause of hematuria before starting on OAC for episodes of atrial fibrillation. We will continue to monitor for further episodes of atrial fibrillation. Will consider EP consultation if further episodes occur. 2. Coronary artery disease: He appears to be stable at this time. He has stent placement to the LAD and diagonal branch with a 3.5 x 16 mm Synergy drug eluting stent to the mid LAD and a 2.5 x 8mm STEW to the ostium of first diagonal branch in February 2019. He is not currently on Plavix. He did have a normal nuclear study in July 2019 which showed no evidence of ischemia. There has been no evidence on the EKG indicating ischemic changes. He has denied any chest pain, dizziness, AUGUSTIN, shortness of breath, LE edema. 3. Pneumonia: managed by primary care services, denies chest pain or shortness of breath, he has COVID-19 antibodies. plans to go to [facility] Pt. seen and eval. by me. I agree with the A/P by the COMM[employer]. No c/o's. Chest clear. CV: regular at this time. 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 yon
--- NOTE | 2020-10-03 18:15 | PRG ---
DATE OF SERVICE: 10/03/2020 SUBJECTIVE: The patient is awake, in no distress. His breathing is okay. He does not have dyspnea at rest. No coughing either. No abdominal pain. Voiding without difficulty. He walks without limitations. OBJECTIVE: VITAL SIGNS: He has been afebrile, O2 saturations are 95% on room air, pulse 89. LUNGS: Clear. HEART: S1 and S2. Regular rate. ABDOMEN: Soft, not distended or tender. No ascites. No bladder distention. ASSESSMENT: Ischemic cardiomyopathy, ejection fraction 45%. Eight negative COVID tests, but then one positive antibody test. He probably had COVID, but now is resolved, in the aftermath of this infection. It looks like a voiding trial was successful. Job ID: [id number] [facility]
[2020-10-03 18:34] VITALS: BP 127/60; TEMP 97.4
[2020-10-03] MEDS ORDERED: Atorvastatin Calcium 40 MG TAB PO SCH (21:00)
--- NOTE | 2020-10-04 08:40 | PDOC.DS.DS ---
Provider - Provider Date of Admission: 09/27/20 16:19 Date of Discharge: 10/03/20 Admitting Provider: Tiffany Kidd MD Consultations: Cardiology, Infectious Disease Primary Care Physician: Isrrael Covington DO Course - Hospital Course Hospital Course: Patient is a 70-year-old male who initially presented to the hospital with shortness of breath. He was recently has gotten white and was treated for hematuria by inserting a Fountain catheter. He was supposed to follow-up with urology however he did not do so. He has a history of CAD status post stents and A. fib. Patient at this time was tested for Covid 3 times it was negative. He was also tested for antibodies which were positive. Infectious disease was consulted. Recommended to stop antibiotics which we were treating for pneumonia based off the CT findings. He was also given a few doses of diuretics which improved his shortness of breath. He does have chronic right shoulder pain. Patient is very noncompliant and does not know what medications he takes. The medication list from [facility] was updated. Initially his Plavix was held due to hematuria. However given his arrhythmia while he was in the hospital cardiology was consulted and there was a mention of a burst of atrial fibrillation while he was in the hospital. Given his risk factors he was started on Eliquis 5 mg twice a day and aspirin 81 mg daily. We will continue to monitor him and if he continues to have hematuria may consider stopping the Eliquis. Patient currently is off the oxygen he will follow up with cardiology who is Dr. Albright. He will also follow-up with urology as needed. He was seen by cardiology and was started on a beta-maritza and was watched overnight with no arrhythmia noted on the monitor. Resuscitation Status: 09/27/20 16:05 Resuscitation Status Routine Resuscitation Status: FULL: Full Resuscitation - Labs Lab Results: 10/01/20 05:10 10/01/20 05:10 Microbiology - Entire Visit 09/27/20 15:42 Nasal swab Influenza Types A,B Direct EIA - Final Additional comments: CTA IMPRESSION: 1. Moderately severe bilateral lower lobe and upper lobe infiltrates representing pneumonia. 2. No pulmonary thromboembolism. - Physical Exam Vitals: Weight Weight 226 lb 14.4 oz Physical Exam: The patient was seen and examined on the day of discharge. Problem - Problem (1) Bilateral pneumonia Code(s): J18.9 - PNEUMONIA, UNSPECIFIED ORGANISM Status: Acute (2) Anxiety and depression Code(s): F41.9 - ANXIETY DISORDER, UNSPECIFIED; F32.9 - MAJOR DEPRESSIVE DISORDER, SINGLE EPISODE, UNSPECIFIED Status: Chronic (3) BPH (benign prostatic hypertrophy) Code(s): N40.0 - BENIGN PROSTATIC HYPERPLASIA WITHOUT LOWER URINRY TRACT SYMP Status: Chronic (4) Cervical radiculopathy Code(s): M54.12 - RADICULOPATHY, CERVICAL REGION Status: Chronic (5) GERD (gastroesophageal reflux disease) Code(s): K21.9 - GASTRO-ESOPHAGEAL REFLUX DISEASE WITHOUT ESOPHAGITIS Status: Chronic (6) Hepatitis C Code(s): B19.20 - UNSPECIFIED VIRAL HEPATITIS C WITHOUT HEPATIC COMA Status: Chronic (7) Arrhythmia Code(s): I49.9 - CARDIAC ARRHYTHMIA, UNSPECIFIED Status: Acute Plan - Discharge Medications Prescriptions: Dutasteride 0.5 mg PO DAILY #30 capsule Apixaban [Eliquis] 5 mg PO BID #60 tab.ds.pk Escitalopram Oxalate 10 mg PO DAILY #30 tablet metFORMIN [Glucophage] 500 mg PO BID-WM #60 tab Home Medications: Medication Instructions Recorded Confirmed Type ALPRAZolam [Xanax] 2 mg PO TID PRN 02/06/14 09/27/20 History Pantoprazole [Protonix] 40 mg PO DAILY PRN 02/07/16 09/27/20 History traMADol HCl [Ultram] 50 mg PO TID PRN 10/31/16 09/27/20 History Gabapentin 300 mg PO DAILY 09/27/20 09/27/20 History Apixaban [Eliquis] 5 mg PO BID #60 tab.ds.pk 10/03/20 Rx Aspirin [Ecotrin Low Strength] 81 mg PO DAILY tab 10/03/20 Rx Atorvastatin Calcium [Lipitor] 40 mg PO HS tab 10/03/20 Rx Carvedilol [Coreg] 3.125 mg PO BID-WM tab 10/03/20 Rx Dutasteride 0.5 mg PO DAILY #30 capsule 10/03/20 Rx Escitalopram Oxalate 10 mg PO DAILY #30 tablet 10/03/20 Rx Lisinopril [Zestril] 5 mg PO DAILY #0 tab 10/03/20 Rx Sennosides/Docusate Sodium 2 tab PO BIDPRN PRN tab 10/03/20 Rx [Senokot S] metFORMIN [Glucophage] 500 mg PO BID-WM #60 tab 10/03/20 Rx Allergies: tizanidine Allergy (Verified 09/27/20 23:27) - Discharge Instructions Discharge Instructions:: Please check cbc since started on eliquis. pt has had hematuria few weeks ago. Activity:: Activity as Tolerated Nourishment:: Heart Healthy Diet - Follow up Plan Referrals: Isrrael Covington DO [Primary Care Provider] - Disposition: REHAB FACILITY Quality - Care Measures CORE MEASURES:: N/A
--- NOTE | 2020-10-04 12:29 | PQF ---
CLINICAL DOCUMENTATION CLARIFICATION FORM: Dear Dr. Kidd Date: 10/04/2020 Please exercise your independent, professional judgment in responding to the clarification form. Clinical indicators are provided on the bottom of this form for your review. Please check appropriate box(es): A. COVID 19 virus diagnosis Validation: [ ] COVID-19 is ruled in (if so, please provide the evidence used to support this diagnosis) [ ] COVID-19 has been ruled out [ ] Other explanation of clinical findings [ ] Unable to determine B. COVID 19 virus with associated manifestations: (please check all that apply) [ ] Pneumonia [ ] Acute Respiratory Failure [ ] Other diagnosis [ ] Unable to determine In addition, please specify: Present on Admission (POA): [ ] Yes [ ] No [ ] Unable to determine For continuity of documentation, please document condition throughout progress notes and discharge summary. Thank You. To be completed by CDI/Coding staff for physician review: Clinical Indicators - Signs / Symptoms / Labs with Results and Location in Medical Record *ER Record 09/27: HPI: sent from outside hospital for hypoxia and new onset bilateral infiltrates with flulike symptoms concerning for Covid Without supplemental oxygen pt desats to the 80s rapidly. Doctor Notes: 70 yo male with normal VS in no acute distress resting comfortably on 3L nc with O2 sats in the mid 90s. this certainly may be covid pneumonia *H&P 09/27 ([facility]) A/P: SOB could be 2/2 COVID pneumonia vs influenza vs bacterial pneumonia. *09/29 pn ([facility]): Plan: Pt's 2 covid test negative. His cta has high suspicious of covid. *09/30 Consult ([facility]) HPI: Here, he had a white count 2.4 Assessment: Abnormal findings on CT of chest, both here and at [facility] with those ground-glass opacities *10/01 pn ([facility]) Plan: 10/01 Pts antibody is positive most likely pt had Covid. Risk Factors with Results and Location in Medical Record *H&P 09/27 ([facility]) Hx Hep C; Obesity. *[facility] A/P: Bilateral pneumonia* 09/30 Consult ([facility]): HPI: hx CAD and systolic and diastolic CHF, HTN. admitted to [facility] . Dc'd on , 3 days later with Fountain catheter. Treatments with Results and Location in Medical Record *H&P 09/27 ([facility]) A/P: will start him on prophylactic Decadron for now. start prophylactic antibiotics. also order some inflammatory markers and put him on a droplet precaution *09/30 ID Consult 10/01 pn ([facility]) pts antibiotics have been discontinued. 10/02 pn ([facility]) Assessment: He is not infectious anymore and isolation precautions can be discontinued. Thank you, Jie Oneill RN, [email or web address] This is a permanent part of the Medical Record [facility]
--- NOTE | 2020-10-07 13:44 | EKG ---
Test Reason : STAT Blood Pressure : / mmHG Vent. Rate : 072 BPM Atrial Rate : 072 BPM P-R Int : 000 ms QRS Dur : 118 ms QT Int : 452 ms P-R-T Axes : 000 010 016 degrees QTc Int : 494 ms Poor data quality, interpretation may be adversely affected Normal sinus rhythm Right bundle branch block 27-SEP-2020 14:46, (Unconfirmed) Right bundle branch block has replaced Incomplete right bundle branch block Confirmed by CYRUS FUNES (2) on 10/07/2020 1:44:27 PM Referred By: YASMANI GANNON Confirmed By:CYRUS FUNES
== END 2020-10-03 20:00 | DRG 194 ==
LOC: ERS 14:38 → 2SW 16:19
PROVIDERS: ADMIT Internal Medicine; ATTEND Internal Medicine
PROC: 8E0ZXY6 Isolation (ICD-10-PCS; principal; 2020-09-27)
DX: J18.9 Pneumonia, unspecified organism (principal); I50.42 Chronic combined systolic (congestive) and diastolic (congestive) heart failure; I13.0 Hypertensive heart and chronic kidney disease with heart failure and stage 1 through stage 4 chronic kidney disease, or unspecified chronic kidney disease; F41.9 Anxiety disorder, unspecified; F32.9 Major depressive disorder, single episode, unspecified; N40.0 Benign prostatic hyperplasia without lower urinary tract symptoms; Z20.828 Contact with and (suspected) exposure to other viral communicable diseases; M54.12 Radiculopathy, cervical region; K21.9 Gastro-esophageal reflux disease without esophagitis; B19.20 Unspecified viral hepatitis C without hepatic coma; I49.9 Cardiac arrhythmia, unspecified; G89.29 Other chronic pain; E78.5 Hyperlipidemia, unspecified; Z96.651 Presence of right artificial knee joint; F17.220 Nicotine dependence, chewing tobacco, uncomplicated; M19.90 Unspecified osteoarthritis, unspecified site; M54.16 Radiculopathy, lumbar region; I25.5 Ischemic cardiomyopathy; N18.9 Chronic kidney disease, unspecified; E11.22 Type 2 diabetes mellitus with diabetic chronic kidney disease; I48.91 Unspecified atrial fibrillation; I25.10 Atherosclerotic heart disease of native coronary artery without angina pectoris; E66.9 Obesity, unspecified; G47.33 Obstructive sleep apnea (adult) (pediatric); Z88.8 Allergy status to other drugs, medicaments and biological substances; Z90.49 Acquired absence of other specified parts of digestive tract; Z95.5 Presence of coronary angioplasty implant and graft; I25.2 Old myocardial infarction; Z68.32 Body mass index [BMI] 32.0-32.9, adult; Z79.899 Other long term (current) drug therapy; Z91.14 Patient's other noncompliance with medication regimen
CPT/HCPCS: 36415; 36416; 51702; 71275; 80048; 80053; 81001; 82728; 83615; 83735; 85025; 85610; 85652; 85730; 86140; 86769; 87635; 87804; 93005; 93010; 96374; 96375; J0456; J1100; J1650; J1885; J1940; J1956; J2270; J2543; J3230; J3490; J7050; Q9967; U0002; U0003

== ENCOUNTER 2021-04-05 18:16 | Emergency (ER) | payer OTHER, MEDICARE ==
[2021-04-05] MEDS ORDERED: Ondansetron PF 4 MG/2 ML Vial ONE (18:37)
[2021-04-05] MEDS ORDERED: Fentanyl 100 MCG/2 ML VIAL ONE ×3 (18:37→22:08)
[2021-04-05 18:59] LABS: #Eosinphils 0.1 thou/uL (0.0-0.7); #Lymphocytes 2.2 thou/uL (1.20-3.40); #Monocytes 0.7 thou/uL (0.11-0.59); %Basophils 0.5 % (0.0-1.0); %Eosinophils 1.1 % (0.0-10.0); %Lymphocytes 27.9 % (21.0-51.0); %Monocytes 8.3 % (0.0-10.0); %Neutrophils 62.3 % (42.0-75.0); Hemoglobin 12.8 g/dL (14.0-18.0); Mean Corpuscular Hemoglobin 28.2 pg (27.0-31.0); Mean Corpuscular Volume 85.3 fL (78.0-98.0); Mean Platelet Volume 9.5 fL (7.4-10.4); Platelet Count 162 thou/uL (130-400); RBC Distribution Width 14.8 % (11.5-14.5); Red Blood Cell (RBC) Count 4.53 mill/uL (4.70-6.10)
[2021-04-05 19:11] LABS: PTT 29.5 sec (22.9-36.1)
[2021-04-05 19:20] LABS: ALT (SGPT) 84 U/L (8-55); AST (SGOT) 57 U/L (5-34); Albumin 3.7 g/dL (3.4-4.8); Alkaline Phosphatase 137 U/L (40-110); Anion Gap 13 mmol/L (10-20); BUN (Urea Nitrogen) 16 mg/dL (8.4-25.7); Bilirubin, Total 0.4 mg/dL (0.2-1.2); Calc. Creatinine Clearance 0 mL/min (70-130); Calcium 8.9 mg/dL (7.8-10.44); Carbon Dioxide 21 mmol/L (23-31); Chloride 107 mmol/L (98-107); Globulin 3.5 g/dL (2.4-3.5); Glucose 103 mg/dL (80-115); Potassium 4.1 mmol/L (3.5-5.1); Protein, Total 7.2 g/dL (5.8-8.1); Sodium 137 mmol/L (136-145)
[2021-04-05] MEDS ORDERED: HUMAN PROTHROMBIN COMPLX IV SCH (20:45)
[2021-04-05] MEDS ORDERED: ADMIXTURE FEE IV SCH (20:45)
== END 2021-04-05 22:42 | disposition short-term general hospital (02) ==
LOC: ERS 18:16
DX: S12.110A Anterior displaced Type II dens fracture, initial encounter for closed fracture (principal); S14.103A Unspecified injury at C3 level of cervical spinal cord, initial encounter; I48.91 Unspecified atrial fibrillation; K21.9 Gastro-esophageal reflux disease without esophagitis; E11.9 Type 2 diabetes mellitus without complications; E78.5 Hyperlipidemia, unspecified; F17.220 Nicotine dependence, chewing tobacco, uncomplicated; Z86.19 Personal history of other infectious and parasitic diseases; Z79.82 Long term (current) use of aspirin; Z79.899 Other long term (current) drug therapy; V86.59XA Driver of other special all-terrain or other off-road motor vehicle injured in nontraffic accident, initial encounter
CPT/HCPCS: 36415; 70450; 70486; 71260; 72125; 74177; 80053; 85025; 85610; 85730; 93005; 96365; 96375; 96376; C9132; J2405; J3010; Q9967

== ENCOUNTER 2021-05-14 11:38 | Inpatient (IN) | payer MEDICARE ==
[2021-05-14 16:17] VITALS: BMI 32.9
[2021-05-15 15:27] VITALS: BP 135/72; TEMP 98.4
== END 2021-05-15 16:15 | disposition home health service (06) | DRG 311 ==
LOC: ERS 11:38 → 2NO 13:13
PROVIDERS: ADMIT Internal Medicine; ATTEND Internal Medicine
DX: I24.8 Other forms of acute ischemic heart disease (principal); I50.42 Chronic combined systolic (congestive) and diastolic (congestive) heart failure; I13.0 Hypertensive heart and chronic kidney disease with heart failure and stage 1 through stage 4 chronic kidney disease, or unspecified chronic kidney disease; K21.9 Gastro-esophageal reflux disease without esophagitis; M19.90 Unspecified osteoarthritis, unspecified site; E78.5 Hyperlipidemia, unspecified; I48.91 Unspecified atrial fibrillation; Z96.651 Presence of right artificial knee joint; F41.9 Anxiety disorder, unspecified; F17.220 Nicotine dependence, chewing tobacco, uncomplicated; I25.10 Atherosclerotic heart disease of native coronary artery without angina pectoris; R51.9 Headache, unspecified; R20.2 Paresthesia of skin; J45.909 Unspecified asthma, uncomplicated; N40.0 Benign prostatic hyperplasia without lower urinary tract symptoms; N18.9 Chronic kidney disease, unspecified; E11.22 Type 2 diabetes mellitus with diabetic chronic kidney disease; F32.9 Major depressive disorder, single episode, unspecified; G47.33 Obstructive sleep apnea (adult) (pediatric); H90.5 Unspecified sensorineural hearing loss; G89.4 Chronic pain syndrome; S12.100D Unspecified displaced fracture of second cervical vertebra, subsequent encounter for fracture with routine healing; Z86.19 Personal history of other infectious and parasitic diseases; Z87.11 Personal history of peptic ulcer disease; Z90.49 Acquired absence of other specified parts of digestive tract; Z95.5 Presence of coronary angioplasty implant and graft; Z96.82 Presence of neurostimulator; Z88.8 Allergy status to other drugs, medicaments and biological substances; Z79.01 Long term (current) use of anticoagulants; Z79.84 Long term (current) use of oral hypoglycemic drugs; Z79.82 Long term (current) use of aspirin; Z79.899 Other long term (current) drug therapy; Z87.01 Personal history of pneumonia (recurrent); Z82.49 Family history of ischemic heart disease and other diseases of the circulatory system; Z82.5 Family history of asthma and other chronic lower respiratory diseases; Z80.8 Family history of malignant neoplasm of other organs or systems; Z82.61 Family history of arthritis
CPT/HCPCS: 36415; 36416; 70450; 71275; 72125; 80048; 80061; 83036; 83880; 85025; 93005; 93306; 96374; 96375; J1885; J2270; Q9967

== ENCOUNTER 2021-10-29 09:01 | Emergency (ER) | payer MEDICARE ==
[2021-10-29 09:49] LABS: #Eosinphils 0.2 thou/uL (0.0-0.7); #Lymphocytes 2.7 thou/uL (1.20-3.40); #Monocytes 0.9 thou/uL (0.11-0.59); #Neutrophils 3.1 thou/uL (1.40-6.50); %Basophils 0.5 % (0.0-1.0); %Eosinophils 3.1 % (0.0-10.0); %Lymphocytes 39.1 % (21.0-51.0); %Monocytes 12.2 % (0.0-10.0); %Neutrophils 45.1 % (42.0-75.0); Hemoglobin 12.3 g/dL (14.0-18.0); Mean Corpuscular HGB CONC 33.5 g/dL (32.0-36.0); Mean Corpuscular Hemoglobin 30.9 pg (27.0-31.0); Mean Corpuscular Volume 92.4 fL (78.0-98.0); Mean Platelet Volume 7.8 fL (7.4-10.4); Platelet Count 142 thou/uL (130-400); Red Blood Cell (RBC) Count 3.98 mill/uL (4.70-6.10)
[2021-10-29 10:21] LABS: ALT (SGPT) 147 U/L (8-55); AST (SGOT) 82 U/L (5-34); Albumin 3.2 g/dL (3.4-4.8); Alkaline Phosphatase 124 U/L (40-110); Anion Gap 11 mmol/L (10-20); BUN (Urea Nitrogen) 24 mg/dL (8.4-25.7); Bilirubin, Total 0.3 mg/dL (0.2-1.2); CK (CPK) 49 U/L (30-200); Calc. Creatinine Clearance 0 mL/min (70-130); Carbon Dioxide 27 mmol/L (23-31); Chloride 106 mmol/L (98-107); Glucose 148 mg/dL (83-110); Potassium 4.6 mmol/L (3.5-5.1); Protein, Total 6.2 g/dL (5.8-8.1); Sodium 139 mmol/L (136-145)
[2021-10-29 10:23] LABS: SARS-CoV-2 NAA Rapid Test Not Detected (NotDetected)
[2021-10-29 18:55] LABS: Lipase 50 U/L (8-78)
== END 2021-10-29 13:37 | disposition home or self-care (01) ==
LOC: ERS 09:01
DX: R53.1 Weakness (principal); R94.5 Abnormal results of liver function studies; Z20.822 Contact with and (suspected) exposure to COVID-19; K21.9 Gastro-esophageal reflux disease without esophagitis; E78.5 Hyperlipidemia, unspecified; E11.9 Type 2 diabetes mellitus without complications; I48.91 Unspecified atrial fibrillation; Z79.82 Long term (current) use of aspirin; Z79.84 Long term (current) use of oral hypoglycemic drugs
CPT/HCPCS: 0240U; 71045; 71275; 80053; 82550; 83605; 83690; 83880; 84484; 85025; 85379; 93005; 99285; 36415

== ENCOUNTER 2023-03-11 20:41 | Inpatient (IN) | payer MEDICARE ==
[2023-03-11 23:25] VITALS: BMI 38.5
[2023-03-11] MEDS ORDERED: HumaLOG 300 UNITS/3 ML VIAL SC PRN (23:45)
[2023-03-11] MEDS ORDERED: Calcium Carbonate 500 MG ChewTAB PO PRN (23:45)
[2023-03-11] MEDS ORDERED: Acetaminophen 325 MG TAB PO PRN (23:45)
[2023-03-11] MEDS ORDERED: Dextrose 50% Abboject 50 ML SYRINGE SLOW IVP PRN (23:45)
[2023-03-11] MEDS ORDERED: Dextrose 5% in Water 1,000 ML IV PRN (23:45)
[2023-03-11] MEDS ORDERED: Ondansetron ODT 4 MG TAB PO PRN (23:45)
[2023-03-12] MEDS ORDERED: ALPRAZOLAM 2 MG PO PRN (00:25)
[2023-03-12 02:13] LABS: #Eosinphils 0.1 thou/uL (0.0-0.7); #Monocytes 0.9 thou/uL (0.11-0.59); #Neutrophils 5.4 thou/uL (1.40-6.50); %Basophils 0.3 % (0.0-1.0); %Eosinophils 0.6 % (0.0-10.0); %Lymphocytes 33.4 % (21.0-51.0); %Neutrophils 56.5 % (42.0-75.0); Hemoglobin 12.3 g/dL (14.0-18.0); Mean Corpuscular HGB CONC 32.4 g/dL (32.0-36.0); Mean Corpuscular Hemoglobin 30.4 pg (27.0-31.0); Mean Corpuscular Volume 94.1 fl (78.0-98.0); Mean Platelet Volume 10.8 fL (7.4-10.4); Platelet Count 117 10x3/uL (130-400); RBC Distribution Width 14.1 % (11.5-14.5); Red Blood Cell (RBC) Count 4.04 mill/uL (4.70-6.10); White Blood Cell (WBC) Count 9.5 10x3/uL (4.8-10.8)
[2023-03-12 02:22] LABS: Hemoglobin A1c 7.9 % (4.0-6.0)
[2023-03-12 02:38] LABS: Troponin I 0.043 ng/mL (< 0.028)
[2023-03-12 02:48] LABS: Anion Gap 13 mmol/L (10-20); BUN (Urea Nitrogen) 24 mg/dL (8.4-25.7); Calc. Creatinine Clearance 116 mL/min (70-130); Calcium 8.9 mg/dL (7.8-10.44); Carbon Dioxide 20 mmol/L (23-31); Cardiac Risk 2.6 (Less than 4.5); Chloride 104 mmol/L (98-107); Cholesterol 94 mg/dl (< 200 Desired); Estimated GFR 81; Glucose 203 mg/dL (83-110); HDL Cholesterol 36 mg/dL (>60 Neg Risk); LDL Cholesterol, Calculated 46 mg/dL; Sodium 133 mmol/L (136-145); Triglycerides 60 mg/dL (Less than 150)
[2023-03-12] MEDS ORDERED: Famotidine 20 MG TAB PO SCH (09:00)
[2023-03-12] MEDS ORDERED: Aspirin 81 mg Enteric Coated Tablet PO SCH (09:00)
[2023-03-12] MEDS: Lisinopril 5 MG TAB PO SCH (09:37)
[2023-03-12] MEDS: Aspirin Chewable 81 MG TAB PO SCH (09:37)
[2023-03-12] MEDS: Carvedilol 3.125 MG TAB PO SCH ×2 (09:37→17:39)
[2023-03-12] MEDS: Senokot S 8.6-50 MG TAB PO PRN (10:43)
[2023-03-12] MEDS: ALPRAZolam 1 MG TAB PO PRN ×2 (10:43→22:15)
[2023-03-12] MEDS: Sodium Chloride 0.9% 500 ML IV SCH ×2 (12:30→20:07)
[2023-03-12] MEDS ORDERED: Acetaminophen 325 MG TAB PO PRN (18:42)
[2023-03-12] MEDS ORDERED: HYDROcodone/Acetaminophen 5/325 mg Tablet PO PRN (18:42)
[2023-03-12] MEDS ORDERED: Methocarbamol 500 MG TAB PO SCH (18:45)
[2023-03-12] MEDS: Lidocaine 4% Patch TD SCH ×2 (19:05→19:17)
[2023-03-12] MEDS: HumaLOG 300 UNITS/3 ML VIAL SC PRN (19:05)
[2023-03-12] MEDS: Morphine 2 MG/ML VIAL SLOW IVP PRN (19:57)
[2023-03-12] MEDS: Atorvastatin Calcium 40 MG TAB PO SCH (19:57)
[2023-03-12 20:07] LABS: Troponin I 0.032 ng/mL (< 0.028)
[2023-03-13] MEDS: Transdermal Patch Removal TOP SCH ×2 (04:51→22:28)
[2023-03-13] MEDS: Sodium Chloride 0.9% 500 ML IV SCH ×2 (06:10→15:52)
[2023-03-13] MEDS ORDERED: Lidocaine 4% Patch TD SCH (09:00)
[2023-03-13] MEDS ORDERED: Lidocaine 2% Viscous Solution 20 ML, Aluminum & Magnesium Hydroxide 30 ML, Donnatal Eli... SSW SCH (09:00)
[2023-03-13] MEDS ORDERED: Iopamidol 370 76% 100 ML VIAL ONE (10:23)
[2023-03-13] MEDS: ALPRAZolam 1 MG TAB PO PRN ×2 (10:49→22:52)
[2023-03-13] MEDS: Lisinopril 5 MG TAB PO SCH (10:49)
[2023-03-13] MEDS: Carvedilol 3.125 MG TAB PO SCH ×2 (10:49→18:01)
[2023-03-13] MEDS: Aspirin Chewable 81 MG TAB PO SCH (10:50)
[2023-03-13] MEDS: Senokot S 8.6-50 MG TAB PO PRN (11:00)
[2023-03-13] MEDS ORDERED: Milk Of Magnesia 30 ML UDCUP PO PRN (11:09)
[2023-03-13] MEDS: Morphine 2 MG/ML VIAL SLOW IVP PRN (18:08)
[2023-03-13] MEDS: Lidocaine 4% Patch TD SCH (18:46)
[2023-03-13] MEDS: Atorvastatin Calcium 40 MG TAB PO SCH (20:32)
[2023-03-13] MEDS: Gabapentin 300 MG CAP PO SCH (20:32)
[2023-03-13] MEDS ORDERED: traZODone HCl 50 MG TAB PO SCH (21:00)
[2023-03-14 04:03] VITALS: BP 121/70; TEMP 98.6
[2023-03-14] MEDS: HumaLOG 300 UNITS/3 ML VIAL SC PRN (05:56)
[2023-03-14] MEDS: Gabapentin 300 MG CAP PO SCH (08:30)
[2023-03-14] MEDS: Lisinopril 5 MG TAB PO SCH (08:30)
[2023-03-14] MEDS: Carvedilol 3.125 MG TAB PO SCH (08:30)
[2023-03-14] MEDS: Aspirin Chewable 81 MG TAB PO SCH (08:30)
[2023-03-14] MEDS ORDERED: Escitalopram Oxalate 20 mg Tablet PO SCH (09:00)
[2023-03-14] MEDS ORDERED: Finasteride 5 MG TAB PO SCH (09:00)
[2023-03-14] MEDS ORDERED: glipiZIDE 5 MG TAB PO SCH (09:00)
== END 2023-03-14 11:29 | disposition home or self-care (01) | DRG 153 ==
LOC: 2SW 23:10 → OBSVTOIN 03-12 12:55
PROVIDERS: ADMIT Family Medicine; ATTEND Family Medicine
DX: J06.9 Acute upper respiratory infection, unspecified (principal); I50.32 Chronic diastolic (congestive) heart failure; B97.4 Respiratory syncytial virus as the cause of diseases classified elsewhere; I11.0 Hypertensive heart disease with heart failure; I48.0 Paroxysmal atrial fibrillation; E11.9 Type 2 diabetes mellitus without complications; E78.5 Hyperlipidemia, unspecified; F41.9 Anxiety disorder, unspecified; R77.8 Other specified abnormalities of plasma proteins; K21.9 Gastro-esophageal reflux disease without esophagitis; G89.29 Other chronic pain; M54.9 Dorsalgia, unspecified; Z96.659 Presence of unspecified artificial knee joint; Z88.8 Allergy status to other drugs, medicaments and biological substances; Z79.899 Other long term (current) drug therapy; Z79.82 Long term (current) use of aspirin; Z79.01 Long term (current) use of anticoagulants; Z95.5 Presence of coronary angioplasty implant and graft; Z90.49 Acquired absence of other specified parts of digestive tract; Z86.19 Personal history of other infectious and parasitic diseases
CPT/HCPCS: 36415; 36416; 71275; 80048; 80061; 83036; 83880; 84484; 85025; 85379; 93306; 94760; 96372; G0378; J1650; J1815; J2272; J7050; Q9967

== ENCOUNTER 2024-08-20 01:32 | Emergency (ER) | payer MEDICARE | END 2024-08-20 03:40 | disposition home or self-care (01) | LOC: ERS 01:32 | DX: M54.6 Pain in thoracic spine (principal); E11.9 Type 2 diabetes mellitus without complications; I10 Essential (primary) hypertension; F17.220 Nicotine dependence, chewing tobacco, uncomplicated; Z55.6 Problems related to health literacy | CPT/HCPCS: 96372; 96374 ==

== ENCOUNTER 2024-08-26 15:18 | Inpatient (IN) | payer MEDICARE ==
[2024-08-26] MEDS ORDERED: Acetaminophen 500 MG TAB ONE (15:49)
[2024-08-26 17:15] LABS: #Basophils Less than 0.03 10x3/uL (0.0-0.2); %Basophils 0.2 % (0.0-1.0); %Eosinophils 0.3 % (0.0-10.0); %Lymphocytes 23.8 % (21.0-51.0); %Monocytes 10.7 % (0.0-10.0); %Neutrophils 64.8 % (42.0-75.0); Hematocrit 40.6 % (42.0-52.0); Hemoglobin 13.3 g/dL (14.0-18.0); Mean Corpuscular HGB CONC 32.8 g/dL (32.0-36.0); Mean Corpuscular Hemoglobin 28.2 pg (27.0-31.0); Mean Corpuscular Volume 86.2 fL (78.0-98.0); Mean Platelet Volume 12.3 fL (7.4-10.4); Platelet Count 169 10x3/uL (130-400); RBC Distribution Width 15.9 % (11.5-14.5); Red Blood Cell (RBC) Count 4.71 mill/uL (4.70-6.10)
[2024-08-26 17:31] LABS: ALT (SGPT) 196 U/L (8-55); AST (SGOT) 146 U/L (5-34); Albumin 3.2 g/dL (3.4-4.8); Alkaline Phosphatase 187 U/L (40-110); Anion Gap 16 mmol/L (10-20); BUN (Urea Nitrogen) 25 mg/dL (8.4-25.7); Bilirubin, Total 1.6 mg/dL (0.2-1.2); Calc. Creatinine Clearance 0 mL/min (70-130); Carbon Dioxide 19 mmol/L (23-31); Chloride 104 mmol/L (98-107); Estimated GFR 74; Globulin 4.5 g/dL (2.4-3.5); Glucose 324 mg/dL (83-110); Potassium 4.4 mmol/L (3.5-5.1); Protein, Total 7.7 g/dL (5.8-8.1); Sodium 135 mmol/L (136-145)
[2024-08-26 17:36] LABS: Troponin I 0.098 ng/mL (< 0.028)
[2024-08-26 17:48] LABS: Acetaminophen Less than 10 mcg/mL (Less than 10); Alcohol Less than 10.0 mg/dL (Less than 10); Lipase 15 U/L (8-78); Magnesium 1.6 mg/dL (1.6-2.6); Salicylate Less than 8.0 mg/dL (Less than 8.0)
[2024-08-26] MEDS ORDERED: Glucagon 1 MG/ML KIT IM PRN (21:02)
[2024-08-26] MEDS ORDERED: Dextrose 50% Abboject 50 ML SYRINGE SLOW IVP PRN (21:02)
[2024-08-26] MEDS ORDERED: Dextrose 5% in Water 1,000 ML IV PRN (21:02)
[2024-08-26] MEDS ORDERED: traMADol HCl 50 MG TAB PO PRN (21:02)
[2024-08-26] MEDS ORDERED: Ketorolac Tromethamine 30 MG (1 mL) VIAL ONE (21:53)
[2024-08-26] MEDS: Ketorolac Tromethamine 30 MG (1 mL) VIAL IVP SCH (22:00)
[2024-08-26] MEDS ORDERED: Polyethylene Glycol 3350 17 GM Packet PO PRN (23:31)
[2024-08-26 23:55] LABS: Troponin I 0.121 ng/mL (< 0.028)
[2024-08-26] MEDS ORDERED: Lorazepam 1 MG TAB ONE (23:57)
[2024-08-27 00:06] LABS: Phosphorus 2.6 mg/dL (2.3-4.7)
[2024-08-27] MEDS: Lorazepam 1 MG TAB PO PRN (00:10)
[2024-08-27 00:27] LABS: Acetaminophen Less than 10 mcg/mL (Less than 10); Alcohol Less than 10.0 mg/dL (Less than 10); Salicylate Less than 8.0 mg/dL (Less than 8.0)
[2024-08-27 00:39] LABS: Bacteria/HPF None Seen HPF (None Seen); Bilirubin Negative (Negative); Blood, Urine 3+ (Negative); CAUTI Indications for Culture Alt mental st,lethar; Clarity Clear (Clear); Glucose, Urine (Dipstick) Greater than 1000 mg/dL (Negative); Ketone, Urine 60 mg/dL (Negative); Leukocyte Negative Leu/uL (Negative); Nitrite Negative (Negative); Protein, Urine (Dipstick) 100 mg/dL (Neg-Trace); RBC/HPF Greater than 50 HPF (0-3); Specific Gravity, Urine 1.039 (1.002-1.036); Squamous Epithelial 0-3 HPF (0-3); Urobilinogen 3 mg/dL (Less than 2)
[2024-08-27 00:40] LABS: Urine Culture Reflex No No
[2024-08-27] MEDS ORDERED: Ketorolac Tromethamine 30 MG (1 mL) VIAL ONE (03:36)
[2024-08-27] MEDS: Carvedilol 3.125 MG TAB PO SCH ×2 (03:42→09:49)
[2024-08-27 04:05] LABS: Anion Gap 17 mmol/L (10-20); BUN (Urea Nitrogen) 28 mg/dL (8.4-25.7); Calc. Creatinine Clearance 93 mL/min (70-130); Calcium 8.7 mg/dL (7.8-10.44); Carbon Dioxide 17 mmol/L (23-31); Chloride 105 mmol/L (98-107); Estimated GFR 73; Glucose 317 mg/dL (83-110); Sodium 135 mmol/L (136-145)
[2024-08-27] MEDS ORDERED: Insulin Lispro 100 UNIT/ML 10 ML VIAL ONE (04:09)
[2024-08-27] MEDS: Insulin Lispro 100 UNIT/ML 10 ML VIAL SC PRN ×3 (04:13→21:31)
[2024-08-27 04:18] LABS: Troponin I 0.137 ng/mL (< 0.028)
[2024-08-27 05:25] LABS: Amphetamine Not Detected (NotDetected); Barbiturates Screen Not Detected (NotDetected); Benzodiazepine Screen Detected (NotDetected); Cocaine Metabolite Screen Not Detected (NotDetected); Methadone Not Detected (NotDetected); Methamphetamine Not Detected (NotDetected); Opiate Screen Not Detected (NotDetected); Oxycodone Screen Not Detected (NotDetected); Phencyclidine (PCP) Not Detected (NotDetected); THC/Cannabinoid Screen Not Detected (NotDetected); Tricyclic Screen Detected (NotDetected)
[2024-08-27 05:40] LABS: #Basophils 0.03 10x3/uL (0.0-0.2); %Basophils 0.3 % (0.0-1.0); %Eosinophils 0.3 % (0.0-10.0); %Lymphocytes 26.3 % (21.0-51.0); %Monocytes 11.5 % (0.0-10.0); %Neutrophils 61.3 % (42.0-75.0); Hematocrit 39.9 % (42.0-52.0); Hemoglobin 13.5 g/dL (14.0-18.0); Mean Corpuscular HGB CONC 33.8 g/dL (32.0-36.0); Mean Corpuscular Hemoglobin 28.6 pg (27.0-31.0); Mean Corpuscular Volume 84.5 fL (78.0-98.0); Mean Platelet Volume 11.5 fL (7.4-10.4); Platelet Count 115 10x3/uL (130-400); RBC Distribution Width 15.9 % (11.5-14.5); Red Blood Cell (RBC) Count 4.72 mill/uL (4.70-6.10)
[2024-08-27 05:41] LABS: Anisocytosis SLIGHT = 6-15 cells (100X) (0-5/hpf); Platelet Adequacy Comment Appears Decreased
[2024-08-27] MEDS: Insulin Glargine 30 UNITS/0.3 ML VIAL SC SCH ×2 (06:49→09:50)
[2024-08-27 06:52] VITALS: BMI 34.1
[2024-08-27 08:55] LABS: HIV (1/2) Antibody/Antigen NONREACTIVE (NonReactive); HIV 1/2 INDEX 0.06 S/CO (<1.00)
[2024-08-27] MEDS ORDERED: Lidocaine 4% Patch TD SCH (09:00)
[2024-08-27] MEDS ORDERED: Diclofenac 1% 50 GM TOPICAL GEL TP SCH (09:00)
[2024-08-27 09:15] LABS: Hemoglobin A1c 9.2 % (4.0-6.0)
[2024-08-27] MEDS: Lorazepam 1 MG TAB PO SCH (09:49)
[2024-08-27] MEDS: Aspirin 81 mg Enteric Coated Tablet PO SCH (09:49)
[2024-08-27] MEDS: Escitalopram Oxalate 20 mg Tablet PO SCH (09:50)
[2024-08-27] MEDS: Lisinopril 5 MG TAB PO SCH (09:50)
[2024-08-27] MEDS: Empagliflozin 25 MG TAB PO SCH (09:50)
[2024-08-27] MEDS: Finasteride 5 MG TAB PO SCH (09:50)
[2024-08-27] MEDS: Lidocaine 4% Patch TD SCH (09:50)
[2024-08-27] MEDS: Multivitamin W/ Minerals 1 TAB PO SCH (09:50)
[2024-08-27] MEDS: Enoxaparin 40 MG (0.4 mL) SYRINGE SC SCH (09:50)
[2024-08-27] MEDS: Pantoprazole DR 40 MG TAB PO SCH (10:40)
[2024-08-27 11:03] LABS: Syphilis Antibody Nonreactive (Nonreactive); Syphilis Antibody Index 0.11 S/CO (<1.00 Non-Reactive)
[2024-08-27 11:49] VITALS: BMI 34.1
[2024-08-27] MEDS: Acetaminophen 500 MG TAB PO PRN (15:49)
[2024-08-27 16:05] LABS: Bacteria/HPF None Seen HPF (None Seen); Bilirubin Negative (Negative); Blood, Urine 1+ (Negative); Clarity Clear (Clear); Glucose, Urine (Dipstick) Greater than 1000 mg/dL (Negative); Ketone, Urine 10 mg/dL (Negative); Leukocyte Negative Leu/uL (Negative); Nitrite Negative (Negative); Protein, Urine (Dipstick) 30 mg/dL (Neg-Trace); RBC/HPF 0-3 HPF (0-3); Specific Gravity, Urine 1.041 (1.002-1.036); Squamous Epithelial 0-3 HPF (0-3); Urobilinogen 3 mg/dL (Less than 2); WBC/HPF 0-3 HPF (0-3); pH, Urine 6.5 (5.0-9.0)
[2024-08-27] MEDS: Pregabalin 50 MG CAP PO SCH (21:28)
[2024-08-27] MEDS: Transdermal Patch Removal TOP SCH (21:31)
[2024-08-27] MEDS: Atorvastatin Calcium 40 MG TAB PO SCH (21:31)
[2024-08-28 05:38] LABS: Anion Gap 15 mmol/L (10-20); BUN (Urea Nitrogen) 33 mg/dL (8.4-25.7); Calc. Creatinine Clearance 86 mL/min (70-130); Calcium 8.7 mg/dL (7.8-10.44); Carbon Dioxide 21 mmol/L (23-31); Chloride 106 mmol/L (98-107); Estimated GFR 67; Glucose 161 mg/dL (83-110); Potassium 3.4 mmol/L (3.5-5.1); Sodium 139 mmol/L (136-145)
[2024-08-28 05:54] LABS: #Basophils 0.05 10x3/uL (0.0-0.2); %Basophils 0.5 % (0.0-1.0); %Eosinophils 2.3 % (0.0-10.0); %Monocytes 9.5 % (0.0-10.0); %Neutrophils 55.5 % (42.0-75.0); Hemoglobin 13.1 g/dL (14.0-18.0); Mean Corpuscular HGB CONC 32.8 g/dL (32.0-36.0); Mean Corpuscular Hemoglobin 28.7 pg (27.0-31.0); Mean Corpuscular Volume 87.5 fL (78.0-98.0); Mean Platelet Volume 11.1 fL (7.4-10.4); Platelet Count 127 10x3/uL (130-400); RBC Distribution Width 16.6 % (11.5-14.5); Red Blood Cell (RBC) Count 4.57 mill/uL (4.70-6.10)
[2024-08-28] MEDS: Potassium Chloride 20 MEQ TAB PO SCH (08:41)
[2024-08-28] MEDS: FLU (Fluad Triv) TS24-25 (65UP)/MF59C/PF 45 MCG/0.5 ML Syringe IM ONE (08:41)
[2024-08-28] MEDS: Insulin Glargine 30 UNITS/0.3 ML VIAL SC SCH (09:29)
[2024-08-29] MEDS: Methocarbamol 500 MG TAB PO SCH (01:08)
[2024-08-29 05:12] LABS: #Basophils 0.04 10x3/uL (0.0-0.2); %Basophils 0.9 % (0.0-1.0); %Eosinophils 6.6 % (0.0-10.0); %Lymphocytes 29.5 % (21.0-51.0); %Monocytes 9.3 % (0.0-10.0); %Neutrophils 53.5 % (42.0-75.0); Hematocrit 42.3 % (42.0-52.0); Hemoglobin 13.9 g/dL (14.0-18.0); Mean Corpuscular HGB CONC 32.9 g/dL (32.0-36.0); Mean Corpuscular Hemoglobin 28.9 pg (27.0-31.0); Mean Corpuscular Volume 87.9 fL (78.0-98.0); Mean Platelet Volume 11.2 fL (7.4-10.4); Platelet Count 91 10x3/uL (130-400); RBC Distribution Width 16.3 % (11.5-14.5); Red Blood Cell (RBC) Count 4.81 mill/uL (4.70-6.10)
[2024-08-29 05:18] LABS: Anion Gap 14 mmol/L (10-20); BUN (Urea Nitrogen) 33 mg/dL (8.4-25.7); Calc. Creatinine Clearance 91 mL/min (70-130); Calcium 8.7 mg/dL (7.8-10.44); Carbon Dioxide 19 mmol/L (23-31); Chloride 108 mmol/L (98-107); Estimated GFR 71; Glucose 265 mg/dL (83-110); Potassium 4.3 mmol/L (3.5-5.1); Sodium 137 mmol/L (136-145)
[2024-08-29] MEDS ORDERED: Insulin Glargine 30 UNITS/0.3 ML VIAL SC SCH ×2 (09:00)
[2024-08-29] MEDS: Insulin Glargine 30 UNITS/0.3 ML VIAL SC SCH (09:12)
[2024-08-29] MEDS: Cyclobenzaprine 10 MG TAB PO PRN (11:37)
[2024-08-29 14:23] LABS: Anion Gap 16 mmol/L (10-20); BUN (Urea Nitrogen) 33 mg/dL (8.4-25.7); Calc. Creatinine Clearance 88 mL/min (70-130); Calcium 8.6 mg/dL (7.8-10.44); Carbon Dioxide 18 mmol/L (23-31); Chloride 108 mmol/L (98-107); Estimated GFR 69; Glucose 211 mg/dL (83-110); Potassium 4.1 mmol/L (3.5-5.1); Sodium 138 mmol/L (136-145)
[2024-08-30 07:25] LABS: #Basophils 0.03 10x3/uL (0.0-0.2); %Basophils 0.7 % (0.0-1.0); %Eosinophils 7.5 % (0.0-10.0); %Monocytes 11.9 % (0.0-10.0); %Neutrophils 38.7 % (42.0-75.0); Hematocrit 40.1 % (42.0-52.0); Hemoglobin 12.9 g/dL (14.0-18.0); Mean Corpuscular HGB CONC 32.2 g/dL (32.0-36.0); Mean Corpuscular Hemoglobin 28.9 pg (27.0-31.0); Mean Corpuscular Volume 89.7 fL (78.0-98.0); Mean Platelet Volume 10.6 fL (7.4-10.4); Platelet Count 109 10x3/uL (130-400); RBC Distribution Width 16.6 % (11.5-14.5); Red Blood Cell (RBC) Count 4.47 mill/uL (4.70-6.10)
[2024-08-30 07:41] LABS: Anion Gap 15 mmol/L (10-20); BUN (Urea Nitrogen) 34 mg/dL (8.4-25.7); Calc. Creatinine Clearance 89 mL/min (70-130); Calcium 8.5 mg/dL (7.8-10.44); Carbon Dioxide 18 mmol/L (23-31); Chloride 107 mmol/L (98-107); Estimated GFR 70; Glucose 218 mg/dL (83-110); Potassium 3.9 mmol/L (3.5-5.1); Sodium 136 mmol/L (136-145)
[2024-08-30] MEDS: Insulin Glargine 30 UNITS/0.3 ML VIAL SC SCH (09:22)
[2024-08-30] MEDS: CeleCOXIB 100 MG CAP PO PRN (14:10)
[2024-08-31] MEDS ORDERED: HYDROcodone/Acetaminophen 5/325 mg Tablet PO PRN (03:12)
[2024-08-31] MEDS: HYDROcodone/Acetaminophen 5/325 mg Tablet PO PRN (03:22)
[2024-08-31] MEDS: Diazepam 5 MG TAB PO PRN (03:22)
[2024-08-31 05:04] LABS: #Basophils 0.03 10x3/uL (0.0-0.2); %Basophils 0.7 % (0.0-1.0); %Eosinophils 6.5 % (0.0-10.0); %Lymphocytes 39.8 % (21.0-51.0); %Monocytes 12.8 % (0.0-10.0); %Neutrophils 40.2 % (42.0-75.0); Hematocrit 39.7 % (42.0-52.0); Hemoglobin 12.9 g/dL (14.0-18.0); Mean Corpuscular HGB CONC 32.5 g/dL (32.0-36.0); Mean Corpuscular Hemoglobin 28.7 pg (27.0-31.0); Mean Corpuscular Volume 88.4 fL (78.0-98.0); Mean Platelet Volume 11.5 fL (7.4-10.4); Platelet Count 111 10x3/uL (130-400); RBC Distribution Width 16.4 % (11.5-14.5); Red Blood Cell (RBC) Count 4.49 mill/uL (4.70-6.10)
[2024-08-31 05:12] LABS: Anion Gap 12 mmol/L (10-20); BUN (Urea Nitrogen) 29 mg/dL (8.4-25.7); Calc. Creatinine Clearance 112 mL/min (70-130); Calcium 8.8 mg/dL (7.8-10.44); Carbon Dioxide 19 mmol/L (23-31); Chloride 109 mmol/L (98-107); Estimated GFR 90; Glucose 143 mg/dL (83-110); Potassium 4.2 mmol/L (3.5-5.1); Sodium 136 mmol/L (136-145)
[2024-08-31] MEDS ORDERED: SUGAMMADEX SODIUM 200 MG/2 ML VIAL ONE ×2 (07:17→14:15)
[2024-08-31] MEDS ORDERED: Lidocaine 2% PF 5 ML VIAL ONE (07:18)
[2024-08-31] MEDS ORDERED: Rocuronium Bromide 10 MG/ML (10ML VIAL) ONE ×2 (07:18→10:56)
[2024-08-31] MEDS ORDERED: Dexamethasone 20 MG/5 ML VIAL ONE (07:18)
[2024-08-31] MEDS ORDERED: Ondansetron PF 4 MG/2 ML Vial ONE (07:18)
[2024-08-31] MEDS ORDERED: fentaNYL PF 100 MCG/2 ML SYRINGE ONE ×2 (07:18→14:32)
[2024-08-31] MEDS ORDERED: PROPOFOL 20 ML ONE ×2 (07:19→10:01)
[2024-08-31] MEDS ORDERED: Midazolam HCl 2 mg/2 ml Vial ONE (07:19)
[2024-08-31] MEDS ORDERED: ePHEDrine Sulfate 50 MG/10 ML VIAL ONE ×2 (07:20→07:57)
[2024-08-31] MEDS ORDERED: Vancomycin 1 GM VIAL ONE (07:23)
[2024-08-31] MEDS ORDERED: Thrombin 5000 UNITS/5 ML VIAL ONE (07:23)
[2024-08-31] MEDS ORDERED: Tranexamic Acid 1,000 MG/10 ML VIAL ONE (07:58)
[2024-08-31] MEDS ORDERED: CEFAZOLIN 2 GM VIAL ONE (08:02)
[2024-08-31] MEDS ORDERED: PHENYLEPHRINE-NS 100 MCG/ML 10 ML SYRINGE ONE (09:55)
[2024-08-31] MEDS: Insulin Glargine 30 UNITS/0.3 ML VIAL SC SCH ×2 (10:10→20:48)
[2024-08-31] MEDS ORDERED: Ondansetron HCl/PF 4 MG/2 ML Vial IVP PRN (11:34)
[2024-08-31] MEDS ORDERED: Promethazine HCl 25 MG/ML VIAL IM PRN ×2 (11:34→14:27)
[2024-08-31] MEDS ORDERED: HYDROmorphone 2 MG/ML VIAL SLOW IVP PRN (11:34)
[2024-08-31] MEDS ORDERED: diphenhydrAMINE 50 MG/ML VIAL IM PRN (14:27)
[2024-08-31] MEDS ORDERED: Naloxone HCl 0.4 mg/ml Vial IV PRN (14:27)
[2024-08-31] MEDS ORDERED: Ondansetron PF 4 MG/2 ML Vial IVP PRN (14:27)
[2024-08-31] MEDS ORDERED: FENTANYL 500 MCG/10 ML VIAL 2,000 MCG in Sodium Chloride 0.9% 60 ML IV PRN (14:27)
[2024-08-31] MEDS ORDERED: [UNRECOGNIZED DRUG - REMARK] FS PRN (14:30)
[2024-08-31] MEDS ORDERED: Lorazepam 1 MG TAB PO PRN (15:17)
[2024-08-31] MEDS ORDERED: Sodium Chloride 0.9% 250 ML 250 ML ONE (15:20)
[2024-08-31] MEDS ORDERED: Cyclobenzaprine 10 MG TAB PO PRN (15:50)
[2024-08-31] MEDS ORDERED: Mag-Al 1200 mg/1200 mg/30 ML UDCUP PO PRN (15:50)
[2024-08-31] MEDS ORDERED: Acetaminophen 325 MG TAB PO PRN (15:50)
[2024-08-31] MEDS ORDERED: Milk Of Magnesia 30 ML UDCUP PO PRN (15:50)
[2024-08-31] MEDS ORDERED: Benzocaine/Menthol 1 LOZ LOZ PO PRN (15:56)
[2024-08-31] MEDS ORDERED: hydrALAZINE 20 MG/ML VIAL SLOW IVP PRN (15:56)
[2024-08-31] MEDS ORDERED: Phenol 177 ML BOT PO PRN (15:56)
[2024-08-31] MEDS ORDERED: fentaNYL 50 mcg/mL 1 mL Vial ONE (16:31)
[2024-08-31] MEDS: CEFAZOLIN 2 GM in Sodium Chloride 0.9% 100 ML IVPB SCH (19:02)
[2024-08-31] MEDS: Sodium Chloride 0.9% 1,000 ML IV SCH (20:48)
[2024-09-01 05:28] LABS: #Basophils Less than 0.03 10x3/uL (0.0-0.2); #Eosinophils Less than 0.03 10x3/uL (0.0-0.7); %Basophils 0.2 % (0.0-1.0); %Lymphocytes 19.6 % (21.0-51.0); %Monocytes 9.4 % (0.0-10.0); %Neutrophils 70.4 % (42.0-75.0); Hematocrit 37.7 % (42.0-52.0); Mean Corpuscular HGB CONC 31.8 g/dL (32.0-36.0); Mean Corpuscular Hemoglobin 28.9 pg (27.0-31.0); Mean Corpuscular Volume 90.8 fL (78.0-98.0); Mean Platelet Volume 10.8 fL (7.4-10.4); Platelet Count 136 10x3/uL (130-400); Red Blood Cell (RBC) Count 4.15 mill/uL (4.70-6.10)
[2024-09-01 06:16] LABS: Anion Gap 13 mmol/L (10-20); BUN (Urea Nitrogen) 28 mg/dL (8.4-25.7); Calc. Creatinine Clearance 98 mL/min (70-130); Carbon Dioxide 20 mmol/L (23-31); Chloride 107 mmol/L (98-107); Estimated GFR 78; Glucose 197 mg/dL (83-110); Potassium 4.4 mmol/L (3.5-5.1); Sodium 136 mmol/L (136-145)
[2024-09-01] MEDS ORDERED: Fentanyl 100 MCG/2 ML VIAL SLOW IVP PRN (08:23)
[2024-09-01] MEDS ORDERED: Diazepam 5 MG TAB PO PRN (08:23)
[2024-09-01] MEDS: Docusate 100 MG CAP PO SCH (09:26)
[2024-09-01] MEDS: Lorazepam 1 MG TAB PO SCH (09:27)
[2024-09-01] MEDS: HYDROcodone/Acetaminophen 10/325 mg Tablet PO PRN (09:33)
[2024-09-01] MEDS: Lorazepam 0.5 MG TAB PO SCH (19:58)
[2024-09-01] MEDS ORDERED: Lorazepam 1 MG TAB PO SCH (21:00)
[2024-09-02 05:59] LABS: #Basophils 0.03 10x3/uL (0.0-0.2); %Basophils 0.2 % (0.0-1.0); %Eosinophils 1.6 % (0.0-10.0); %Lymphocytes 25.3 % (21.0-51.0); %Monocytes 10.9 % (0.0-10.0); %Neutrophils 61.6 % (42.0-75.0); Hemoglobin 11.8 g/dL (14.0-18.0); Mean Corpuscular HGB CONC 31.1 g/dL (32.0-36.0); Mean Corpuscular Hemoglobin 29.4 pg (27.0-31.0); Mean Corpuscular Volume 94.8 fL (78.0-98.0); Mean Platelet Volume 10.6 fL (7.4-10.4); Platelet Count 117 10x3/uL (130-400); RBC Distribution Width 16.9 % (11.5-14.5); Red Blood Cell (RBC) Count 4.01 mill/uL (4.70-6.10)
[2024-09-02 06:01] LABS: ALT (SGPT) 89 U/L (8-55); AST (SGOT) 105 U/L (5-34); Albumin 2.6 g/dL (3.4-4.8); Alkaline Phosphatase 156 U/L (40-110); Anion Gap 13 mmol/L (10-20); BUN (Urea Nitrogen) 19 mg/dL (8.4-25.7); Bilirubin, Total 0.9 mg/dL (0.2-1.2); Calc. Creatinine Clearance 137 mL/min (70-130); Calcium 8.3 mg/dL (7.8-10.44); Carbon Dioxide 24 mmol/L (23-31); Chloride 103 mmol/L (98-107); Estimated GFR 96; Glucose 92 mg/dL (83-110); Potassium 4.1 mmol/L (3.5-5.1); Protein, Total 6.6 g/dL (5.8-8.1); Sodium 136 mmol/L (136-145)
[2024-09-02] MEDS: diphenhydrAMINE 50 MG/ML VIAL IVP PRN (08:32)
[2024-09-02] MEDS: Polyethylene Glycol 3350 17 GM Packet PO SCH (08:34)
[2024-09-02] MEDS: Enoxaparin 40 MG (0.4 mL) SYRINGE SC SCH (10:05)
[2024-09-02] MEDS ORDERED: Acetaminophen 500 MG TAB PO PRN (11:48)
[2024-09-03] MEDS: HYDROcodone/Acetaminophen 5/325 mg Tablet PO PRN (00:55)
[2024-09-03 06:07] LABS: #Basophils 0.04 10x3/uL (0.0-0.2); %Basophils 0.4 % (0.0-1.0); %Lymphocytes 19.9 % (21.0-51.0); %Monocytes 9.6 % (0.0-10.0); %Neutrophils 68.7 % (42.0-75.0); Hematocrit 34.4 % (42.0-52.0); Hemoglobin 11.1 g/dL (14.0-18.0); Mean Corpuscular HGB CONC 32.3 g/dL (32.0-36.0); Mean Corpuscular Hemoglobin 29.1 pg (27.0-31.0); Mean Corpuscular Volume 90.3 fL (78.0-98.0); Mean Platelet Volume 10.4 fL (7.4-10.4); Platelet Count 125 10x3/uL (130-400); RBC Distribution Width 16.5 % (11.5-14.5); Red Blood Cell (RBC) Count 3.81 mill/uL (4.70-6.10)
[2024-09-03 06:18] LABS: ALT (SGPT) 84 U/L (8-55); AST (SGOT) 117 U/L (5-34); Albumin 2.3 g/dL (3.4-4.8); Alkaline Phosphatase 159 U/L (40-110); Anion Gap 13 mmol/L (10-20); BUN (Urea Nitrogen) 14 mg/dL (8.4-25.7); Bilirubin, Total 1.2 mg/dL (0.2-1.2); Calc. Creatinine Clearance 136 mL/min (70-130); Calcium 8.3 mg/dL (7.8-10.44); Carbon Dioxide 22 mmol/L (23-31); Chloride 104 mmol/L (98-107); Estimated GFR 95; Glucose 114 mg/dL (83-110); Potassium 4.1 mmol/L (3.5-5.1); Protein, Total 6.3 g/dL (5.8-8.1); Sodium 135 mmol/L (136-145)
[2024-09-03] MEDS: Nicotine 21 MG PATCH TD SCH (11:57)
[2024-09-04] MEDS: Acetaminophen/Codeine 30-300mg Tablet PO PRN (02:07)
[2024-09-04 05:06] LABS: #Basophils 0.03 10x3/uL (0.0-0.2); #Eosinophils Less than 0.03 10x3/uL (0.0-0.7); %Basophils 0.2 % (0.0-1.0); %Eosinophils 0.1 % (0.0-10.0); %Lymphocytes 10.8 % (21.0-51.0); %Neutrophils 81.4 % (42.0-75.0); Hematocrit 37.8 % (42.0-52.0); Hemoglobin 12.1 g/dL (14.0-18.0); Mean Corpuscular Hemoglobin 29.7 pg (27.0-31.0); Mean Corpuscular Volume 92.6 fL (78.0-98.0); Mean Platelet Volume 10.7 fL (7.4-10.4); Platelet Count 168 10x3/uL (130-400); RBC Distribution Width 16.4 % (11.5-14.5); Red Blood Cell (RBC) Count 4.08 mill/uL (4.70-6.10)
[2024-09-04 05:47] LABS: ALT (SGPT) 117 U/L (8-55); AST (SGOT) 171 U/L (5-34); Albumin 2.4 g/dL (3.4-4.8); Alkaline Phosphatase 195 U/L (40-110); Anion Gap 18 mmol/L (10-20); BUN (Urea Nitrogen) 15 mg/dL (8.4-25.7); Bilirubin, Total 1.3 mg/dL (0.2-1.2); Calc. Creatinine Clearance 129 mL/min (70-130); Calcium 8.5 mg/dL (7.8-10.44); Carbon Dioxide 19 mmol/L (23-31); Chloride 102 mmol/L (98-107); Estimated GFR 94; Globulin 4.6 g/dL (2.4-3.5); Glucose 123 mg/dL (83-110); Potassium 4.7 mmol/L (3.5-5.1); Sodium 134 mmol/L (136-145)
[2024-09-04] MEDS: Nicotine 21 MG PATCH TD SCH (09:35)
[2024-09-04 11:35] LABS: Hep C IgG Ab Reflex HepC Qnt S/CO (NonReactive); Hep C Index 15.35 S/CO (0-0.79)
[2024-09-04] MEDS: Insulin Lispro 100 UNIT/ML 10 ML VIAL SC PRN (13:49)
[2024-09-05] MEDS: diphenhydrAMINE 25 MG CAP PO PRN (01:45)
[2024-09-05 05:56] LABS: #Basophils 0.03 10x3/uL (0.0-0.2); %Basophils 0.4 % (0.0-1.0); %Monocytes 12.2 % (0.0-10.0); %Neutrophils 63.1 % (42.0-75.0); Hematocrit 33.5 % (42.0-52.0); Mean Corpuscular HGB CONC 32.8 g/dL (32.0-36.0); Mean Corpuscular Hemoglobin 29.6 pg (27.0-31.0); Mean Corpuscular Volume 90.3 fL (78.0-98.0); Mean Platelet Volume 10.7 fL (7.4-10.4); Platelet Count 167 10x3/uL (130-400); RBC Distribution Width 16.6 % (11.5-14.5); Red Blood Cell (RBC) Count 3.71 mill/uL (4.70-6.10)
[2024-09-05 06:18] LABS: ALT (SGPT) 104 U/L (8-55); AST (SGOT) 124 U/L (5-34); Albumin 2.2 g/dL (3.4-4.8); Alkaline Phosphatase 178 U/L (40-110); Anion Gap 12 mmol/L (10-20); BUN (Urea Nitrogen) 15 mg/dL (8.4-25.7); Bilirubin, Total 0.9 mg/dL (0.2-1.2); Calc. Creatinine Clearance 148 mL/min (70-130); Calcium 8.4 mg/dL (7.8-10.44); Carbon Dioxide 24 mmol/L (23-31); Chloride 102 mmol/L (98-107); Estimated GFR 98; Globulin 4.3 g/dL (2.4-3.5); Glucose 111 mg/dL (83-110); Potassium 3.7 mmol/L (3.5-5.1); Protein, Total 6.5 g/dL (5.8-8.1); Sodium 134 mmol/L (136-145)
[2024-09-06 04:54] LABS: #Basophils 0.03 10x3/uL (0.0-0.2); %Basophils 0.2 % (0.0-1.0); %Eosinophils 1.1 % (0.0-10.0); %Lymphocytes 17.2 % (21.0-51.0); %Neutrophils 71.3 % (42.0-75.0); Hematocrit 34.8 % (42.0-52.0); Hemoglobin 11.6 g/dL (14.0-18.0); Mean Corpuscular HGB CONC 33.3 g/dL (32.0-36.0); Platelet Count 227 10x3/uL (130-400); RBC Distribution Width 16.2 % (11.5-14.5)
[2024-09-06 05:22] LABS: ALT (SGPT) 97 U/L (8-55); AST (SGOT) 107 U/L (5-34); Albumin 2.2 g/dL (3.4-4.8); Alkaline Phosphatase 188 U/L (40-110); Anion Gap 12 mmol/L (10-20); BUN (Urea Nitrogen) 14 mg/dL (8.4-25.7); Bilirubin, Total 0.9 mg/dL (0.2-1.2); Calc. Creatinine Clearance 155 mL/min (70-130); Calcium 8.5 mg/dL (7.8-10.44); Carbon Dioxide 23 mmol/L (23-31); Chloride 100 mmol/L (98-107); Estimated GFR 99; Globulin 4.6 g/dL (2.4-3.5); Glucose 55 mg/dL (83-110); Potassium 3.7 mmol/L (3.5-5.1); Protein, Total 6.8 g/dL (5.8-8.1); Sodium 131 mmol/L (136-145)
[2024-09-06] MEDS: Loratadine 10 MG TAB PO SCH (08:20)
[2024-09-06 22:14] LABS: HCV RNA, log10 5.579 (.); Hep C PCR-Quant 379000 IU/mL (.)
[2024-09-07 05:05] LABS: #Basophils 0.03 10x3/uL (0.0-0.2); %Basophils 0.3 % (0.0-1.0); %Eosinophils 0.5 % (0.0-10.0); %Lymphocytes 16.9 % (21.0-51.0); %Monocytes 8.6 % (0.0-10.0); %Neutrophils 73.2 % (42.0-75.0); Hemoglobin 12.2 g/dL (14.0-18.0); Mean Corpuscular Hemoglobin 29.3 pg (27.0-31.0); Mean Corpuscular Volume 88.9 fL (78.0-98.0); Mean Platelet Volume 10.3 fL (7.4-10.4); Platelet Count 168 10x3/uL (130-400); RBC Distribution Width 16.2 % (11.5-14.5); Red Blood Cell (RBC) Count 4.16 mill/uL (4.70-6.10)
[2024-09-07 05:23] LABS: ALT (SGPT) 88 U/L (8-55); AST (SGOT) 98 U/L (5-34); Albumin 2.1 g/dL (3.4-4.8); Alkaline Phosphatase 210 U/L (40-110); Anion Gap 14 mmol/L (10-20); BUN (Urea Nitrogen) 12 mg/dL (8.4-25.7); Bilirubin, Total 0.9 mg/dL (0.2-1.2); Calc. Creatinine Clearance 143 mL/min (70-130); Calcium 8.6 mg/dL (7.8-10.44); Carbon Dioxide 21 mmol/L (23-31); Chloride 100 mmol/L (98-107); Estimated GFR 97; Globulin 4.6 g/dL (2.4-3.5); Glucose 140 mg/dL (83-110); Potassium 4.2 mmol/L (3.5-5.1); Protein, Total 6.7 g/dL (5.8-8.1); Sodium 131 mmol/L (136-145)
[2024-09-07] MEDS: Insulin Glargine 30 UNITS/0.3 ML VIAL SC SCH (09:44)
[2024-09-07 12:25] VITALS: TEMP 98
[2024-09-07 18:25] VITALS: BP 125/64
== END 2024-09-07 12:51 | disposition swing bed (61) | DRG 429 ==
LOC: ERS 15:18 → ERHOLD 20:39 → 2NO 08-27 06:45 → SURG B 08-31 17:27
PROVIDERS: ADMIT Family Medicine; ATTEND Family Medicine
PROC: 0RG10A0 Fusion of Cervical Vertebral Joint with Interbody Fusion Device, Anterior Approach, Anterior Column, Open Approach (ICD-10-PCS; principal; 2024-08-31)
PROC: 0RG1071 Fusion of Cervical Vertebral Joint with Autologous Tissue Substitute, Posterior Approach, Posterior Column, Open Approach (ICD-10-PCS; 2024-08-31)
PROC: 01N10ZZ Release Cervical Nerve, Open Approach (ICD-10-PCS; 2024-08-31)
PROC: 00NW0ZZ Release Cervical Spinal Cord, Open Approach (ICD-10-PCS; 2024-08-31)
DX: S12.400A Unspecified displaced fracture of fifth cervical vertebra, initial encounter for closed fracture (principal); G82.50 Quadriplegia, unspecified; I48.91 Unspecified atrial fibrillation; S14.155A Other incomplete lesion at C5 level of cervical spinal cord, initial encounter; S12.500A Unspecified displaced fracture of sixth cervical vertebra, initial encounter for closed fracture; I11.0 Hypertensive heart disease with heart failure; I50.9 Heart failure, unspecified; E11.40 Type 2 diabetes mellitus with diabetic neuropathy, unspecified; I45.10 Unspecified right bundle-branch block; I49.3 Ventricular premature depolarization; I45.81 Long QT syndrome; I48.0 Paroxysmal atrial fibrillation; M50.30 Other cervical disc degeneration, unspecified cervical region; F03.90 Unspecified dementia, unspecified severity, without behavioral disturbance, psychotic disturbance, mood disturbance, and anxiety; T42.4X5A Adverse effect of benzodiazepines, initial encounter; M54.16 Radiculopathy, lumbar region; M45.2 Ankylosing spondylitis of cervical region; I25.10 Atherosclerotic heart disease of native coronary artery without angina pectoris; Z95.5 Presence of coronary angioplasty implant and graft; K21.9 Gastro-esophageal reflux disease without esophagitis; Z98.890 Other specified postprocedural states; Z90.49 Acquired absence of other specified parts of digestive tract; Z88.8 Allergy status to other drugs, medicaments and biological substances; Z79.899 Other long term (current) drug therapy; Z79.82 Long term (current) use of aspirin; Z79.4 Long term (current) use of insulin; W19.XXXA Unspecified fall, initial encounter
CPT/HCPCS: 36415; 36416; 70450; 71045; 72040; 80048; 80053; 80306; 80307; 81001; 83036; 83605; 83690; 83735; 83880; 84100; 84484; 85025; 86780; 86803; 87389; 87522; 93005; 93306; 93970; 97139; A4314; C1713; C1747; C1889; J1100; J1200; J1650; J1815; J1885; J2250; J2405; J2704; J3010; J3370; J7030; J7050

== ENCOUNTER 2024-09-28 10:13 | Inpatient (IN) | payer MEDICARE ==
[2024-09-28] MEDS ORDERED: Morphine 2 MG/ML VIAL ONE (11:22)
[2024-09-28] MEDS ORDERED: LevoFLOXacin 750 mg/D5W 150 ml Premix Bag ONE (11:22)
[2024-09-28 11:37] LABS: #Basophils 0.03 10x3/uL (0.0-0.2); %Basophils 0.7 % (0.0-1.0); %Eosinophils 2.2 % (0.0-10.0); %Lymphocytes 35.5 % (21.0-51.0); %Monocytes 10.6 % (0.0-10.0); %Neutrophils 50.6 % (42.0-75.0); Hematocrit 39.3 % (42.0-52.0); Hemoglobin 12.5 g/dL (14.0-18.0); Mean Corpuscular HGB CONC 31.8 g/dL (32.0-36.0); Mean Corpuscular Hemoglobin 28.7 pg (27.0-31.0); Mean Corpuscular Volume 90.3 fL (78.0-98.0); Mean Platelet Volume 10.8 fL (7.4-10.4); Platelet Count 148 10x3/uL (130-400); RBC Distribution Width 16.8 % (11.5-14.5); Red Blood Cell (RBC) Count 4.35 mill/uL (4.70-6.10)
[2024-09-28 11:54] LABS: ALT (SGPT) 201 U/L (8-55); AST (SGOT) 228 U/L (5-34); Albumin 2.8 g/dL (3.4-4.8); Alkaline Phosphatase 406 U/L (40-110); Anion Gap 12 mmol/L (10-20); BUN (Urea Nitrogen) 19 mg/dL (8.4-25.7); Bilirubin, Total 0.6 mg/dL (0.2-1.2); Calc. Creatinine Clearance 0 mL/min (70-130); Calcium 8.7 mg/dL (7.8-10.44); Carbon Dioxide 22 mmol/L (23-31); Chloride 108 mmol/L (98-107); Estimated GFR 94; Globulin 4.7 g/dL (2.4-3.5); Glucose 176 mg/dL (83-110); Protein, Total 7.5 g/dL (5.8-8.1); Sodium 138 mmol/L (136-145)
[2024-09-28 11:56] LABS: Prothrombin Time 13.5 sec (12.0-14.7)
[2024-09-28 11:57] LABS: PTT 29.5 sec (22.9-36.1)
[2024-09-28] MEDS ORDERED: Dextrose 5% in Water 1,000 ML IV PRN (13:00)
[2024-09-28] MEDS ORDERED: Dextrose 50% Abboject 50 ML SYRINGE SLOW IVP PRN (13:00)
[2024-09-28] MEDS ORDERED: Glucagon 1 MG/ML KIT IM PRN (13:00)
[2024-09-28] MEDS ORDERED: Insulin Lispro 100 UNIT/ML 10 ML VIAL SC PRN (13:03)
[2024-09-28] MEDS ORDERED: CeleCOXIB 100 MG CAP PO PRN (14:19)
[2024-09-28] MEDS ORDERED: Promethazine HCl 25 MG/ML VIAL IM PRN (14:19)
[2024-09-28] MEDS ORDERED: Polyethylene Glycol 3350 17 GM Packet PO PRN (14:19)
[2024-09-28] MEDS ORDERED: Acetaminophen/Codeine 30-300mg Tablet PO PRN (14:19)
[2024-09-28] MEDS: Morphine 4 MG/ML VIAL SLOW IVP SCH (14:37)
[2024-09-28] MEDS: CEFAZOLIN 2 GM in Sodium Chloride 0.9% 100 ML IVPB SCH (14:38)
[2024-09-28] MEDS: HYDROcodone/Acetaminophen 5/325 mg Tablet PO PRN (17:51)
[2024-09-28] MEDS: Insulin Lispro 100 UNIT/ML 10 ML VIAL SC PRN (17:51)
[2024-09-28] MEDS: Carvedilol 3.125 MG TAB PO SCH (17:51)
[2024-09-28] MEDS: Docusate 100 MG CAP PO SCH (21:46)
[2024-09-28] MEDS: Pregabalin 50 MG CAP PO SCH (21:46)
[2024-09-28] MEDS: Atorvastatin Calcium 40 MG TAB PO SCH (21:47)
[2024-09-29] MEDS: CEFAZOLIN 2 GM VIAL ONE (04:07)
[2024-09-29 07:26] LABS: #Basophils 0.03 10x3/uL (0.0-0.2); %Basophils 0.7 % (0.0-1.0); %Eosinophils 2.8 % (0.0-10.0); %Lymphocytes 47.9 % (21.0-51.0); %Monocytes 15.1 % (0.0-10.0); %Neutrophils 33.5 % (42.0-75.0); Hematocrit 38.3 % (42.0-52.0); Mean Corpuscular HGB CONC 31.3 g/dL (32.0-36.0); Mean Corpuscular Hemoglobin 28.6 pg (27.0-31.0); Mean Corpuscular Volume 91.4 fL (78.0-98.0); Mean Platelet Volume 10.4 fL (7.4-10.4); Platelet Count 121 10x3/uL (130-400); RBC Distribution Width 16.5 % (11.5-14.5); Red Blood Cell (RBC) Count 4.19 mill/uL (4.70-6.10)
[2024-09-29 07:45] LABS: Anion Gap 14 mmol/L (10-20); BUN (Urea Nitrogen) 16 mg/dL (8.4-25.7); Calc. Creatinine Clearance 140 mL/min (70-130); Calcium 8.4 mg/dL (7.8-10.44); Carbon Dioxide 22 mmol/L (23-31); Chloride 108 mmol/L (98-107); Estimated GFR 97; Glucose 157 mg/dL (83-110); Potassium 3.8 mmol/L (3.5-5.1); Sodium 140 mmol/L (136-145)
[2024-09-29] MEDS: Pantoprazole DR 40 MG TAB PO SCH (08:19)
[2024-09-29] MEDS: Empagliflozin 25 MG TAB PO SCH (08:19)
[2024-09-29] MEDS: Loratadine 10 MG TAB PO SCH (08:19)
[2024-09-29] MEDS ORDERED: fentaNYL PF 100 MCG/2 ML SYRINGE ONE (08:22)
[2024-09-29] MEDS ORDERED: Rocuronium Bromide 10 MG/ML (10ML VIAL) ONE (08:22)
[2024-09-29] MEDS ORDERED: Lidocaine 1% PF 5 ML VIAL ONE (08:22)
[2024-09-29] MEDS ORDERED: PROPOFOL 20 ML ONE (08:22)
[2024-09-29] MEDS ORDERED: Vancomycin 1 GM VIAL ONE (09:14)
[2024-09-29] MEDS ORDERED: Thrombin 5000 UNITS/5 ML VIAL ONE (09:14)
[2024-09-29 09:25] VITALS: BMI 33.8
[2024-09-29] MEDS ORDERED: LevoFLOXacin D5W 500 mg (100 mL) BAG ONE (09:48)
[2024-09-29] MEDS ORDERED: ePHEDrine Sulfate 50 MG/10 ML VIAL ONE (10:13)
[2024-09-29] MEDS ORDERED: PHENYLEPHRINE-NS 100 MCG/ML 10 ML SYRINGE ONE (10:58)
[2024-09-29] MEDS ORDERED: Acetaminophen 325 MG TAB PO PRN (11:08)
[2024-09-29] MEDS ORDERED: HYDROmorphone 2 MG/ML VIAL SLOW IVP PRN (11:10)
[2024-09-29] MEDS ORDERED: Morphine Sulfate 2 MG/ML SYRINGE SLOW IVP PRN (11:10)
[2024-09-29] MEDS ORDERED: PACU-Morphine 4MG/ML VIAL SLOW IVP PRN (11:10)
[2024-09-29] MEDS ORDERED: Ondansetron HCl/PF 4 MG/2 ML Vial IVP PRN (11:10)
[2024-09-29] MEDS ORDERED: Promethazine HCl 25 MG/ML VIAL IM PRN (11:10)
[2024-09-29] MEDS ORDERED: diphenhydrAMINE 25 MG CAP PO PRN (11:13)
[2024-09-29] MEDS ORDERED: Milk Of Magnesia 30 ML UDCUP PO PRN (11:13)
[2024-09-29] MEDS ORDERED: SUGAMMADEX SODIUM 200 MG/2 ML VIAL ONE (11:21)
[2024-09-29] MEDS ORDERED: Acetaminophen/Codeine 30-300mg Tablet PO PRN (11:24)
[2024-09-29] MEDS ORDERED: Labetalol HCl 100 MG/20 ML VIAL ONE (11:28)
[2024-09-29] MEDS ORDERED: fentaNYL 50 mcg/mL 1 mL Vial ONE ×4 (11:29→12:15)
[2024-09-29] MEDS: LevoFLOXacin 750 mg/D5W 750 MG in Premix 1 BAG IVPB SCH (12:10)
[2024-09-29] MEDS: Sodium Chloride 0.9% 1,000 ML IV SCH (12:33)
[2024-09-29] MEDS: Morphine 2 MG/ML VIAL SLOW IVP PRN (13:27)
[2024-09-29] MEDS: CEFAZOLIN 2 GM in Sodium Chloride 0.9% 100 ML IVPB SCH (13:28)
[2024-09-29] MEDS: Ketorolac Tromethamine 30 MG (1 mL) VIAL IVP PRN (15:18)
[2024-09-29] MEDS: Cyclobenzaprine 10 MG TAB PO PRN (15:21)
[2024-09-29] MEDS: HYDROcodone/Acetaminophen 5/325 mg Tablet PO PRN (17:36)
[2024-10-01] MEDS ORDERED: Morphine 2 MG/ML VIAL ONE ×3 (09:10→20:21)
[2024-10-01] MEDS ORDERED: Carvedilol 3.125 MG TAB ONE (09:10)
[2024-10-01] MEDS ORDERED: Docusate 100 MG CAP ONE ×2 (09:10→20:21)
[2024-10-01] MEDS ORDERED: Loratadine 10 MG TAB ONE (09:10)
[2024-10-01] MEDS ORDERED: Pantoprazole DR 40 MG TAB ONE (09:10)
[2024-10-01] MEDS ORDERED: Empagliflozin 25 MG TAB ONE (09:10)
[2024-10-01] MEDS ORDERED: Pregabalin 50 MG CAP ONE ×2 (09:10→20:21)
[2024-10-01] MEDS ORDERED: HYDROcodone/Acetaminophen 5/325 mg Tablet ONE ×2 (11:12→23:09)
[2024-10-01] MEDS ORDERED: LevoFLOXacin 750 mg/D5W 150 ml Premix Bag ONE (11:16)
[2024-10-01] MEDS ORDERED: Atorvastatin Calcium 40 MG TAB ONE (20:21)
[2024-10-01] MEDS: Ketorolac Tromethamine 30 MG (1 mL) VIAL ONE (21:07)
[2024-10-01] MEDS: FLU (Fluad Triv) TS24-25 (65UP)/MF59C/PF 45 MCG/0.5 ML Syringe IM ONE (21:48)
[2024-10-01] MEDS ORDERED: Cyclobenzaprine 10 MG TAB ONE (23:09)
[2024-10-02] MEDS ORDERED: Morphine 2 MG/ML VIAL ONE ×2 (02:24→09:32)
[2024-10-02] MEDS ORDERED: Acetaminophen/Codeine 30-300mg Tablet ONE (08:15)
[2024-10-02] MEDS ORDERED: Loratadine 10 MG TAB ONE (08:15)
[2024-10-02] MEDS ORDERED: Docusate 100 MG CAP ONE (08:15)
[2024-10-02] MEDS ORDERED: Cyclobenzaprine 10 MG TAB ONE (08:15)
[2024-10-02] MEDS ORDERED: Carvedilol 3.125 MG TAB ONE (08:15)
[2024-10-02] MEDS ORDERED: Pregabalin 50 MG CAP ONE (08:15)
[2024-10-02] MEDS ORDERED: Empagliflozin 25 MG TAB ONE (08:15)
[2024-10-02] MEDS ORDERED: Pantoprazole DR 40 MG TAB ONE (08:15)
[2024-10-02] MEDS ORDERED: LevoFLOXacin 750 mg/D5W 150 ml Premix Bag ONE (11:06)
[2024-10-02 12:34] LABS: #Basophils Less than 0.03 10x3/uL (0.0-0.2); %Basophils 0.4 % (0.0-1.0); %Lymphocytes 31.3 % (21.0-51.0); %Neutrophils 53.1 % (42.0-75.0); Hematocrit 38.9 % (42.0-52.0); Mean Corpuscular HGB CONC 30.8 g/dL (32.0-36.0); Mean Corpuscular Hemoglobin 28.6 pg (27.0-31.0); Mean Corpuscular Volume 92.6 fL (78.0-98.0); Mean Platelet Volume 11.3 fL (7.4-10.4); Platelet Count 109 10x3/uL (130-400); RBC Distribution Width 16.3 % (11.5-14.5)
[2024-10-02 12:57] LABS: Anion Gap 11 mmol/L (10-20); BUN (Urea Nitrogen) 23 mg/dL (8.4-25.7); Calc. Creatinine Clearance 123 mL/min (70-130); Calcium 8.6 mg/dL (7.8-10.44); Carbon Dioxide 22 mmol/L (23-31); Chloride 108 mmol/L (98-107); Estimated GFR 93; Glucose 188 mg/dL (83-110); Potassium 4.1 mmol/L (3.5-5.1); Sodium 137 mmol/L (136-145)
[2024-10-04 19:55] VITALS: BP 129/76; TEMP 98.4
[2024-10-05] MEDS ORDERED: LevoFLOXacin 750 MG TAB PO SCH (06:00)
== END 2024-10-04 20:30 | DRG 920 ==
LOC: ERS 10:13 → SURG A 13:22
PROVIDERS: ADMIT Family Medicine; ATTEND Family Medicine
PROC: 0HB4XZZ Excision of Neck Skin, External Approach (ICD-10-PCS; principal; 2024-09-29)
DX: T81.31XA Disruption of external operation (surgical) wound, not elsewhere classified, initial encounter (principal); I50.32 Chronic diastolic (congestive) heart failure; I48.91 Unspecified atrial fibrillation; E11.9 Type 2 diabetes mellitus without complications; I11.0 Hypertensive heart disease with heart failure; I49.3 Ventricular premature depolarization; B18.2 Chronic viral hepatitis C; Z88.8 Allergy status to other drugs, medicaments and biological substances; Z79.82 Long term (current) use of aspirin; Z79.4 Long term (current) use of insulin; Z79.899 Other long term (current) drug therapy; Z90.89 Acquired absence of other organs; Z90.49 Acquired absence of other specified parts of digestive tract; Z98.890 Other specified postprocedural states
CPT/HCPCS: 36415; 36416; 72125; 80048; 80053; 83605; 85025; 85610; 85730; 86141; 86850; 86900; 86901; 87040; 96374; 96375; 97139; A6550; J1815; J1885; J1956; J2272; J2704; J3010; J3370

== ENCOUNTER 2024-11-27 00:48 | Inpatient (IN) | payer MEDICARE ==
[2024-11-27] MEDS ORDERED: HYDROcodone/Acetaminophen 5/325 mg Tablet ONE (01:49)
[2024-11-27] MEDS ORDERED: traMADol HCl 50 MG TAB PO PRN (02:50)
[2024-11-27] MEDS ORDERED: Polyethylene Glycol 3350 17 GM Packet PO PRN (02:50)
[2024-11-27] MEDS ORDERED: Dextrose 5% in Water 1,000 ML IV PRN (02:54)
[2024-11-27] MEDS ORDERED: Ondansetron PF 4 MG/2 ML Vial IVP PRN (02:54)
[2024-11-27] MEDS ORDERED: Acetaminophen 325 MG TAB PO PRN (02:54)
[2024-11-27] MEDS ORDERED: Dextrose 50% Abboject 50 ML SYRINGE SLOW IVP PRN (02:54)
[2024-11-27] MEDS ORDERED: Glucagon 1 MG/ML KIT IM PRN (02:54)
[2024-11-27] MEDS ORDERED: Insulin Lispro 100 UNIT/ML 10 ML VIAL SC PRN (02:54)
[2024-11-27 03:07] LABS: Troponin I 0.111 ng/mL (< 0.028)
[2024-11-27 04:08] VITALS: BMI 29.3
[2024-11-27] MEDS: Amiodarone 450 MG in Dextrose 5% in Water 250 ML IVPB SCH (04:38)
[2024-11-27] MEDS: HYDROcodone/Acetaminophen 5/325 mg Tablet PO PRN (05:26)
[2024-11-27 05:30] LABS: #Basophils 0.03 10x3/uL (0.0-0.2); #Eosinophils Less than 0.03 10x3/uL (0.0-0.7); %Basophils 0.3 % (0.0-1.0); %Eosinophils 0.2 % (0.0-10.0); %Lymphocytes 37.5 % (21.0-51.0); %Monocytes 10.2 % (0.0-10.0); %Neutrophils 51.5 % (42.0-75.0); Hematocrit 40.1 % (42.0-52.0); Hemoglobin 12.5 g/dL (14.0-18.0); Mean Corpuscular HGB CONC 31.2 g/dL (32.0-36.0); Mean Corpuscular Hemoglobin 26.4 pg (27.0-31.0); Mean Corpuscular Volume 84.8 fL (78.0-98.0); Platelet Count 136 10x3/uL (130-400); RBC Distribution Width 16.4 % (11.5-14.5); Red Blood Cell (RBC) Count 4.73 mill/uL (4.70-6.10)
[2024-11-27] MEDS: Insulin Lispro 100 UNIT/ML 10 ML VIAL SC PRN (05:38)
[2024-11-27 06:17] LABS: Troponin I 0.106 ng/mL (< 0.028)
[2024-11-27 06:47] LABS: ALT (SGPT) 117 U/L (Less than 45); AST (SGOT) 91 U/L (11-34); Albumin 3.1 g/dL (3.1-4.5); Alkaline Phosphatase 139 U/L (40-110); BUN (Urea Nitrogen) 25 mg/dL (8.4-25.7); Bilirubin, Total 1.2 mg/dL (0.3-1.2); Calc. Creatinine Clearance 85 mL/min (70-130); Calcium 8.9 mg/dL (7.8-10.44); Carbon Dioxide 20 mmol/L (23-31); Estimated GFR 79; Globulin 4.4 g/dL (2.4-3.5); Glucose 247 mg/dL (83-110); Protein, Total 7.5 g/dL (5.8-8.1)
[2024-11-27] MEDS: Insulin Glargine 30 UNITS/0.3 ML VIAL SC SCH (08:13)
[2024-11-27] MEDS: Carvedilol 3.125 MG TAB PO SCH (08:14)
[2024-11-27] MEDS: Aspirin 81 mg Enteric Coated Tablet PO SCH (08:14)
[2024-11-27] MEDS: Empagliflozin 25 MG TAB PO SCH (08:14)
[2024-11-27] MEDS: Loratadine 10 MG TAB PO SCH (08:14)
[2024-11-27] MEDS: Escitalopram Oxalate 20 mg Tablet PO SCH (08:14)
[2024-11-27] MEDS: Lisinopril 5 MG TAB PO SCH (08:14)
[2024-11-27] MEDS: Pregabalin 50 MG CAP PO SCH (08:14)
[2024-11-27] MEDS: Pantoprazole 40 MG DR.TAB PO SCH (08:14)
[2024-11-27] MEDS: Heparin 5,000 UNITS/ML VIAL SC SCH (08:17)
[2024-11-27 08:36] LABS: Anion Gap 16 mmol/L (10-20); Chloride 107 mmol/L (98-107); Potassium 3.6 mmol/L (3.5-5.1); Sodium 137 mmol/L (136-145)
[2024-11-27] MEDS: Finasteride 5 MG TAB PO SCH (08:39)
[2024-11-27] MEDS: Amiodarone 200 MG TAB PO SCH (15:07)
[2024-11-27] MEDS: Atorvastatin Calcium 40 MG TAB PO SCH (21:49)
[2024-11-27] MEDS: Lorazepam 0.5 MG TAB PO PRN (21:50)
[2024-11-28 20:30] VITALS: BMI 29.3
[2024-11-29] MEDS: HYDROcodone/Acetaminophen 5/325 mg Tablet PO PRN (09:05)
[2024-11-29] MEDS ORDERED: Regadenoson 0.4 MG/5 ML SYRINGE ONE (09:11)
[2024-11-29] MEDS: Senokot S 8.6-50 MG TAB PO PRN (22:30)
[2024-11-30] MEDS: Morphine 2 MG/ML VIAL SLOW IVP PRN (00:40)
[2024-12-01] MEDS ORDERED: Heparin 10,000 UNITS/ 10 ML VIAL ONE (06:38)
[2024-12-01] MEDS ORDERED: Heparin 25,000 units/D5W 0 ML ONE (06:38)
[2024-12-01] MEDS ORDERED: Isoproterenol 0.2 MG/1 ML AMP ONE (06:39)
[2024-12-01] MEDS ORDERED: Midazolam HCl 2 mg/2 ml Vial ONE (07:03)
[2024-12-01] MEDS ORDERED: PROPOFOL 20 ML ONE (07:03)
[2024-12-01] MEDS ORDERED: Dexamethasone 20 MG/5 ML VIAL ONE (07:32)
[2024-12-01] MEDS ORDERED: Ondansetron PF 4 MG/2 ML Vial ONE (07:32)
[2024-12-01] MEDS ORDERED: fentaNYL PF 100 MCG/2 ML SYRINGE ONE (07:32)
[2024-12-01] MEDS ORDERED: PHENYLEPHRINE-NS 100 MCG/ML 10 ML SYRINGE ONE (07:33)
[2024-12-01] MEDS ORDERED: ePHEDrine Sulfate 50 MG/10 ML VIAL ONE (07:52)
[2024-12-01] MEDS ORDERED: SUCCINYLCHOLINE/SOD CL,ISO/PF 200 MG/10 ML SYRINGE FS ONE (07:52)
[2024-12-01] MEDS ORDERED: Rocuronium Bromide 10 MG/ML (10ML VIAL) ONE (07:52)
[2024-12-01] MEDS ORDERED: Phenylephrine 10 MG/ML VIAL ONE (08:55)
[2024-12-01] MEDS ORDERED: SUGAMMADEX SODIUM 200 MG/2 ML VIAL ONE (09:42)
[2024-12-01] MEDS: Amiodarone 200 MG TAB PO SCH (18:18)
[2024-12-02 07:49] LABS: Calcium 8.7 mg/dL (7.8-10.44); Chloride 107 mmol/L (98-107); Potassium 4.2 mmol/L (3.5-5.1); Sodium 136 mmol/L (136-145)
[2024-12-02 07:50] LABS: Globulin 4.2 g/dL (2.4-3.5); Glucose 110 mg/dL (83-110); Protein, Total 7.2 g/dL (5.8-8.1)
[2024-12-02 07:51] LABS: Anion Gap 12 mmol/L (10-20); Carbon Dioxide 21 mmol/L (23-31)
[2024-12-02 07:52] LABS: #Basophils Less than 0.03 10x3/uL (0.0-0.2); #Eosinophils Less than 0.03 10x3/uL (0.0-0.7); %Basophils 0.1 % (0.0-1.0); %Lymphocytes 32.2 % (21.0-51.0); %Monocytes 7.1 % (0.0-10.0); %Neutrophils 60.3 % (42.0-75.0); Anion Gap 13 mmol/L (10-20); BUN (Urea Nitrogen) 19 mg/dL (8.4-25.7); Calc. Creatinine Clearance 99 mL/min (70-130); Calcium 8.9 mg/dL (7.8-10.44); Carbon Dioxide 20 mmol/L (23-31); Chloride 107 mmol/L (98-107); Estimated GFR 91; Glucose 110 mg/dL (83-110); Hematocrit 38.4 % (42.0-52.0); Hemoglobin 11.6 g/dL (14.0-18.0); Mean Corpuscular HGB CONC 30.2 g/dL (32.0-36.0); Mean Corpuscular Volume 86.1 fL (78.0-98.0); Mean Platelet Volume 10.2 fL (7.4-10.4); Platelet Count 121 10x3/uL (130-400); Potassium 4.2 mmol/L (3.5-5.1); RBC Distribution Width 16.8 % (11.5-14.5); Red Blood Cell (RBC) Count 4.46 mill/uL (4.70-6.10); Sodium 136 mmol/L (136-145)
[2024-12-02 07:53] LABS: #Basophils Less than 0.03 10x3/uL (0.0-0.2); #Eosinophils Less than 0.03 10x3/uL (0.0-0.7); %Basophils 0.1 % (0.0-1.0); %Lymphocytes 31.6 % (21.0-51.0); %Monocytes 7.4 % (0.0-10.0); %Neutrophils 60.6 % (42.0-75.0); Alkaline Phosphatase 131 U/L (40-110); Bilirubin, Total 0.7 mg/dL (0.3-1.2); Hematocrit 38.6 % (42.0-52.0); Hemoglobin 11.8 g/dL (14.0-18.0); Mean Corpuscular HGB CONC 30.6 g/dL (32.0-36.0); Mean Corpuscular Hemoglobin 26.1 pg (27.0-31.0); Mean Corpuscular Volume 85.4 fL (78.0-98.0); Platelet Count 124 10x3/uL (130-400); RBC Distribution Width 16.6 % (11.5-14.5); Red Blood Cell (RBC) Count 4.52 mill/uL (4.70-6.10)
[2024-12-02 07:54] LABS: BUN (Urea Nitrogen) 19 mg/dL (8.4-25.7); Calc. Creatinine Clearance 101 mL/min (70-130); Estimated GFR 92
[2024-12-02 07:56] LABS: ALT (SGPT) 100 U/L (Less than 45); AST (SGOT) 92 U/L (11-34)
[2024-12-02] MEDS ORDERED: Gentamicin 80 MG/2 ML VIAL ONE (10:42)
[2024-12-02] MEDS ORDERED: Lidocaine 1% (PF) 30 ML VIAL ONE (10:43)
[2024-12-02] MEDS ORDERED: CEFAZOLIN 2 GM VIAL ONE (10:43)
[2024-12-02] MEDS ORDERED: fentaNYL 50 mcg/mL 1 mL Vial ONE ×4 (12:45→13:37)
[2024-12-02] MEDS ORDERED: Midazolam HCl 2 mg/2 ml Vial ONE ×2 (12:45→13:02)
[2024-12-02] MEDS ORDERED: HYDROcodone/Acetaminophen 5/325 mg Tablet PO PRN (14:02)
[2024-12-02] MEDS ORDERED: Acetaminophen/Codeine 30-300mg Tablet PO PRN (14:02)
[2024-12-02] MEDS ORDERED: Lorazepam 1 MG TAB PO PRN (15:55)
[2024-12-02] MEDS: Cephalexin 250 MG CAP PO SCH (16:27)
[2024-12-03 21:53] VITALS: BP 141/66; TEMP 98
== END 2024-12-03 21:30 | disposition home or self-care (01) | DRG 277 ==
LOC: ERS 00:48 → 2SE 02:51
PROVIDERS: ADMIT Student in an Organized Health Care Education/Training Program; ATTEND Family Medicine
PROC: 0JH608Z Insertion of Defibrillator Generator into Chest Subcutaneous Tissue and Fascia, Open Approach (ICD-10-PCS; principal; 2024-12-01)
PROC: 02H63KZ Insertion of Defibrillator Lead into Right Atrium, Percutaneous Approach (ICD-10-PCS; 2024-12-01)
PROC: 02HK3KZ Insertion of Defibrillator Lead into Right Ventricle, Percutaneous Approach (ICD-10-PCS; 2024-12-01)
DX: I47.20 Ventricular tachycardia, unspecified (principal); I13.0 Hypertensive heart and chronic kidney disease with heart failure and stage 1 through stage 4 chronic kidney disease, or unspecified chronic kidney disease; I50.42 Chronic combined systolic (congestive) and diastolic (congestive) heart failure; I48.91 Unspecified atrial fibrillation; R53.81 Other malaise; N18.9 Chronic kidney disease, unspecified; I48.92 Unspecified atrial flutter; I49.9 Cardiac arrhythmia, unspecified; E11.40 Type 2 diabetes mellitus with diabetic neuropathy, unspecified; B19.20 Unspecified viral hepatitis C without hepatic coma; J44.9 Chronic obstructive pulmonary disease, unspecified; Z88.8 Allergy status to other drugs, medicaments and biological substances; Z98.890 Other specified postprocedural states; Z90.49 Acquired absence of other specified parts of digestive tract; Z90.89 Acquired absence of other organs
CPT/HCPCS: 33249; 36415; 36416; 71045; 78452; 80053; 82550; 84443; 84484; 85025; 93005; 93010; 93017; 93613; 93620; 93621; 93623; 96374; 99152; 99153; A9502; C1721; C1730; C1760; C1763; C1769; C1894; C1895; C1898; J0282; J1100; J1580; J1644; J1815; J2250; J2272; J2371; J2405; J2704; J2785; J3010; J7070

== ENCOUNTER 2025-05-20 22:03 | Inpatient (IN) | payer OTHER ==
[~2025-05-20 22:03] MED LIST changes: -Iopamidol-370 76% 500 ML 1 ML ONE; +Iopamidol-370 76% 500 ML MDV (1 ML CHARGE) ONE
[2025-05-20 22:53] LABS: ALT (SGPT) 107 U/L (Less than 45); AST (SGOT) 85 U/L (11-34); Albumin 3.0 g/dL (3.1-4.5); Alkaline Phosphatase 172 U/L (40-110); Anion Gap 13 mmol/L (10-20); BUN (Urea Nitrogen) 14 mg/dL (8.4-25.7); Bilirubin, Total 0.7 mg/dL (0.3-1.2); CK (CPK) 43 U/L (30-200); Calc. Creatinine Clearance 0 mL/min (70-130); Calcium 8.6 mg/dL (7.8-10.44); Carbon Dioxide 25 mmol/L (23-31); Chloride 105 mmol/L (98-107); Globulin 4.1 g/dL (2.4-3.5); Glucose 172 mg/dL (83-110); Magnesium 1.7 mg/dL (1.6-2.6); Potassium 3.7 mmol/L (3.5-5.1); Sodium 139 mmol/L (136-145)
[2025-05-20 23:00] LABS: #Basophils Less than 0.03 10x3/uL (0.0-0.2); #Eosinophils 0.07 10x3/uL (0.0-0.7); #Monocytes 0.52 10x3/uL (0.11-0.59); #Neutrophils 2.75 10x3/uL (1.40-6.50); %Basophils 0.3 % (0.0-1.0); %Eosinophils 1.1 % (0.0-10.0); %Lymphocytes 45.0 % (21.0-51.0); %Monocytes 8.5 % (0.0-10.0); %Neutrophils 44.8 % (42.0-75.0); Hematocrit 35.9 % (42.0-52.0); Hemoglobin 11.9 g/dL (14.0-18.0); Mean Corpuscular Hemoglobin 29.8 pg (27.0-31.0); Mean Corpuscular Volume 90.0 fL (78.0-98.0); Platelet Count 111 10x3/uL (130-400); Red Blood Cell (RBC) Count 3.99 mill/uL (4.70-6.10); White Blood Cell (WBC) Count 6.15 10x3/uL (4.8-10.8)
[2025-05-20 23:01] LABS: Troponin I 0.264 ng/mL (< 0.028)
[2025-05-20 23:06] LABS: Bacteria/HPF None Seen HPF (None Seen); CAUTI Indications for Culture Alt mental st,lethar; Glucose, Urine (Dipstick) Normal (Negative); Leukocyte Negative Leu/uL (Negative); Protein, Urine (Dipstick) 10 mg/dL (Neg-Trace); RBC/HPF 0-3 HPF (0-3); Specific Gravity, Urine 1.022 (1.002-1.036); WBC/HPF 0-3 HPF (0-3)
[2025-05-20 23:07] LABS: Urine Culture Reflex No No
[2025-05-20 23:17] LABS: Actual Bicarbonate (HCO3v) 18.2 mEq/L (22-28); Base Excess -1.5 mEq/L (-2.0 to +3.0); Calcium, Ionized (venous) 0.96 mmol/L (1.16-1.32); Chloride (VBG) 104 mmol/L (98-106); Hematocrit-VBG 34 % (42.0-52.0); Hemoglobin (Hb) 11.4 g/dL (12.6-17.4); Potassium (VBG) 3.32 mmol/L (3.70-5.30); Sodium 135 mmol/L (133-146)
[2025-05-21] MEDS ORDERED: Dextrose 50% Abboject 50 ML SYRINGE SLOW IVP PRN (02:56)
[2025-05-21] MEDS ORDERED: Glucagon 1 MG/ML KIT IM PRN (02:56)
[2025-05-21 04:45] LABS: #Basophils Less than 0.03 10x3/uL (0.0-0.2); #Eosinophils 0.10 10x3/uL (0.0-0.7); #Monocytes 0.44 10x3/uL (0.11-0.59); #Neutrophils 1.63 10x3/uL (1.40-6.50); %Basophils 0.5 % (0.0-1.0); %Eosinophils 2.4 % (0.0-10.0); %Lymphocytes 48.0 % (21.0-51.0); %Monocytes 10.4 % (0.0-10.0); %Neutrophils 38.5 % (42.0-75.0); Hematocrit 35.0 % (42.0-52.0); Hemoglobin 11.2 g/dL (14.0-18.0); Mean Corpuscular Hemoglobin 29.8 pg (27.0-31.0); Mean Corpuscular Volume 93.1 fL (78.0-98.0); Platelet Count 89 10x3/uL (130-400); Red Blood Cell (RBC) Count 3.76 mill/uL (4.70-6.10); White Blood Cell (WBC) Count 4.23 10x3/uL (4.8-10.8)
[2025-05-21 04:50] LABS: Anion Gap 11 mmol/L (10-20); BUN (Urea Nitrogen) 11 mg/dL (8.4-25.7); Calc. Creatinine Clearance 0 mL/min (70-130); Calcium 8.1 mg/dL (7.8-10.44); Carbon Dioxide 22 mmol/L (23-31); Chloride 109 mmol/L (98-107); Glucose 135 mg/dL (83-110); Potassium 3.4 mmol/L (3.5-5.1); Sodium 139 mmol/L (136-145)
[2025-05-21 04:53] LABS: Critical Call Chem Troponin I RESULT DECREASING; Troponin I 0.253 ng/mL (< 0.028)
[2025-05-21 06:50] LABS: Critical Call Chem Troponin I RESULT DECREASING; Troponin I 0.207 ng/mL (< 0.028)
[2025-05-21 06:55] VITALS: BMI 27.3
[2025-05-21] MEDS ORDERED: Aspirin Chewable 81 MG TAB PO SCH (09:00)
[2025-05-21] MEDS: Aspirin Chewable 81 MG TAB PO SCH (10:22)
[2025-05-21] MEDS: Enoxaparin 40 MG (0.4 mL) SYRINGE SC SCH (10:23)
[2025-05-21] MEDS: Pantoprazole 40 MG DR.TAB PO SCH (10:23)
[2025-05-21] MEDS: Melatonin 3 MG TAB PO PRN (21:44)
[2025-05-22 04:57] LABS: #Basophils Less than 0.03 10x3/uL (0.0-0.2); #Eosinophils 0.20 10x3/uL (0.0-0.7); #Monocytes 0.32 10x3/uL (0.11-0.59); #Neutrophils 2.09 10x3/uL (1.40-6.50); %Basophils 0.5 % (0.0-1.0); %Eosinophils 5.0 % (0.0-10.0); %Lymphocytes 34.1 % (21.0-51.0); %Monocytes 8.0 % (0.0-10.0); %Neutrophils 52.4 % (42.0-75.0); Hematocrit 33.6 % (42.0-52.0); Hemoglobin 10.7 g/dL (14.0-18.0); Mean Corpuscular Hemoglobin 29.3 pg (27.0-31.0); Mean Corpuscular Volume 92.1 fL (78.0-98.0); Platelet Count 90 10x3/uL (130-400); Red Blood Cell (RBC) Count 3.65 mill/uL (4.70-6.10); White Blood Cell (WBC) Count 3.99 10x3/uL (4.8-10.8)
[2025-05-22 05:13] LABS: Anion Gap 13 mmol/L (10-20); BUN (Urea Nitrogen) 12 mg/dL (8.4-25.7); Calc. Creatinine Clearance 107 mL/min (70-130); Calcium 8.4 mg/dL (7.8-10.44); Carbon Dioxide 23 mmol/L (23-31); Chloride 108 mmol/L (98-107); Glucose 128 mg/dL (83-110); Potassium 3.9 mmol/L (3.5-5.1); Sodium 140 mmol/L (136-145)
[2025-05-22 13:52] VITALS: BMI 27.3
[2025-05-23 05:30] LABS: #Basophils Less than 0.03 10x3/uL (0.0-0.2); #Eosinophils 0.22 10x3/uL (0.0-0.7); #Monocytes 0.36 10x3/uL (0.11-0.59); #Neutrophils 1.96 10x3/uL (1.40-6.50); %Basophils 0.4 % (0.0-1.0); %Eosinophils 4.8 % (0.0-10.0); %Lymphocytes 44.0 % (21.0-51.0); %Monocytes 7.8 % (0.0-10.0); %Neutrophils 42.8 % (42.0-75.0); Hematocrit 33.1 % (42.0-52.0); Hemoglobin 10.7 g/dL (14.0-18.0); Mean Corpuscular Hemoglobin 29.8 pg (27.0-31.0); Mean Corpuscular Volume 92.2 fL (78.0-98.0); Platelet Count 84 10x3/uL (130-400); Red Blood Cell (RBC) Count 3.59 mill/uL (4.70-6.10); White Blood Cell (WBC) Count 4.59 10x3/uL (4.8-10.8)
[2025-05-23 05:41] LABS: Anion Gap 12 mmol/L (10-20); BUN (Urea Nitrogen) 10 mg/dL (8.4-25.7); Calc. Creatinine Clearance 113 mL/min (70-130); Calcium 8.3 mg/dL (7.8-10.44); Carbon Dioxide 22 mmol/L (23-31); Chloride 106 mmol/L (98-107); Glucose 128 mg/dL (83-110); Potassium 3.5 mmol/L (3.5-5.1); Sodium 136 mmol/L (136-145)
[2025-05-23] MEDS: Carvedilol 3.125 MG TAB PO SCH (17:30)
[2025-05-23] MEDS: Senokot S 8.6-50 MG TAB PO SCH (19:58)
[2025-05-24 05:45] LABS: #Basophils Less than 0.03 10x3/uL (0.0-0.2); #Eosinophils 0.16 10x3/uL (0.0-0.7); #Monocytes 0.41 10x3/uL (0.11-0.59); #Neutrophils 2.09 10x3/uL (1.40-6.50); %Basophils 0.4 % (0.0-1.0); %Eosinophils 3.4 % (0.0-10.0); %Lymphocytes 43.7 % (21.0-51.0); %Monocytes 8.6 % (0.0-10.0); %Neutrophils 43.9 % (42.0-75.0); Hematocrit 35.5 % (42.0-52.0); Hemoglobin 11.6 g/dL (14.0-18.0); Mean Corpuscular Hemoglobin 30.0 pg (27.0-31.0); Mean Corpuscular Volume 91.7 fL (78.0-98.0); Platelet Count 98 10x3/uL (130-400); Red Blood Cell (RBC) Count 3.87 mill/uL (4.70-6.10); White Blood Cell (WBC) Count 4.76 10x3/uL (4.8-10.8)
[2025-05-24 05:51] LABS: Anion Gap 11 mmol/L (10-20); BUN (Urea Nitrogen) 9 mg/dL (8.4-25.7); Calc. Creatinine Clearance 137 mL/min (70-130); Calcium 8.5 mg/dL (7.8-10.44); Carbon Dioxide 26 mmol/L (23-31); Chloride 103 mmol/L (98-107); Glucose 144 mg/dL (83-110); Potassium 3.7 mmol/L (3.5-5.1); Sodium 136 mmol/L (136-145)
[2025-05-24] MEDS: Lisinopril 5 MG TAB PO SCH (08:44)
[2025-05-26] MEDS: Acetaminophen 325 MG TAB PO PRN (20:29)
[2025-05-28] MEDS: Nitroglycerin 0.4 MG TAB (25 Tab Bottle) SL PRN (13:03)
[2025-05-29] MEDS: Acetaminophen/Codeine 30-300mg Tablet PO PRN (18:29)
[2025-05-30 07:58] LABS: #Basophils 0.04 10x3/uL (0.0-0.2); #Eosinophils 0.12 10x3/uL (0.0-0.7); #Monocytes 0.50 10x3/uL (0.11-0.59); #Neutrophils 1.62 10x3/uL (1.40-6.50); %Basophils 0.8 % (0.0-1.0); %Eosinophils 2.5 % (0.0-10.0); %Lymphocytes 52.8 % (21.0-51.0); %Monocytes 10.3 % (0.0-10.0); %Neutrophils 33.4 % (42.0-75.0); Hematocrit 38.7 % (42.0-52.0); Hemoglobin 12.5 g/dL (14.0-18.0); Mean Corpuscular Hemoglobin 29.7 pg (27.0-31.0); Mean Corpuscular Volume 91.9 fL (78.0-98.0); Platelet Count 141 10x3/uL (130-400); Red Blood Cell (RBC) Count 4.21 mill/uL (4.70-6.10); White Blood Cell (WBC) Count 4.85 10x3/uL (4.8-10.8)
[2025-05-30 08:22] LABS: Anion Gap 13 mmol/L (10-20); BUN (Urea Nitrogen) 18 mg/dL (8.4-25.7); Calc. Creatinine Clearance 92 mL/min (70-130); Calcium 8.5 mg/dL (7.8-10.44); Carbon Dioxide 23 mmol/L (23-31); Chloride 105 mmol/L (98-107); Glucose 162 mg/dL (83-110); Potassium 4.0 mmol/L (3.5-5.1); Sodium 137 mmol/L (136-145)
[2025-05-31 08:29] VITALS: TEMP 97.9
[2025-05-31 11:26] VITALS: BP 121/72
== END 2025-05-31 11:42 | DRG 92 ==
LOC: ERS 22:03 → ERHOLD 05-21 02:52 → OBSVTOIN 05-21 02:53 → PCU 05-21 07:48 → 2NO 05-22 01:51 → MSONC 05-24 14:32
PROVIDERS: ADMIT Family Medicine; ATTEND Internal Medicine
DX: R29.6 Repeated falls (principal); E87.20 Acidosis, unspecified; I50.22 Chronic systolic (congestive) heart failure; I47.20 Ventricular tachycardia, unspecified; I5A Non-ischemic myocardial injury (non-traumatic); R53.1 Weakness; R53.81 Other malaise; I48.0 Paroxysmal atrial fibrillation; I11.0 Hypertensive heart disease with heart failure; K21.9 Gastro-esophageal reflux disease without esophagitis; B19.20 Unspecified viral hepatitis C without hepatic coma; G89.29 Other chronic pain; Z96.651 Presence of right artificial knee joint; I45.10 Unspecified right bundle-branch block; D69.6 Thrombocytopenia, unspecified; F41.9 Anxiety disorder, unspecified; N40.0 Benign prostatic hyperplasia without lower urinary tract symptoms; E11.9 Type 2 diabetes mellitus without complications; I25.10 Atherosclerotic heart disease of native coronary artery without angina pectoris; F32.A Depression, unspecified; F17.290 Nicotine dependence, other tobacco product, uncomplicated; Z95.810 Presence of automatic (implantable) cardiac defibrillator; Z88.8 Allergy status to other drugs, medicaments and biological substances; Z87.81 Personal history of (healed) traumatic fracture; Z98.890 Other specified postprocedural states; Z90.49 Acquired absence of other specified parts of digestive tract; Z90.89 Acquired absence of other organs; Z91.199 Patient's noncompliance with other medical treatment and regimen due to unspecified reason; Z79.4 Long term (current) use of insulin
CPT/HCPCS: 36415; 36416; 70450; 71045; 71260; 72125; 74177; 80048; 80053; 81001; 82550; 82805; 83605; 83735; 83880; 84443; 84484; 85025; 87040; 87077; 87086; 87149; 93005; 93010; 93306; 94760; 96372; 96374; G0378; J1650; J1815; J3010; Q9967

== ENCOUNTER 2025-06-16 10:45 | Inpatient (IN) | payer OTHER ==
[2025-06-16 11:49] LABS: #Basophils Less than 0.03 10x3/uL (0.0-0.2); #Eosinophils 0.05 10x3/uL (0.0-0.7); #Monocytes 0.42 10x3/uL (0.11-0.59); #Neutrophils 3.23 10x3/uL (1.40-6.50); %Basophils 0.4 % (0.0-1.0); %Eosinophils 0.9 % (0.0-10.0); %Lymphocytes 33.2 % (21.0-51.0); %Monocytes 7.5 % (0.0-10.0); %Neutrophils 57.8 % (42.0-75.0); Hematocrit 37.1 % (42.0-52.0); Hemoglobin 11.7 g/dL (14.0-18.0); Mean Corpuscular Hemoglobin 29.3 pg (27.0-31.0); Mean Corpuscular Volume 93.0 fL (78.0-98.0); Platelet Count 66 10x3/uL (130-400); Red Blood Cell (RBC) Count 3.99 mill/uL (4.70-6.10); White Blood Cell (WBC) Count 5.58 10x3/uL (4.8-10.8)
[2025-06-16 12:01] LABS: INR-International Normal Ratio 1.1; Prothrombin Time 13.9 sec (12.0-14.7)
[2025-06-16 12:02] LABS: PTT 35.9 sec (22.9-36.1)
[2025-06-16 12:13] LABS: Ovalocytes SLIGHT = 2-5 cells HPF (0-1); Platelet Adequacy Comment Platelets Decreased; Polychromasia SLIGHT = 2-3 cells HPF (0-2)
[2025-06-16 12:23] LABS: ALT (SGPT) 181 U/L (Less than 45); AST (SGOT) 207 U/L (11-34); Albumin 2.9 g/dL (3.1-4.5); Alkaline Phosphatase 205 U/L (40-110); Anion Gap 13 mmol/L (10-20); BUN (Urea Nitrogen) 11 mg/dL (8.4-25.7); Bilirubin, Total 1.4 mg/dL (0.3-1.2); Calc. Creatinine Clearance 0 mL/min (70-130); Calcium 8.5 mg/dL (7.8-10.44); Carbon Dioxide 23 mmol/L (23-31); Chloride 104 mmol/L (98-107); Globulin 4.3 g/dL (2.4-3.5); Glucose 132 mg/dL (83-110); Magnesium 1.7 mg/dL (1.6-2.6); Potassium 4.4 mmol/L (3.5-5.1); Sodium 136 mmol/L (136-145)
[2025-06-16] MEDS ORDERED: cefTRIAXone (ROCEPHIN) 1 GM VIAL ONE (12:27)
[2025-06-16] MEDS ORDERED: Furosemide 20 MG (2 mL) VIAL ONE (12:42)
[2025-06-16 12:44] LABS: Bacteria/HPF None Seen HPF (None Seen); CAUTI Indications for Culture Dysuria,urgency,freq; Glucose, Urine (Dipstick) Normal (Negative); Leukocyte Negative Leu/uL (Negative); Protein, Urine (Dipstick) 20 mg/dL (Neg-Trace); RBC/HPF 0-3 HPF (0-3); Specific Gravity, Urine 1.015 (1.002-1.036); WBC/HPF 0-3 HPF (0-3)
[2025-06-16 12:46] LABS: Urine Culture Reflex No No
[2025-06-16 17:14] VITALS: BMI 29.7
[2025-06-16] MEDS ORDERED: Ondansetron PF 4 MG/2 ML Vial IVP PRN (17:52)
[2025-06-16] MEDS ORDERED: Senokot S 8.6-50 MG TAB PO PRN (17:52)
[2025-06-16] MEDS ORDERED: Acetaminophen 325 MG TAB PO PRN (17:52)
[2025-06-16] MEDS: Ketorolac Tromethamine 30 MG (1 mL) VIAL IVP SCH (18:25)
[2025-06-16] MEDS: Pantoprazole 40 MG VIAL IVP SCH (18:27)
[2025-06-16] MEDS: Nitroglycerin 0.4 MG TAB (25 Tab Bottle) SL PRN (18:34)
[2025-06-16] MEDS: Insulin Glargine 30 UNITS/0.3 ML VIAL SC SCH (20:05)
[2025-06-17 05:07] LABS: #Basophils Less than 0.03 10x3/uL (0.0-0.2); #Eosinophils 0.08 10x3/uL (0.0-0.7); #Monocytes 0.54 10x3/uL (0.11-0.59); #Neutrophils 1.84 10x3/uL (1.40-6.50); %Basophils 0.4 % (0.0-1.0); %Eosinophils 1.6 % (0.0-10.0); %Lymphocytes 49.2 % (21.0-51.0); %Monocytes 11.0 % (0.0-10.0); %Neutrophils 37.6 % (42.0-75.0); Hematocrit 38.2 % (42.0-52.0); Hemoglobin 11.8 g/dL (14.0-18.0); Mean Corpuscular Hemoglobin 29.3 pg (27.0-31.0); Mean Corpuscular Volume 94.8 fL (78.0-98.0); Platelet Count 66 10x3/uL (130-400); Red Blood Cell (RBC) Count 4.03 mill/uL (4.70-6.10); White Blood Cell (WBC) Count 4.90 10x3/uL (4.8-10.8)
[2025-06-17 05:20] LABS: Anion Gap 13 mmol/L (10-20); BUN (Urea Nitrogen) 15 mg/dL (8.4-25.7); Calc. Creatinine Clearance 112 mL/min (70-130); Calcium 8.7 mg/dL (7.8-10.44); Carbon Dioxide 22 mmol/L (23-31); Chloride 106 mmol/L (98-107); Glucose 89 mg/dL (83-110); Potassium 3.4 mmol/L (3.5-5.1); Sodium 138 mmol/L (136-145)
[2025-06-17] MEDS: Furosemide 20 MG (2 mL) VIAL SLOW IVP SCH (05:33)
[2025-06-17] MEDS ORDERED: PNEUMOC 20-VAL CONJ-DIP CRM/PF 0.5 ML SYRINGE IM ONE (09:00)
[2025-06-17] MEDS: Carvedilol 3.125 MG TAB PO SCH (11:35)
[2025-06-17] MEDS: Aspirin Chewable 81 MG TAB PO SCH (11:35)
[2025-06-17] MEDS: Pantoprazole 40 MG DR.TAB PO SCH (11:36)
[2025-06-17 20:37] VITALS: BMI 29.7
[2025-06-17] MEDS: Melatonin 3 MG TAB PO PRN (21:14)
[2025-06-18 04:53] LABS: #Basophils Less than 0.03 10x3/uL (0.0-0.2); #Eosinophils 0.10 10x3/uL (0.0-0.7); #Monocytes 0.52 10x3/uL (0.11-0.59); #Neutrophils 1.22 10x3/uL (1.40-6.50); %Basophils 0.5 % (0.0-1.0); %Eosinophils 2.6 % (0.0-10.0); %Lymphocytes 52.1 % (21.0-51.0); %Monocytes 13.4 % (0.0-10.0); %Neutrophils 31.4 % (42.0-75.0); Hematocrit 38.6 % (42.0-52.0); Hemoglobin 12.1 g/dL (14.0-18.0); Mean Corpuscular Hemoglobin 29.7 pg (27.0-31.0); Mean Corpuscular Volume 94.8 fL (78.0-98.0); Platelet Count 71 10x3/uL (130-400); Red Blood Cell (RBC) Count 4.07 mill/uL (4.70-6.10); White Blood Cell (WBC) Count 3.88 10x3/uL (4.8-10.8)
[2025-06-18 05:17] LABS: Anion Gap 12 mmol/L (10-20); BUN (Urea Nitrogen) 17 mg/dL (8.4-25.7); Calc. Creatinine Clearance 106 mL/min (70-130); Calcium 8.3 mg/dL (7.8-10.44); Carbon Dioxide 24 mmol/L (23-31); Chloride 105 mmol/L (98-107); Glucose 114 mg/dL (83-110); Potassium 3.5 mmol/L (3.5-5.1); Sodium 137 mmol/L (136-145)
[2025-06-18] MEDS: Dextrose 50% Abboject 50 ML SYRINGE ONE (05:51)
[2025-06-18] MEDS: Lisinopril 5 MG TAB PO SCH (09:13)
[2025-06-18] MEDS: Ketorolac Tromethamine 30 MG (1 mL) VIAL IVP SCH (21:51)
[2025-06-19 04:35] LABS: #Basophils 0.03 10x3/uL (0.0-0.2); #Eosinophils 0.11 10x3/uL (0.0-0.7); #Monocytes 0.61 10x3/uL (0.11-0.59); #Neutrophils 1.41 10x3/uL (1.40-6.50); %Basophils 0.7 % (0.0-1.0); %Eosinophils 2.4 % (0.0-10.0); %Lymphocytes 51.9 % (21.0-51.0); %Monocytes 13.6 % (0.0-10.0); %Neutrophils 31.4 % (42.0-75.0); Hematocrit 35.7 % (42.0-52.0); Hemoglobin 11.3 g/dL (14.0-18.0); Mean Corpuscular Hemoglobin 29.6 pg (27.0-31.0); Mean Corpuscular Volume 93.5 fL (78.0-98.0); Platelet Count 88 10x3/uL (130-400); Red Blood Cell (RBC) Count 3.82 mill/uL (4.70-6.10); White Blood Cell (WBC) Count 4.49 10x3/uL (4.8-10.8)
[2025-06-19 05:00] LABS: Anion Gap 13 mmol/L (10-20); BUN (Urea Nitrogen) 19 mg/dL (8.4-25.7); Calc. Creatinine Clearance 108 mL/min (70-130); Calcium 8.1 mg/dL (7.8-10.44); Carbon Dioxide 23 mmol/L (23-31); Chloride 107 mmol/L (98-107); Glucose 116 mg/dL (83-110); Potassium 4.1 mmol/L (3.5-5.1); Sodium 139 mmol/L (136-145)
[2025-06-19] MEDS: Dapagliflozin Propanediol 10 MG TAB PO SCH (10:26)
[2025-06-19 12:21] VITALS: BP 132/71; TEMP 97.5
== END 2025-06-19 16:40 | disposition home or self-care (01) | DRG 291 ==
LOC: ERS 10:45 → 2NO 13:59 → OBSVTOIN 06-17 14:03
PROVIDERS: ADMIT Internal Medicine; ATTEND Internal Medicine
DX: I13.0 Hypertensive heart and chronic kidney disease with heart failure and stage 1 through stage 4 chronic kidney disease, or unspecified chronic kidney disease (principal); I50.33 Acute on chronic diastolic (congestive) heart failure; J96.01 Acute respiratory failure with hypoxia; N18.6 End stage renal disease; I47.20 Ventricular tachycardia, unspecified; K21.9 Gastro-esophageal reflux disease without esophagitis; B18.2 Chronic viral hepatitis C; E78.5 Hyperlipidemia, unspecified; E11.22 Type 2 diabetes mellitus with diabetic chronic kidney disease; Z96.651 Presence of right artificial knee joint; J44.9 Chronic obstructive pulmonary disease, unspecified; F41.9 Anxiety disorder, unspecified; F32.A Depression, unspecified; F17.220 Nicotine dependence, chewing tobacco, uncomplicated; I48.0 Paroxysmal atrial fibrillation; R29.6 Repeated falls; E11.42 Type 2 diabetes mellitus with diabetic polyneuropathy; I25.10 Atherosclerotic heart disease of native coronary artery without angina pectoris; M54.9 Dorsalgia, unspecified; D69.6 Thrombocytopenia, unspecified; Z87.11 Personal history of peptic ulcer disease; Z96.82 Presence of neurostimulator; Z88.8 Allergy status to other drugs, medicaments and biological substances; Z98.890 Other specified postprocedural states; Z90.89 Acquired absence of other organs; Z90.49 Acquired absence of other specified parts of digestive tract
CPT/HCPCS: 36415; 36416; 71045; 80048; 80053; 81001; 83735; 83880; 84484; 85025; 85610; 85730; 87040; 87077; 87086; 87186; 87426; 93005; 94760; 96365; 96375; 96376; G0378; J0696; J1815; J1885; J1940; J2470

== ENCOUNTER 2025-06-25 10:14 | Inpatient (IN) | payer OTHER ==
[2025-06-25 13:31] LABS: #Basophils 0.03 10x3/uL (0.0-0.2); #Eosinophils Less than 0.03 10x3/uL (0.0-0.7); #Monocytes 0.50 10x3/uL (0.11-0.59); #Neutrophils 2.89 10x3/uL (1.40-6.50); %Basophils 0.5 % (0.0-1.0); %Eosinophils 0.4 % (0.0-10.0); %Lymphocytes 36.9 % (21.0-51.0); %Monocytes 9.1 % (0.0-10.0); %Neutrophils 52.7 % (42.0-75.0); Hematocrit 38.3 % (42.0-52.0); Hemoglobin 12.1 g/dL (14.0-18.0); Mean Corpuscular Hemoglobin 28.8 pg (27.0-31.0); Mean Corpuscular Volume 91.2 fL (78.0-98.0); Platelet Count 144 10x3/uL (130-400); Red Blood Cell (RBC) Count 4.20 mill/uL (4.70-6.10); White Blood Cell (WBC) Count 5.48 10x3/uL (4.8-10.8)
[2025-06-25 13:34] LABS: Actual Bicarbonate (HCO3v) 24.1 mEq/L (22-28); Base Excess -1.8 mEq/L (-2.0 to +3.0); Calcium, Ionized (venous) 1.13 mmol/L (1.16-1.32); Chloride (VBG) 99 mmol/L (98-106); Hematocrit-VBG 39 % (42.0-52.0); Hemoglobin (Hb) 13.4 g/dL (12.6-17.4); Potassium (VBG) 4.29 mmol/L (3.70-5.30); Sodium 137 mmol/L (133-146)
[2025-06-25 14:05] LABS: ALT (SGPT) 149 U/L (Less than 45); AST (SGOT) 197 U/L (11-34); Albumin 2.8 g/dL (3.1-4.5); Alkaline Phosphatase 156 U/L (40-110); Anion Gap 16 mmol/L (10-20); BUN (Urea Nitrogen) 12 mg/dL (8.4-25.7); Bilirubin, Total 1.5 mg/dL (0.3-1.2); Calc. Creatinine Clearance 0 mL/min (70-130); Calcium 8.6 mg/dL (7.8-10.44); Carbon Dioxide 26 mmol/L (23-31); Chloride 100 mmol/L (98-107); Globulin 4.8 g/dL (2.4-3.5); Glucose 99 mg/dL (83-110); Potassium 4.4 mmol/L (3.5-5.1); Sodium 138 mmol/L (136-145)
[2025-06-25] MEDS ORDERED: cefTRIAXone (ROCEPHIN) 2 GM VIAL ONE (14:07)
[2025-06-25] MEDS ORDERED: hydrALAZINE 20 MG/ML VIAL ONE (14:15)
[2025-06-25] MEDS ORDERED: Calcium Carbonate 500 MG ChewTAB PO PRN (15:57)
[2025-06-25] MEDS ORDERED: Ondansetron PF 4 MG/2 ML Vial IVP PRN (15:57)
[2025-06-25] MEDS ORDERED: Glucagon 1 MG/ML KIT IM PRN (15:57)
[2025-06-25] MEDS ORDERED: Dextrose 50% Abboject 50 ML SYRINGE SLOW IVP PRN (15:57)
[2025-06-25] MEDS ORDERED: Electrolyte Replacement Protocol 1 EACH FS SCH (16:00)
[2025-06-25] MEDS ORDERED: Furosemide 20 MG (2 mL) VIAL SLOW IVP SCH (16:15)
[2025-06-25 16:29] LABS: Magnesium 1.9 mg/dL (1.6-2.6)
[2025-06-25] MEDS: Carvedilol 3.125 MG TAB PO SCH (18:21)
[2025-06-25] MEDS: Furosemide 40 MG TAB PO SCH (18:21)
[2025-06-25 19:37] VITALS: BMI 34.4
[2025-06-26] MEDS: Melatonin 3 MG TAB PO PRN (02:25)
[2025-06-26] MEDS: Acetaminophen 325 MG TAB PO PRN (02:25)
[2025-06-26 05:26] LABS: #Basophils Less than 0.03 10x3/uL (0.0-0.2); #Eosinophils 0.04 10x3/uL (0.0-0.7); #Monocytes 0.76 10x3/uL (0.11-0.59); #Neutrophils 2.43 10x3/uL (1.40-6.50); %Basophils 0.4 % (0.0-1.0); %Eosinophils 0.7 % (0.0-10.0); %Lymphocytes 41.0 % (21.0-51.0); %Monocytes 13.7 % (0.0-10.0); %Neutrophils 44.0 % (42.0-75.0); Hematocrit 33.7 % (42.0-52.0); Hemoglobin 10.6 g/dL (14.0-18.0); Mean Corpuscular Hemoglobin 29.3 pg (27.0-31.0); Mean Corpuscular Volume 93.1 fL (78.0-98.0); Platelet Count 135 10x3/uL (130-400); Red Blood Cell (RBC) Count 3.62 mill/uL (4.70-6.10); White Blood Cell (WBC) Count 5.53 10x3/uL (4.8-10.8)
[2025-06-26 05:48] LABS: ALT (SGPT) 121 U/L (Less than 45); AST (SGOT) 151 U/L (11-34); Albumin 2.5 g/dL (3.1-4.5); Alkaline Phosphatase 133 U/L (40-110); Anion Gap 15 mmol/L (10-20); BUN (Urea Nitrogen) 15 mg/dL (8.4-25.7); Bilirubin, Total 1.1 mg/dL (0.3-1.2); Calc. Creatinine Clearance 102 mL/min (70-130); Calcium 8.3 mg/dL (7.8-10.44); Carbon Dioxide 24 mmol/L (23-31); Chloride 101 mmol/L (98-107); Globulin 4.1 g/dL (2.4-3.5); Glucose 104 mg/dL (83-110); Potassium 3.6 mmol/L (3.5-5.1); Sodium 136 mmol/L (136-145)
[2025-06-26] MEDS: Dapagliflozin Propanediol 10 MG TAB PO SCH (08:42)
[2025-06-26] MEDS: Lisinopril 5 MG TAB PO SCH (08:42)
[2025-06-26] MEDS: Pantoprazole 40 MG DR.TAB PO SCH (08:42)
[2025-06-26] MEDS: Enoxaparin 40 MG (0.4 mL) SYRINGE SC SCH (08:42)
[2025-06-26] MEDS: Aspirin Chewable 81 MG TAB PO SCH (08:42)
[2025-06-26 14:41] LABS: CAUTI Indications for Culture Alt mental st,lethar; Glucose, Urine (Dipstick) Greater than 1000 mg/dL (Negative); Leukocyte Negative Leu/uL (Negative); Protein, Urine (Dipstick) Negative (Neg-Trace); RBC/HPF 0-3 HPF (0-3); Specific Gravity, Urine 1.018 (1.002-1.036); WBC/HPF 0-3 HPF (0-3); Yeast-Budding 1+ HPF (None Seen)
[2025-06-26 14:42] LABS: Bacteria/HPF 1+ HPF (None Seen); Urine Culture Reflex No No
[2025-06-26] MEDS ORDERED: cefTRIAXone\\ROCEPHIN 1 GM in Sodium Chloride 0.9% 100 ML IVPB SCH (16:15)
[2025-06-27] MEDS: Insulin Glargine 30 UNITS/0.3 ML VIAL SC SCH (20:21)
[2025-06-27] MEDS: Senokot S 8.6-50 MG TAB PO PRN (21:01)
[2025-06-28 13:21] VITALS: BMI 27.4
[2025-06-29 07:04] LABS: #Basophils Less than 0.03 10x3/uL (0.0-0.2); #Eosinophils 0.10 10x3/uL (0.0-0.7); #Monocytes 0.48 10x3/uL (0.11-0.59); #Neutrophils 1.35 10x3/uL (1.40-6.50); %Basophils 0.3 % (0.0-1.0); %Eosinophils 2.5 % (0.0-10.0); %Lymphocytes 50.5 % (21.0-51.0); %Monocytes 12.2 % (0.0-10.0); %Neutrophils 34.2 % (42.0-75.0); Hematocrit 39.6 % (42.0-52.0); Hemoglobin 12.0 g/dL (14.0-18.0); Mean Corpuscular Hemoglobin 29.3 pg (27.0-31.0); Mean Corpuscular Volume 96.6 fL (78.0-98.0); Platelet Count 124 10x3/uL (130-400); Red Blood Cell (RBC) Count 4.10 mill/uL (4.70-6.10); White Blood Cell (WBC) Count 3.94 10x3/uL (4.8-10.8)
[2025-06-29 07:37] LABS: Anion Gap 14 mmol/L (10-20); BUN (Urea Nitrogen) 18 mg/dL (8.4-25.7); Calc. Creatinine Clearance 99 mL/min (70-130); Calcium 8.7 mg/dL (7.8-10.44); Carbon Dioxide 23 mmol/L (23-31); Chloride 108 mmol/L (98-107); Glucose 138 mg/dL (83-110); Potassium 3.3 mmol/L (3.5-5.1); Sodium 142 mmol/L (136-145)
[2025-06-30] MEDS: HYDROcodone/Acetaminophen 5/325 mg Tablet PO PRN (14:38)
[2025-06-30 15:11] LABS: Anion Gap 12 mmol/L (10-20); BUN (Urea Nitrogen) 19 mg/dL (8.4-25.7); Calc. Creatinine Clearance 0 mL/min (70-130); Calcium 8.4 mg/dL (7.8-10.44); Carbon Dioxide 23 mmol/L (23-31); Chloride 109 mmol/L (98-107); Glucose 114 mg/dL (83-110); Potassium 4.0 mmol/L (3.5-5.1); Sodium 140 mmol/L (136-145)
[2025-06-30] MEDS: Methocarbamol 500 MG TAB PO SCH ×2 (16:45→21:13)
[2025-07-01] MEDS ORDERED: Lisinopril 5 MG TAB PO SCH (12:21)
[2025-07-01] MEDS ORDERED: Lisinopril 10 MG TAB PO SCH (12:30)
[2025-07-01] MEDS: Lisinopril 20 MG TAB PO SCH (12:43)
[2025-07-02 08:18] LABS: #Basophils 0.06 10x3/uL (0.0-0.2); #Eosinophils 0.13 10x3/uL (0.0-0.7); #Monocytes 0.53 10x3/uL (0.11-0.59); #Neutrophils 3.47 10x3/uL (1.40-6.50); %Basophils 0.8 % (0.0-1.0); %Eosinophils 1.8 % (0.0-10.0); %Lymphocytes 42.8 % (21.0-51.0); %Monocytes 7.2 % (0.0-10.0); %Neutrophils 47.0 % (42.0-75.0); Hematocrit 40.3 % (42.0-52.0); Hemoglobin 12.9 g/dL (14.0-18.0); Mean Corpuscular Hemoglobin 29.9 pg (27.0-31.0); Mean Corpuscular Volume 93.3 fL (78.0-98.0); Platelet Count 179 10x3/uL (130-400); Red Blood Cell (RBC) Count 4.32 mill/uL (4.70-6.10); White Blood Cell (WBC) Count 7.38 10x3/uL (4.8-10.8)
[2025-07-02] MEDS: Lisinopril 20 MG TAB PO SCH (08:22)
[2025-07-02 08:27] LABS: Anion Gap 15 mmol/L (10-20); BUN (Urea Nitrogen) 18 mg/dL (8.4-25.7); Calc. Creatinine Clearance 99 mL/min (70-130); Calcium 8.6 mg/dL (7.8-10.44); Carbon Dioxide 19 mmol/L (23-31); Chloride 109 mmol/L (98-107); Glucose 159 mg/dL (83-110); Potassium 3.9 mmol/L (3.5-5.1); Sodium 139 mmol/L (136-145)
[2025-07-02] MEDS: Sodium Bicarbonate Tab 325 MG TAB PO SCH (08:53)
[2025-07-02 12:02] VITALS: BP 123/75; TEMP 98
== END 2025-07-02 18:26 | disposition home health service (06) | DRG 689 ==
LOC: ERS 10:14 → T4-B 14:52 → OBSVTOIN 16:18
PROVIDERS: ADMIT Internal Medicine; ATTEND Internal Medicine
DX: N39.0 Urinary tract infection, site not specified (principal); G93.41 Metabolic encephalopathy; I50.33 Acute on chronic diastolic (congestive) heart failure; I25.10 Atherosclerotic heart disease of native coronary artery without angina pectoris; E11.9 Type 2 diabetes mellitus without complications; J44.9 Chronic obstructive pulmonary disease, unspecified; E78.5 Hyperlipidemia, unspecified; F41.9 Anxiety disorder, unspecified; K21.9 Gastro-esophageal reflux disease without esophagitis; K75.9 Inflammatory liver disease, unspecified; I48.0 Paroxysmal atrial fibrillation; I11.0 Hypertensive heart disease with heart failure; M54.9 Dorsalgia, unspecified; F32.A Depression, unspecified; Z98.890 Other specified postprocedural states; Z95.810 Presence of automatic (implantable) cardiac defibrillator; Z88.8 Allergy status to other drugs, medicaments and biological substances; Z90.49 Acquired absence of other specified parts of digestive tract; Z72.0 Tobacco use; E87.6 Hypokalemia; R53.81 Other malaise; R00.1 Bradycardia, unspecified; Z79.899 Other long term (current) drug therapy; Z79.82 Long term (current) use of aspirin; Z79.4 Long term (current) use of insulin
CPT/HCPCS: 36415; 36416; 71045; 80048; 80053; 81001; 82805; 83605; 83735; 83880; 85025; 87040; 93005; 93010; 94760; 96365; 96375; 97139; J0360; J0696; J1650; J1815; J2270

== ENCOUNTER 2025-07-08 22:55 | Emergency (ER) | payer OTHER ==
[2025-07-08 23:42] LABS: Bacteria/HPF None Seen HPF (None Seen); CAUTI Indications for Culture Dysuria,urgency,freq; Glucose, Urine (Dipstick) Normal (Negative); Leukocyte Negative Leu/uL (Negative); Protein, Urine (Dipstick) 30 mg/dL (Neg-Trace); RBC/HPF 0-3 HPF (0-3); Specific Gravity, Urine 1.028 (1.002-1.036); WBC/HPF 0-3 HPF (0-3)
[2025-07-08 23:43] LABS: Urine Culture Reflex No No
[2025-07-09 00:20] LABS: #Basophils 0.04 10x3/uL (0.0-0.2); #Eosinophils 0.07 10x3/uL (0.0-0.7); #Monocytes 0.60 10x3/uL (0.11-0.59); #Neutrophils 3.06 10x3/uL (1.40-6.50); %Basophils 0.6 % (0.0-1.0); %Eosinophils 1.1 % (0.0-10.0); %Lymphocytes 39.5 % (21.0-51.0); %Monocytes 9.6 % (0.0-10.0); %Neutrophils 49.0 % (42.0-75.0); Hematocrit 37.9 % (42.0-52.0); Hemoglobin 11.9 g/dL (14.0-18.0); Mean Corpuscular Hemoglobin 29.1 pg (27.0-31.0); Mean Corpuscular Volume 92.7 fL (78.0-98.0); Platelet Count 150 10x3/uL (130-400); Red Blood Cell (RBC) Count 4.09 mill/uL (4.70-6.10); White Blood Cell (WBC) Count 6.25 10x3/uL (4.8-10.8)
[2025-07-09] MEDS ORDERED: Magnesium 2 GM/50 ML BAG (IN WATER) ONE (00:31)
[2025-07-09 00:39] LABS: ALT (SGPT) 40 U/L (Less than 45); AST (SGOT) 55 U/L (11-34); Albumin 2.7 g/dL (3.1-4.5); Alkaline Phosphatase 186 U/L (40-110); Anion Gap 13 mmol/L (10-20); BUN (Urea Nitrogen) 14 mg/dL (8.4-25.7); Bilirubin, Total 0.6 mg/dL (0.3-1.2); CK (CPK) 63 U/L (30-200); Calc. Creatinine Clearance 0 mL/min (70-130); Calcium 9.0 mg/dL (7.8-10.44); Carbon Dioxide 25 mmol/L (23-31); Chloride 106 mmol/L (98-107); Globulin 4.6 g/dL (2.4-3.5); Glucose 123 mg/dL (83-110); Lipase 13 U/L (8-78); Magnesium 1.8 mg/dL (1.6-2.6); Potassium 4.1 mmol/L (3.5-5.1); Sodium 140 mmol/L (136-145)
[2025-07-09] MEDS ORDERED: Iopamidol-370 76% 500 ML MDV (1 ML CHARGE) ONE (11:15)
== END 2025-07-09 08:41 | disposition home or self-care (01) ==
LOC: ERS 22:55
DX: S51.012A Laceration without foreign body of left elbow, initial encounter (principal); R07.9 Chest pain, unspecified; I11.0 Hypertensive heart disease with heart failure; I25.10 Atherosclerotic heart disease of native coronary artery without angina pectoris; E11.9 Type 2 diabetes mellitus without complications; E78.5 Hyperlipidemia, unspecified; Z95.0 Presence of cardiac pacemaker; Z79.899 Other long term (current) drug therapy; Z79.84 Long term (current) use of oral hypoglycemic drugs; Z79.82 Long term (current) use of aspirin; X58.XXXA Exposure to other specified factors, initial encounter
CPT/HCPCS: 70450; 71045; 74177; 80053; 81001; 82550; 83690; 83735; 83880; 84484 ×2; 85025; 93005 ×2; J2270; J3475; Q9967; 96374; 96375

== ENCOUNTER 2025-09-09 21:12 | Inpatient (IN) | payer OTHER, MEDICARE ==
[2025-09-09 21:51] LABS: #Basophils 0.03 10x3/uL (0.0-0.2); #Eosinophils 0.14 10x3/uL (0.0-0.7); #Monocytes 0.48 10x3/uL (0.11-0.59); #Neutrophils 1.82 10x3/uL (1.40-6.50); %Basophils 0.7 % (0.0-1.0); %Eosinophils 3.1 % (0.0-10.0); %Lymphocytes 44.9 % (21.0-51.0); %Monocytes 10.7 % (0.0-10.0); %Neutrophils 40.6 % (42.0-75.0); Hematocrit 42.1 % (42.0-52.0); Hemoglobin 12.8 g/dL (14.0-18.0); Mean Corpuscular Hemoglobin 26.1 pg (27.0-31.0); Mean Corpuscular Volume 85.9 fL (78.0-98.0); Platelet Count 100 10x3/uL (130-400); Red Blood Cell (RBC) Count 4.90 mill/uL (4.70-6.10); White Blood Cell (WBC) Count 4.48 10x3/uL (4.8-10.8)
[2025-09-09 22:00] LABS: ALT (SGPT) 199 U/L (Less than 45); AST (SGOT) 196 U/L (11-34); Albumin 3.0 g/dL (3.1-4.5); Alkaline Phosphatase 256 U/L (40-110); Anion Gap 13 mmol/L (10-20); BUN (Urea Nitrogen) 13 mg/dL (8.4-25.7); Bilirubin, Total 1.1 mg/dL (0.3-1.2); Calc. Creatinine Clearance 0 mL/min (70-130); Calcium 8.9 mg/dL (7.8-10.44); Carbon Dioxide 25 mmol/L (23-31); Chloride 100 mmol/L (98-107); Globulin 4.8 g/dL (2.4-3.5); Glucose 275 mg/dL (83-110); Potassium 4.0 mmol/L (3.5-5.1); Sodium 134 mmol/L (136-145)
[2025-09-10 00:03] LABS: Magnesium 1.7 mg/dL (1.6-2.6)
[2025-09-10] MEDS ORDERED: Calcium Carbonate 500 MG ChewTAB PO PRN (00:27)
[2025-09-10] MEDS ORDERED: Ondansetron PF 4 MG/2 ML Vial IVP PRN (00:27)
[2025-09-10] MEDS ORDERED: Glucagon 1 MG/ML KIT IM PRN (00:29)
[2025-09-10] MEDS ORDERED: Dextrose 50% Abboject 50 ML SYRINGE SLOW IVP PRN (00:29)
[2025-09-10] MEDS ORDERED: Electrolyte Replacement Protocol 1 EACH FS SCH (00:30)
[2025-09-10] MEDS ORDERED: Albuterol 200 PUFF (6.7GM INHALER) INH PRN (00:30)
[2025-09-10] MEDS ORDERED: Magnesium 2 GM/50 ML(in water) 2 GM in Premix 1 BAG IVPB PRN (00:45)
[2025-09-10] MEDS ORDERED: Potassium Chloride 20 MEQ in Premix 1 BAG IVPB PRN (00:45)
[2025-09-10] MEDS ORDERED: PHOS-NAK 1 PKT PACK PO PRN (00:45)
[2025-09-10 01:54] VITALS: BMI 28.5
[2025-09-10] MEDS: Magnesium 2 GM/50 ML(in water) 2 GM in Premix 1 BAG IVPB SCH (03:01)
[2025-09-10 05:41] LABS: #Basophils 0.04 10x3/uL (0.0-0.2); #Eosinophils 0.21 10x3/uL (0.0-0.7); #Monocytes 0.48 10x3/uL (0.11-0.59); #Neutrophils 1.61 10x3/uL (1.40-6.50); %Basophils 1.0 % (0.0-1.0); %Eosinophils 5.0 % (0.0-10.0); %Lymphocytes 43.8 % (21.0-51.0); %Monocytes 11.5 % (0.0-10.0); %Neutrophils 38.7 % (42.0-75.0); Hematocrit 38.3 % (42.0-52.0); Hemoglobin 11.8 g/dL (14.0-18.0); Mean Corpuscular Hemoglobin 26.3 pg (27.0-31.0); Mean Corpuscular Volume 85.3 fL (78.0-98.0); Platelet Count 88 10x3/uL (130-400); Red Blood Cell (RBC) Count 4.49 mill/uL (4.70-6.10); White Blood Cell (WBC) Count 4.16 10x3/uL (4.8-10.8)
[2025-09-10 05:53] LABS: ALT (SGPT) 195 U/L (Less than 45); AST (SGOT) 232 U/L (11-34); Albumin 2.6 g/dL (3.1-4.5); Alkaline Phosphatase 209 U/L (40-110); Anion Gap 11 mmol/L (10-20); BUN (Urea Nitrogen) 13 mg/dL (8.4-25.7); Bilirubin, Total 1.0 mg/dL (0.3-1.2); Calc. Creatinine Clearance 134 mL/min (70-130); Calcium 8.7 mg/dL (7.8-10.44); Carbon Dioxide 27 mmol/L (23-31); Chloride 102 mmol/L (98-107); Globulin 4.4 g/dL (2.4-3.5); Glucose 128 mg/dL (83-110); Potassium 3.8 mmol/L (3.5-5.1); Sodium 136 mmol/L (136-145)
[2025-09-10] MEDS: Lisinopril 10 MG TAB PO SCH (09:25)
[2025-09-10] MEDS: Pantoprazole 40 MG DR.TAB PO SCH (09:25)
[2025-09-10] MEDS: Ketorolac Tromethamine 30 MG (1 mL) VIAL IVP PRN (09:25)
[2025-09-10] MEDS: Dapagliflozin Propanediol 10 MG TAB PO SCH (09:25)
[2025-09-10] MEDS: Aspirin Chewable 81 MG TAB PO SCH (09:25)
[2025-09-10 11:05] VITALS: BMI 28.5
[2025-09-10] MEDS: Insulin Glargine 30 UNITS/0.3 ML VIAL SC SCH (21:13)
[2025-09-10] MEDS: Transdermal Patch Removal TOP SCH (21:17)
[2025-09-10] MEDS: Melatonin 3 MG TAB PO PRN (21:25)
[2025-09-11] MEDS: Melatonin 3 MG TAB PO SCH (03:09)
[2025-09-11 09:45] LABS: ALT (SGPT) 205 U/L (Less than 45); AST (SGOT) 266 U/L (11-34); Albumin 2.5 g/dL (3.1-4.5); Alkaline Phosphatase 216 U/L (40-110); Anion Gap 15 mmol/L (10-20); BUN (Urea Nitrogen) 21 mg/dL (8.4-25.7); Bilirubin, Total 1.1 mg/dL (0.3-1.2); Calc. Creatinine Clearance 109 mL/min (70-130); Calcium 8.2 mg/dL (7.8-10.44); Carbon Dioxide 21 mmol/L (23-31); Chloride 103 mmol/L (98-107); Globulin 4.3 g/dL (2.4-3.5); Glucose 182 mg/dL (83-110); Potassium 4.7 mmol/L (3.5-5.1); Sodium 134 mmol/L (136-145)
[2025-09-11 10:29] LABS: Hematocrit 39.0 % (42.0-52.0); Hemoglobin 12.0 g/dL (14.0-18.0); Mean Corpuscular Hemoglobin 26.2 pg (27.0-31.0); Mean Corpuscular Volume 85.2 fL (78.0-98.0); Platelet Count 93 10x3/uL (130-400); Red Blood Cell (RBC) Count 4.58 mill/uL (4.70-6.10); White Blood Cell (WBC) Count 5.81 10x3/uL (4.8-10.8)
[2025-09-11 11:42] LABS: Anisocytosis MODERATE=16-30 cells HPF (0-5); Macrocytosis SLIGHT = 6-15 cells HPF (0-5); Ovalocytes SLIGHT = 2-5 cells HPF (0-1); Platelet Adequacy Comment Platelets Decreased
[2025-09-11 11:54] LABS: #Basophils 0.05 10x3/uL (0.0-0.2); #Eosinophils 0.13 10x3/uL (0.0-0.7); #Monocytes 0.58 10x3/uL (0.11-0.59); #Neutrophils 2.68 10x3/uL (1.40-6.50); %Basophils 0.9 % (0.0-1.0); %Eosinophils 2.2 % (0.0-10.0); %Lymphocytes 41.2 % (21.0-51.0); %Monocytes 9.9 % (0.0-10.0); %Neutrophils 45.6 % (42.0-75.0)
[2025-09-11] MEDS: Isosorbide Mononitrate 30 MG ER.TAB.S PO SCH (13:25)
[2025-09-11] MEDS: Non-Formulary Item 1 EACH (Canagliflozin [Invokana] 100 MG Tablet) PO SCH (13:27)
[2025-09-12 05:30] LABS: #Basophils 0.03 10x3/uL (0.0-0.2); #Eosinophils 0.16 10x3/uL (0.0-0.7); #Monocytes 0.54 10x3/uL (0.11-0.59); #Neutrophils 1.80 10x3/uL (1.40-6.50); %Basophils 0.6 % (0.0-1.0); %Eosinophils 3.1 % (0.0-10.0); %Lymphocytes 50.8 % (21.0-51.0); %Monocytes 10.5 % (0.0-10.0); %Neutrophils 34.8 % (42.0-75.0); Hematocrit 35.4 % (42.0-52.0); Hemoglobin 10.9 g/dL (14.0-18.0); Mean Corpuscular Hemoglobin 26.5 pg (27.0-31.0); Mean Corpuscular Volume 85.9 fL (78.0-98.0); Platelet Count 89 10x3/uL (130-400); Red Blood Cell (RBC) Count 4.12 mill/uL (4.70-6.10); White Blood Cell (WBC) Count 5.16 10x3/uL (4.8-10.8)
[2025-09-12 05:40] LABS: ALT (SGPT) 47 U/L (Less than 45); AST (SGOT) 198 U/L (11-34); Albumin 2.5 g/dL (3.1-4.5); Alkaline Phosphatase 197 U/L (40-110); Anion Gap 12 mmol/L (10-20); BUN (Urea Nitrogen) 22 mg/dL (8.4-25.7); Bilirubin, Total 0.9 mg/dL (0.3-1.2); Calc. Creatinine Clearance 115 mL/min (70-130); Calcium 8.3 mg/dL (7.8-10.44); Carbon Dioxide 22 mmol/L (23-31); Chloride 105 mmol/L (98-107); Globulin 4.1 g/dL (2.4-3.5); Glucose 116 mg/dL (83-110); Potassium 3.9 mmol/L (3.5-5.1); Sodium 135 mmol/L (136-145)
[2025-09-12] MEDS: Isosorbide Mononitrate 30 MG ER.TAB.S PO SCH (08:43)
[2025-09-12] MEDS: Finasteride 5 MG TAB PO SCH (08:43)
[2025-09-12] MEDS: Acetaminophen 325 MG TAB PO PRN (16:00)
[2025-09-13 06:08] LABS: #Basophils 0.03 10x3/uL (0.0-0.2); #Eosinophils 0.16 10x3/uL (0.0-0.7); #Monocytes 0.49 10x3/uL (0.11-0.59); #Neutrophils 1.83 10x3/uL (1.40-6.50); %Basophils 0.6 % (0.0-1.0); %Eosinophils 3.3 % (0.0-10.0); %Lymphocytes 48.0 % (21.0-51.0); %Monocytes 10.1 % (0.0-10.0); %Neutrophils 38.0 % (42.0-75.0); Hematocrit 37.1 % (42.0-52.0); Hemoglobin 11.2 g/dL (14.0-18.0); Mean Corpuscular Hemoglobin 26.1 pg (27.0-31.0); Mean Corpuscular Volume 86.5 fL (78.0-98.0); Platelet Count 103 10x3/uL (130-400); Red Blood Cell (RBC) Count 4.29 mill/uL (4.70-6.10); White Blood Cell (WBC) Count 4.83 10x3/uL (4.8-10.8)
[2025-09-13 06:13] LABS: ALT (SGPT) 80 U/L (Less than 45); AST (SGOT) 187 U/L (11-34); Albumin 2.7 g/dL (3.1-4.5); Alkaline Phosphatase 203 U/L (40-110); Anion Gap 12 mmol/L (10-20); BUN (Urea Nitrogen) 17 mg/dL (8.4-25.7); Bilirubin, Total 1.0 mg/dL (0.3-1.2); Calc. Creatinine Clearance 115 mL/min (70-130); Calcium 8.6 mg/dL (7.8-10.44); Carbon Dioxide 25 mmol/L (23-31); Chloride 103 mmol/L (98-107); Globulin 4.3 g/dL (2.4-3.5); Glucose 102 mg/dL (83-110); Potassium 3.9 mmol/L (3.5-5.1); Sodium 136 mmol/L (136-145)
[2025-09-13] MEDS: PNEUMOC 20-VAL CONJ-DIP CRM/PF 0.5 ML SYRINGE IM ONE (10:23)
[2025-09-13] MEDS ORDERED: Isosorbide Mononitrate 30 MG ER.TAB.S PO SCH (13:15)
[2025-09-13] MEDS: Carvedilol 3.125 MG TAB PO SCH ×2 (15:50→20:31)
[2025-09-13] MEDS: HYDROcodone/Acetaminophen 5/325 mg Tablet PO PRN (20:30)
[2025-09-13] MEDS: Magnesium 2 GM/50 ML(in water) 2 GM in Premix 1 BAG IVPB SCH (21:00)
[2025-09-14 04:48] LABS: ALT (SGPT) 36 U/L (Less than 45); AST (SGOT) 171 U/L (11-34); Albumin 2.7 g/dL (3.1-4.5); Alkaline Phosphatase 197 U/L (40-110); Anion Gap 12 mmol/L (10-20); BUN (Urea Nitrogen) 16 mg/dL (8.4-25.7); Bilirubin, Total 1.0 mg/dL (0.3-1.2); Calc. Creatinine Clearance 115 mL/min (70-130); Calcium 8.7 mg/dL (7.8-10.44); Carbon Dioxide 24 mmol/L (23-31); Chloride 101 mmol/L (98-107); Globulin 4.4 g/dL (2.4-3.5); Glucose 100 mg/dL (83-110); Potassium 3.8 mmol/L (3.5-5.1); Sodium 133 mmol/L (136-145)
[2025-09-14 04:49] LABS: #Basophils 0.03 10x3/uL (0.0-0.2); #Eosinophils 0.08 10x3/uL (0.0-0.7); #Monocytes 0.53 10x3/uL (0.11-0.59); #Neutrophils 1.32 10x3/uL (1.40-6.50); %Basophils 0.7 % (0.0-1.0); %Eosinophils 1.8 % (0.0-10.0); %Lymphocytes 55.6 % (21.0-51.0); %Monocytes 12.0 % (0.0-10.0); %Neutrophils 29.9 % (42.0-75.0); Hematocrit 38.5 % (42.0-52.0); Hemoglobin 11.8 g/dL (14.0-18.0); Mean Corpuscular Hemoglobin 26.3 pg (27.0-31.0); Mean Corpuscular Volume 85.9 fL (78.0-98.0); Platelet Count 106 10x3/uL (130-400); Red Blood Cell (RBC) Count 4.48 mill/uL (4.70-6.10); White Blood Cell (WBC) Count 4.41 10x3/uL (4.8-10.8)
[2025-09-14] MEDS ORDERED: Ketorolac Tromethamine 30 MG (1 mL) VIAL IVP PRN (06:26)
[2025-09-14] MEDS ORDERED: Isosorbide Mononitrate 60 MG ER.TAB PO SCH (09:00)
[2025-09-15 04:42] LABS: #Basophils 0.03 10x3/uL (0.0-0.2); #Eosinophils 0.08 10x3/uL (0.0-0.7); #Monocytes 0.71 10x3/uL (0.11-0.59); #Neutrophils 3.42 10x3/uL (1.40-6.50); %Basophils 0.5 % (0.0-1.0); %Eosinophils 1.2 % (0.0-10.0); %Lymphocytes 35.1 % (21.0-51.0); %Monocytes 10.8 % (0.0-10.0); %Neutrophils 52.2 % (42.0-75.0); Hematocrit 39.0 % (42.0-52.0); Hemoglobin 12.2 g/dL (14.0-18.0); Mean Corpuscular Hemoglobin 27.2 pg (27.0-31.0); Mean Corpuscular Volume 86.9 fL (78.0-98.0); Platelet Count 130 10x3/uL (130-400); Red Blood Cell (RBC) Count 4.49 mill/uL (4.70-6.10); White Blood Cell (WBC) Count 6.55 10x3/uL (4.8-10.8)
[2025-09-15 04:48] LABS: ALT (SGPT) 35 U/L (Less than 45); AST (SGOT) 163 U/L (11-34); Albumin 2.8 g/dL (3.1-4.5); Alkaline Phosphatase 197 U/L (40-110); Anion Gap 12 mmol/L (10-20); BUN (Urea Nitrogen) 21 mg/dL (8.4-25.7); Bilirubin, Total 0.9 mg/dL (0.3-1.2); Calc. Creatinine Clearance 99 mL/min (70-130); Calcium 8.7 mg/dL (7.8-10.44); Carbon Dioxide 22 mmol/L (23-31); Chloride 102 mmol/L (98-107); Globulin 4.3 g/dL (2.4-3.5); Glucose 98 mg/dL (83-110); Potassium 3.8 mmol/L (3.5-5.1); Sodium 132 mmol/L (136-145)
[2025-09-15] MEDS: Pregabalin 50 MG CAP PO SCH (14:38)
[2025-09-16 16:39] VITALS: BP 117/66; TEMP 97.6
== END 2025-09-16 17:55 | disposition home health service (06) | DRG 309 ==
LOC: ERS 21:12 → 2NO 09-10 00:34
PROVIDERS: ADMIT Student in an Organized Health Care Education/Training Program; ATTEND Internal Medicine
DX: I49.3 Ventricular premature depolarization (principal); E87.1 Hypo-osmolality and hyponatremia; I50.32 Chronic diastolic (congestive) heart failure; Z95.0 Presence of cardiac pacemaker; E83.42 Hypomagnesemia; E11.9 Type 2 diabetes mellitus without complications; E78.5 Hyperlipidemia, unspecified; K21.9 Gastro-esophageal reflux disease without esophagitis; I25.10 Atherosclerotic heart disease of native coronary artery without angina pectoris; F41.9 Anxiety disorder, unspecified; R20.2 Paresthesia of skin; I11.0 Hypertensive heart disease with heart failure; I48.0 Paroxysmal atrial fibrillation; J44.9 Chronic obstructive pulmonary disease, unspecified; B18.2 Chronic viral hepatitis C; R74.01 Elevation of levels of liver transaminase levels; S50.12XA Contusion of left forearm, initial encounter; M50.30 Other cervical disc degeneration, unspecified cervical region; D64.9 Anemia, unspecified; D69.6 Thrombocytopenia, unspecified; Z79.52 Long term (current) use of systemic steroids; Z98.890 Other specified postprocedural states; Z90.49 Acquired absence of other specified parts of digestive tract; Z95.5 Presence of coronary angioplasty implant and graft; Z79.4 Long term (current) use of insulin; Z88.8 Allergy status to other drugs, medicaments and biological substances; Z79.82 Long term (current) use of aspirin; Z79.899 Other long term (current) drug therapy
CPT/HCPCS: 36415; 36416; 70450; 71260; 72125; 74177; 76014; 80053; 83036; 83735; 83880; 84484; 85025; 93005; 93010; 93306; 96374; 96376; J1815; J1885; J2270; J2272; J3010; J3475; Q9967

== ENCOUNTER 2025-10-01 12:35 | Inpatient (IN) | payer OTHER, MEDICARE ==
[~2025-10-01 12:35] MED LIST changes: +Iopamidol 370 76% 100 ML VIAL ONE; -Iopamidol-370 76% 500 ML MDV (1 ML CHARGE) ONE
[2025-10-01 13:48] LABS: ALT (SGPT) 285 U/L (Less than 45); AST (SGOT) 269 U/L (11-34); Albumin 3.1 g/dL (3.1-4.5); Alkaline Phosphatase 287 U/L (40-110); Anion Gap 13 mmol/L (10-20); BUN (Urea Nitrogen) 13 mg/dL (8.4-25.7); Bilirubin, Total 0.9 mg/dL (0.3-1.2); Calc. Creatinine Clearance 0 mL/min (70-130); Calcium 8.9 mg/dL (7.8-10.44); Carbon Dioxide 25 mmol/L (23-31); Chloride 103 mmol/L (98-107); Globulin 5.5 g/dL (2.4-3.5); Glucose 244 mg/dL (83-110); Potassium 4.7 mmol/L (3.5-5.1); Sodium 136 mmol/L (136-145)
[2025-10-01 14:00] LABS: #Basophils 0.03 10x3/uL (0.0-0.2); #Eosinophils 0.07 10x3/uL (0.0-0.7); #Monocytes 0.59 10x3/uL (0.11-0.59); #Neutrophils 3.46 10x3/uL (1.40-6.50); %Basophils 0.5 % (0.0-1.0); %Eosinophils 1.2 % (0.0-10.0); %Lymphocytes 30.0 % (21.0-51.0); %Monocytes 9.9 % (0.0-10.0); %Neutrophils 58.2 % (42.0-75.0); Hematocrit 40.4 % (42.0-52.0); Hemoglobin 12.6 g/dL (14.0-18.0); Mean Corpuscular Hemoglobin 26.6 pg (27.0-31.0); Mean Corpuscular Volume 85.2 fL (78.0-98.0); Platelet Count 80 10x3/uL (130-400); Red Blood Cell (RBC) Count 4.74 mill/uL (4.70-6.10); White Blood Cell (WBC) Count 5.94 10x3/uL (4.8-10.8)
[2025-10-01] MEDS ORDERED: Aspirin Chewable 81 MG TAB ONE (14:10)
[2025-10-01 14:38] LABS: Anisocytosis SLIGHT = 6-15 cells HPF (0-5); Macrocytosis SLIGHT = 6-15 cells HPF (0-5); Microcytosis SLIGHT = 6-15 cells HPF (0-5); Ovalocytes SLIGHT = 2-5 cells HPF (0-1); Platelet Adequacy Comment Platelets Decreased; Polychromasia SLIGHT = 2-3 cells HPF (0-2)
[2025-10-01] MEDS ORDERED: predniSONE 20 MG TAB ONE (15:50)
[2025-10-01] MEDS ORDERED: Magnesium 2 GM/50 ML BAG (IN WATER) ONE (15:51)
[2025-10-01] MEDS ORDERED: Dextrose 50% Abboject 50 ML SYRINGE SLOW IVP PRN (17:05)
[2025-10-01] MEDS ORDERED: Ondansetron PF 4 MG/2 ML Vial IVP PRN (17:05)
[2025-10-01] MEDS ORDERED: Acetaminophen 325 MG TAB PO PRN (17:05)
[2025-10-01] MEDS ORDERED: Glucagon 1 MG/ML KIT IM PRN (17:05)
[2025-10-01] MEDS ORDERED: Melatonin 3 MG TAB PO PRN (17:05)
[2025-10-01] MEDS ORDERED: Acetaminophen 500 MG TAB ONE (17:06)
[2025-10-01] MEDS ORDERED: predniSONE 20 MG TAB PO SCH (17:15)
[2025-10-01] MEDS: Albuterol 2.5 MG (3 mL) NEB NEB PRN (22:11)
[2025-10-02 05:52] LABS: #Basophils Less than 0.03 10x3/uL (0.0-0.2); #Eosinophils Less than 0.03 10x3/uL (0.0-0.7); #Monocytes 0.38 10x3/uL (0.11-0.59); #Neutrophils 6.97 10x3/uL (1.40-6.50); %Basophils 0.1 % (0.0-1.0); %Eosinophils 0.0 % (0.0-10.0); %Lymphocytes 16.1 % (21.0-51.0); %Monocytes 4.3 % (0.0-10.0); %Neutrophils 79.4 % (42.0-75.0); Hematocrit 35.7 % (42.0-52.0); Hemoglobin 11.1 g/dL (14.0-18.0); Mean Corpuscular Hemoglobin 26.5 pg (27.0-31.0); Mean Corpuscular Volume 85.2 fL (78.0-98.0); Platelet Count 77 10x3/uL (130-400); Red Blood Cell (RBC) Count 4.19 mill/uL (4.70-6.10); White Blood Cell (WBC) Count 8.78 10x3/uL (4.8-10.8)
[2025-10-02 06:11] LABS: Anion Gap 15 mmol/L (10-20); BUN (Urea Nitrogen) 18 mg/dL (8.4-25.7); Calc. Creatinine Clearance 114 mL/min (70-130); Calcium 8.5 mg/dL (7.8-10.44); Carbon Dioxide 24 mmol/L (23-31); Chloride 102 mmol/L (98-107); Glucose 318 mg/dL (83-110); Potassium 4.5 mmol/L (3.5-5.1); Sodium 136 mmol/L (136-145)
[2025-10-02] MEDS ORDERED: Melatonin 3 MG TAB PO PRN (08:28)
[2025-10-02] MEDS: Carvedilol 3.125 MG TAB PO SCH (09:28)
[2025-10-02] MEDS: Insulin Glargine 30 UNITS/0.3 ML VIAL SC SCH (09:28)
[2025-10-02] MEDS: Aspirin Chewable 81 MG TAB PO SCH (09:29)
[2025-10-02] MEDS: predniSONE 20 MG TAB PO SCH (09:29)
[2025-10-02] MEDS: Pantoprazole 40 MG DR.TAB PO SCH (09:29)
[2025-10-02] MEDS: Lisinopril 10 MG TAB PO SCH (09:29)
[2025-10-02] MEDS: Multivitamin W/ Minerals 1 TAB PO SCH (09:29)
[2025-10-02] MEDS: Isosorbide Mononitrate 30 MG ER.TAB.S PO SCH (09:29)
[2025-10-02] MEDS: Pregabalin 50 MG CAP PO SCH (09:29)
[2025-10-02] MEDS: Finasteride 5 MG TAB PO SCH (09:29)
[2025-10-02] MEDS ORDERED: Methocarbamol 500 MG TAB PO PRN (10:46)
[2025-10-02] MEDS ORDERED: Non-Formulary Item 1 EACH (Insulin Aspart [Novolog Flexpen] 100 UNIT/ML Insuln.Pen) SQ SCH (12:00)
[2025-10-02] MEDS: Mometasone 200 MCG/Formoterol 5 MCG 120 PUFF INHALER INH SCH (19:09)
[2025-10-03 04:55] LABS: ALT (SGPT) 118 U/L (Less than 45); AST (SGOT) 107 U/L (11-34); Albumin 2.5 g/dL (3.1-4.5); Alkaline Phosphatase 172 U/L (40-110); Anion Gap 10 mmol/L (10-20); BUN (Urea Nitrogen) 24 mg/dL (8.4-25.7); Bilirubin, Total 0.5 mg/dL (0.3-1.2); Calc. Creatinine Clearance 112 mL/min (70-130); Calcium 8.7 mg/dL (7.8-10.44); Carbon Dioxide 26 mmol/L (23-31); Chloride 107 mmol/L (98-107); Globulin 4.2 g/dL (2.4-3.5); Glucose 205 mg/dL (83-110); Magnesium 2.0 mg/dL (1.6-2.6); Potassium 4.1 mmol/L (3.5-5.1); Sodium 139 mmol/L (136-145)
[2025-10-03 05:05] LABS: #Basophils Less than 0.03 10x3/uL (0.0-0.2); #Eosinophils Less than 0.03 10x3/uL (0.0-0.7); #Monocytes 0.52 10x3/uL (0.11-0.59); #Neutrophils 3.93 10x3/uL (1.40-6.50); %Basophils 0.1 % (0.0-1.0); %Eosinophils 0.1 % (0.0-10.0); %Lymphocytes 33.1 % (21.0-51.0); %Monocytes 7.8 % (0.0-10.0); %Neutrophils 58.8 % (42.0-75.0); Hematocrit 33.1 % (42.0-52.0); Hemoglobin 10.2 g/dL (14.0-18.0); Mean Corpuscular Hemoglobin 26.5 pg (27.0-31.0); Mean Corpuscular Volume 86.0 fL (78.0-98.0); Platelet Count 82 10x3/uL (130-400); Red Blood Cell (RBC) Count 3.85 mill/uL (4.70-6.10); White Blood Cell (WBC) Count 6.70 10x3/uL (4.8-10.8)
[2025-10-03] MEDS: Ketorolac Tromethamine 30 MG (1 mL) VIAL IVP SCH (19:11)
[2025-10-04 06:16] LABS: #Basophils Less than 0.03 10x3/uL (0.0-0.2); #Eosinophils Less than 0.03 10x3/uL (0.0-0.7); #Monocytes 0.52 10x3/uL (0.11-0.59); #Neutrophils 3.91 10x3/uL (1.40-6.50); %Basophils 0.2 % (0.0-1.0); %Eosinophils 0.0 % (0.0-10.0); %Lymphocytes 30.9 % (21.0-51.0); %Monocytes 8.1 % (0.0-10.0); %Neutrophils 60.5 % (42.0-75.0); Hematocrit 34.3 % (42.0-52.0); Hemoglobin 10.8 g/dL (14.0-18.0); Mean Corpuscular Hemoglobin 27.0 pg (27.0-31.0); Mean Corpuscular Volume 85.8 fL (78.0-98.0); Platelet Count 83 10x3/uL (130-400); Red Blood Cell (RBC) Count 4.00 mill/uL (4.70-6.10); White Blood Cell (WBC) Count 6.45 10x3/uL (4.8-10.8)
[2025-10-04 06:30] LABS: ALT (SGPT) 125 U/L (Less than 45); AST (SGOT) 106 U/L (11-34); Albumin 2.5 g/dL (3.1-4.5); Alkaline Phosphatase 172 U/L (40-110); Anion Gap 15 mmol/L (10-20); BUN (Urea Nitrogen) 32 mg/dL (8.4-25.7); Bilirubin, Total 0.5 mg/dL (0.3-1.2); Calc. Creatinine Clearance 104 mL/min (70-130); Calcium 8.6 mg/dL (7.8-10.44); Carbon Dioxide 24 mmol/L (23-31); Chloride 105 mmol/L (98-107); Globulin 4.1 g/dL (2.4-3.5); Glucose 127 mg/dL (83-110); Magnesium 1.9 mg/dL (1.6-2.6); Potassium 4.0 mmol/L (3.5-5.1); Sodium 140 mmol/L (136-145)
[2025-10-04 21:26] VITALS: BMI 28.7
[2025-10-05 07:42] VITALS: TEMP 97.9
[2025-10-05 10:05] VITALS: BP 145/76
== END 2025-10-05 11:30 | disposition home or self-care (01) | DRG 191 ==
LOC: ERS 12:35 → 2NO 16:21 → OBSVTOIN 16:21
PROVIDERS: ADMIT Family Medicine; ATTEND Internal Medicine
DX: J44.1 Chronic obstructive pulmonary disease with (acute) exacerbation (principal); I50.32 Chronic diastolic (congestive) heart failure; Z88.8 Allergy status to other drugs, medicaments and biological substances; E11.9 Type 2 diabetes mellitus without complications; E78.5 Hyperlipidemia, unspecified; K21.9 Gastro-esophageal reflux disease without esophagitis; I25.10 Atherosclerotic heart disease of native coronary artery without angina pectoris; I48.91 Unspecified atrial fibrillation; F41.9 Anxiety disorder, unspecified; I11.0 Hypertensive heart disease with heart failure; M54.2 Cervicalgia; Z90.49 Acquired absence of other specified parts of digestive tract; Z95.1 Presence of aortocoronary bypass graft; Z98.890 Other specified postprocedural states; Z91.148 Patient's other noncompliance with medication regimen for other reason; D69.6 Thrombocytopenia, unspecified; K76.0 Fatty (change of) liver, not elsewhere classified; G89.29 Other chronic pain; M54.9 Dorsalgia, unspecified; F32.A Depression, unspecified; Z93.1 Gastrostomy status; Z95.0 Presence of cardiac pacemaker; K46.9 Unspecified abdominal hernia without obstruction or gangrene; Z87.11 Personal history of peptic ulcer disease; Z79.02 Long term (current) use of antithrombotics/antiplatelets; Z79.899 Other long term (current) drug therapy; Z79.4 Long term (current) use of insulin
CPT/HCPCS: 36415; 36416; 71045; 74177; 80048; 80053; 83690; 83735; 83880; 84484; 85025; 93005; 94640; 96365; 96375; G0378; J1815; J1885; J2270; J2272; J3475; J7512; J7611; Q9967

== ENCOUNTER 2025-10-20 12:08 | Inpatient (IN) | payer OTHER, MEDICARE ==
[~2025-10-20 12:08] MED LIST changes: -Iopamidol 370 76% 100 ML VIAL ONE; +Iopamidol-370 76% 500 ML MDV (1 ML CHARGE) ONE
[2025-10-20 13:37] LABS: #Basophils Less than 0.03 10x3/uL (0.0-0.2); #Eosinophils 0.06 10x3/uL (0.0-0.7); #Monocytes 0.40 10x3/uL (0.11-0.59); #Neutrophils 2.50 10x3/uL (1.40-6.50); %Basophils 0.2 % (0.0-1.0); %Eosinophils 1.3 % (0.0-10.0); %Lymphocytes 36.9 % (21.0-51.0); %Monocytes 8.5 % (0.0-10.0); %Neutrophils 52.9 % (42.0-75.0); Hematocrit 39.3 % (42.0-52.0); Hemoglobin 12.4 g/dL (14.0-18.0); Mean Corpuscular Hemoglobin 26.7 pg (27.0-31.0); Mean Corpuscular Volume 84.7 fL (78.0-98.0); Platelet Count 83 10x3/uL (130-400); Red Blood Cell (RBC) Count 4.64 mill/uL (4.70-6.10); White Blood Cell (WBC) Count 4.72 10x3/uL (4.8-10.8)
[2025-10-20 13:58] LABS: ALT (SGPT) 195 U/L (Less than 45); AST (SGOT) 145 U/L (11-34); Albumin 2.5 g/dL (3.1-4.5); Alkaline Phosphatase 237 U/L (40-110); Anion Gap 15 mmol/L (10-20); BUN (Urea Nitrogen) 15 mg/dL (8.4-25.7); Bilirubin, Total 0.6 mg/dL (0.3-1.2); Calc. Creatinine Clearance 0 mL/min (70-130); Calcium 8.7 mg/dL (7.8-10.44); Carbon Dioxide 26 mmol/L (23-31); Chloride 104 mmol/L (98-107); Globulin 4.3 g/dL (2.4-3.5); Glucose 296 mg/dL (83-110); Potassium 4.5 mmol/L (3.5-5.1); Sodium 140 mmol/L (136-145)
[2025-10-20] MEDS ORDERED: Dextrose 50% Abboject 50 ML SYRINGE SLOW IVP PRN (15:36)
[2025-10-20] MEDS ORDERED: Nitroglycerin 0.4 MG TAB (25 Tab Bottle) SL PRN (15:36)
[2025-10-20] MEDS ORDERED: Glucagon 1 MG/ML KIT IM PRN (15:36)
[2025-10-20] MEDS ORDERED: Acetaminophen 325 MG TAB PO PRN (15:36)
[2025-10-20] MEDS ORDERED: Carvedilol 6.25 MG TAB ONE ×2 (16:50→16:51)
[2025-10-20] MEDS: Carvedilol 3.125 MG TAB PO SCH (17:05)
[2025-10-20] MEDS ORDERED: HYDROcodone/Acetaminophen 5/325 mg Tablet ONE (18:50)
[2025-10-20] MEDS: HYDROcodone/Acetaminophen 5/325 mg Tablet PO PRN (18:54)
[2025-10-20] MEDS: Mometasone 200 MCG/Formoterol 5 MCG 120 PUFF INHALER INH SCH (19:39)
[2025-10-20] MEDS ORDERED: Insulin Glargine 30 UNITS/0.3 ML VIAL ONE (20:55)
[2025-10-20] MEDS ORDERED: Famotidine 20 MG TAB ONE (20:55)
[2025-10-20] MEDS ORDERED: Carvedilol 3.125 MG TAB PO SCH (21:00)
[2025-10-20] MEDS: Insulin Glargine 30 UNITS/0.3 ML VIAL SC SCH (21:45)
[2025-10-20] MEDS: Famotidine 20 MG TAB PO SCH (21:47)
[2025-10-20] MEDS: Pregabalin 50 MG CAP PO SCH (23:58)
[2025-10-21] MEDS: Pregabalin 50 MG CAP PO SCH (00:37)
[2025-10-21] MEDS: Albuterol 200 PUFF INH INH PRN (05:05)
[2025-10-21 05:08] LABS: Anion Gap 13 mmol/L (10-20); BUN (Urea Nitrogen) 15 mg/dL (8.4-25.7); Calc. Creatinine Clearance 118 mL/min (70-130); Calcium 8.1 mg/dL (7.8-10.44); Carbon Dioxide 25 mmol/L (23-31); Cardiac Risk 2.6 (Less than 4.5); Chloride 100 mmol/L (98-107); Cholesterol 86 mg/dl (< 200 Desired); Glucose 208 mg/dL (83-110); HDL Cholesterol 33 mg/dL (>60 Neg Risk); LDL Cholesterol, Calculated 40 mg/dL; Potassium 3.9 mmol/L (3.5-5.1); Sodium 134 mmol/L (136-145); Triglycerides 64 mg/dL (Less than 150)
[2025-10-21 05:24] LABS: #Basophils 0.03 10x3/uL (0.0-0.2); #Eosinophils 0.03 10x3/uL (0.0-0.7); #Monocytes 0.69 10x3/uL (0.11-0.59); #Neutrophils 10.16 10x3/uL (1.40-6.50); %Basophils 0.2 % (0.0-1.0); %Eosinophils 0.2 % (0.0-10.0); %Lymphocytes 12.7 % (21.0-51.0); %Monocytes 5.5 % (0.0-10.0); %Neutrophils 81.0 % (42.0-75.0); Hematocrit 38.6 % (42.0-52.0); Hemoglobin 12.2 g/dL (14.0-18.0); Mean Corpuscular Hemoglobin 26.8 pg (27.0-31.0); Mean Corpuscular Volume 84.8 fL (78.0-98.0); Platelet Count 80 10x3/uL (130-400); Red Blood Cell (RBC) Count 4.55 mill/uL (4.70-6.10); White Blood Cell (WBC) Count 12.55 10x3/uL (4.8-10.8)
[2025-10-21] MEDS: Isosorbide Mononitrate 30 MG ER.TAB.S PO SCH (08:20)
[2025-10-21] MEDS: Enoxaparin 40 MG (0.4 mL) SYRINGE SC SCH (08:20)
[2025-10-21] MEDS: Finasteride 5 MG TAB PO SCH (08:21)
[2025-10-21] MEDS: Aspirin Chewable 81 MG TAB PO SCH (08:22)
[2025-10-21] MEDS: Lisinopril 10 MG TAB PO SCH (08:24)
[2025-10-21 16:13] LABS: Glucose, Urine (Dipstick) 150 mg/dL (Negative); Leukocyte Negative Leu/uL (Negative); Protein, Urine (Dipstick) 10 mg/dL (Neg-Trace); Specific Gravity, Urine 1.027 (1.002-1.036)
[2025-10-22] MEDS: Ketorolac Tromethamine 30 MG (1 mL) VIAL IVP PRN (04:03)
[2025-10-22] MEDS: Senokot S 8.6-50 MG TAB PO PRN (13:21)
[2025-10-23 04:40] LABS: #Basophils Less than 0.03 10x3/uL (0.0-0.2); #Eosinophils 0.07 10x3/uL (0.0-0.7); #Monocytes 0.42 10x3/uL (0.11-0.59); #Neutrophils 2.23 10x3/uL (1.40-6.50); %Basophils 0.2 % (0.0-1.0); %Eosinophils 1.7 % (0.0-10.0); %Lymphocytes 34.2 % (21.0-51.0); %Monocytes 10.1 % (0.0-10.0); %Neutrophils 53.8 % (42.0-75.0); Hematocrit 34.5 % (42.0-52.0); Hemoglobin 10.7 g/dL (14.0-18.0); Mean Corpuscular Hemoglobin 27.1 pg (27.0-31.0); Mean Corpuscular Volume 87.3 fL (78.0-98.0); Platelet Count 67 10x3/uL (130-400); Red Blood Cell (RBC) Count 3.95 mill/uL (4.70-6.10); White Blood Cell (WBC) Count 4.15 10x3/uL (4.8-10.8)
[2025-10-23 04:50] LABS: Anion Gap 13 mmol/L (10-20); BUN (Urea Nitrogen) 14 mg/dL (8.4-25.7); Calc. Creatinine Clearance 105 mL/min (70-130); Calcium 8.2 mg/dL (7.8-10.44); Carbon Dioxide 24 mmol/L (23-31); Chloride 104 mmol/L (98-107); Glucose 218 mg/dL (83-110); Potassium 3.9 mmol/L (3.5-5.1); Sodium 137 mmol/L (136-145)
[2025-10-23] MEDS: Pantoprazole 40 MG DR.TAB PO SCH (09:38)
[2025-10-23] MEDS: Multivitamin W/ Minerals 1 TAB PO SCH (09:38)
[2025-10-23] MEDS: Insulin Glargine 30 UNITS/0.3 ML VIAL SC SCH (21:10)
[2025-10-24] MEDS: Insulin Glargine 30 UNITS/0.3 ML VIAL SC SCH (20:26)
[2025-10-26 15:38] VITALS: BMI 28.5
[2025-10-28 13:29] LABS: #Basophils Less than 0.03 10x3/uL (0.0-0.2); #Eosinophils 0.09 10x3/uL (0.0-0.7); #Monocytes 0.42 10x3/uL (0.11-0.59); #Neutrophils 2.13 10x3/uL (1.40-6.50); %Basophils 0.4 % (0.0-1.0); %Eosinophils 1.9 % (0.0-10.0); %Lymphocytes 42.3 % (21.0-51.0); %Monocytes 9.1 % (0.0-10.0); %Neutrophils 46.1 % (42.0-75.0); Hematocrit 37.0 % (42.0-52.0); Hemoglobin 11.4 g/dL (14.0-18.0); Mean Corpuscular Hemoglobin 26.8 pg (27.0-31.0); Mean Corpuscular Volume 87.1 fL (78.0-98.0); Platelet Count 113 10x3/uL (130-400); Red Blood Cell (RBC) Count 4.25 mill/uL (4.70-6.10); White Blood Cell (WBC) Count 4.63 10x3/uL (4.8-10.8)
[2025-10-28 13:41] LABS: Anion Gap 13 mmol/L (10-20); BUN (Urea Nitrogen) 16 mg/dL (8.4-25.7); Calc. Creatinine Clearance 93 mL/min (70-130); Calcium 8.6 mg/dL (7.8-10.44); Carbon Dioxide 25 mmol/L (23-31); Chloride 104 mmol/L (98-107); Glucose 162 mg/dL (83-110); Potassium 4.2 mmol/L (3.5-5.1); Sodium 138 mmol/L (136-145)
[2025-10-28] MEDS: Melatonin 3 MG TAB PO PRN (20:02)
[2025-10-29 06:12] VITALS: BMI 29.5
[2025-10-30] MEDS: HYDROcodone/Acetaminophen 7.5/325 mg Tablet PO PRN (21:02)
[2025-10-30 22:10] VITALS: TEMP 97.6
[2025-10-31 13:18] VITALS: BP 109/59
== END 2025-10-31 14:57 | disposition home health service (06) | DRG 312 ==
LOC: ERS 12:08 → ERHOLD 15:25 → PCU 22:07 → OBSVTOIN 10-21 11:00 → T4-B 10-25 10:57
PROVIDERS: ADMIT Family Medicine; ATTEND Internal Medicine
DX: I95.2 Hypotension due to drugs (principal); I50.32 Chronic diastolic (congestive) heart failure; E78.5 Hyperlipidemia, unspecified; I25.10 Atherosclerotic heart disease of native coronary artery without angina pectoris; I48.91 Unspecified atrial fibrillation; I11.0 Hypertensive heart disease with heart failure; Z88.8 Allergy status to other drugs, medicaments and biological substances; K21.9 Gastro-esophageal reflux disease without esophagitis; F41.9 Anxiety disorder, unspecified; K74.60 Unspecified cirrhosis of liver; F32.A Depression, unspecified; F17.220 Nicotine dependence, chewing tobacco, uncomplicated; R74.01 Elevation of levels of liver transaminase levels; E86.0 Dehydration; E11.65 Type 2 diabetes mellitus with hyperglycemia; K76.0 Fatty (change of) liver, not elsewhere classified; R79.89 Other specified abnormal findings of blood chemistry; J44.9 Chronic obstructive pulmonary disease, unspecified; K27.9 Peptic ulcer, site unspecified, unspecified as acute or chronic, without hemorrhage or perforation; E11.40 Type 2 diabetes mellitus with diabetic neuropathy, unspecified; Z96.651 Presence of right artificial knee joint; Z90.89 Acquired absence of other organs; Z79.4 Long term (current) use of insulin; Z90.49 Acquired absence of other specified parts of digestive tract; Z95.810 Presence of automatic (implantable) cardiac defibrillator; Z95.5 Presence of coronary angioplasty implant and graft; Z98.890 Other specified postprocedural states; Z79.82 Long term (current) use of aspirin; Z79.899 Other long term (current) drug therapy
CPT/HCPCS: 36415; 36416; 71275; 80048; 80053; 80061; 81003; 83880; 84484; 85025; 93005; 93010; 94664; 94760; 96374; G0378; J1650; J1815; J1885; J3010; Q9967